=== PATIENT | female | born 1970 | race African-American/Black ===

== ENCOUNTER 2023-07-02 14:15 | Outpatient (AMB) | payer OTHER, SELFPAY ==
--- NOTE | 2023-07-02 14:17 | HO.NEPHOV ---
HPI HPI Comments History of Present Illness Details I had the privilege of seeing Nettie in follow-up of her recent renal transplant on 03/19/2023.( donor). She had PRA of 65. She was induced with Campath. She had delayed graft function. She required for dialysis treatments post transplant. 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 She had been getting immunosuppression with tacrolimus and mycophenolate. Her tacrolimus dosage has been adjusted with the help of ketoconazole. Her baseline serum creatinine has been around 1.2 to 1.5 mg/dL. CMV status of the donor was negative and recipient was positive. EBV status of donor and recipient were positive. Hepatitis B core antibody was negative for donor and recipient. Hepatitis C antibody was negative for donor and recipient. She had been BK virus negative by PCR as of 06/16/23. Prospera was completed on 06/26/2023. There is no history of any rejection to date. Her donor specific antibody has been negative. She had been getting envarsus 11mg and myfortic 720/720mg. Prophylaxis therapy included atovoquone daily ( d/c date 09/18/23 ) and valcyte (d/c date 09/18/23). She had 2 readmissions post transplant (05/03/23 for htn urgency & on 05/14/23 hyperkalemia). She currently feels very well and did not have any new complaints at the time of this office visit. [facility] Medical History (Updated 07/16/23 @ 06:20 by Jone Gallego MD) Anemia Seizures Hypertension Lupus History of end stage renal disease Surgical History (Updated 07/02/23 @ 14:50 by Jone Gallego MD) History of kidney transplant Vital Signs 07/02/23 14:18 Height 5 ft 2 in Weight 147 lb BMI 26.9 BP 140/90 H Blood Pressure Location Lt brachial Position Sitting Pulse 93 Pulse Source Pulse Oximeter Pulse Oximetry (%) 100 Oxygen Delivery Method Room Air Physical Exam Vital Signs: Last Vital Signs Pulse 93 07/02/23 14:18 BP 140/90 H 07/02/23 14:18 Pulse Ox 100 07/02/23 14:18 Oxygen Delivery Method Room Air 07/02/23 14:18 BMI result Body Mass Index 26.9 Const General: comfortable and no acute distress Orientation/consciousness: patient oriented x3 HEENT Head: Yes normocephalic Mouth: Normal oral and palatal mucosa present Eyes EOM: EOMs intact bilaterally Neck Neck: Yes supple Resp Auscultation: clear to auscultation bilaterally Cardio Jugular venous distension: no JVD Rate: regular rate GI Palpation (GI): Soft to palpation Auscultation: normal bowel sounds Skin General skin exam: no rashes or lesions noted Neuro General: patient oriented x3 and moves all extremities Extrem General: Yes no pedal edema Assessment & Plan Assessment & Plan (1) History of kidney transplant: Code(s): Z94.0 - Kidney transplant status (2) Hypertension: Code(s): I10 - Essential (primary) hypertension Qualifiers: Hypertension type: primary hypertension Qualified Code(s): I10 - Essential (primary) hypertension (3) Lupus: Code(s): M32.9 - Systemic lupus erythematosus, unspecified (4) Secondary hyperparathyroidism (of renal origin): Code(s): N25.81 - Secondary hyperparathyroidism of renal origin Plan 1. Allograft function: stable; follow up labs 2. Immunosuppression: tac level reviewed and dose has been adjusted 3. BP and volume status: stable; no changes 4. Metabolic parameters: potassium stable with diet changes; on magnesium and will follow up labs 5. Hematologic parameters: anemia stable; no need for intervention; follow for now 6. Prophylaxis/infection: reviewed; tolerating; no changes Orders: Orders Blood Urea Nitrogen 07/02/23 Z94.0 - Kidney transplant status Creatinine 07/02/23 Z94.0 - Kidney transplant status Calcium 07/02/23 Z94.0 - Kidney transplant status Complete Blood Count Auto Diff 07/02/23 Z94.0 - Kidney transplant status Electrolytes 07/02/23 Z94.0 - Kidney transplant status Magnesium 07/02/23 Z94.0 - Kidney transplant status Phosphorus 07/02/23 Z94.0 - Kidney transplant status Tacrolimus Prograf 07/02/23 Z94.0 - Kidney transplant status Coding Level of Care Code Est Pt Level 4 (42041) Diagnoses History of kidney transplant Z94.0 Primary hypertension I10 Hypertension type: primary hypertension Lupus M32.9 Secondary hyperparathyroidism (of renal origin) N25.81 Results Reviewed Nephrology Results: No Data to Display
[2023-07-02 14:18] VITALS: BP 140/90; PULSE 93; O2SAT 100; BMI 26.9
== END 2023-07-02 14:59 | disposition home or self-care (01) ==
PROVIDERS: Visit Provider Internal Medicine Nephrology
DX: Z94.0 Kidney transplant status (principal); I10 Essential (primary) hypertension; M32.9 Systemic lupus erythematosus, unspecified; N25.81 Secondary hyperparathyroidism of renal origin
CPT/HCPCS: 99214

== ENCOUNTER → 2023-07-02 14:15 | Outpatient (BNVA) | payer OTHER, SELFPAY | PROVIDERS: Visit Provider Internal Medicine Nephrology | DX: I10 Essential (primary) hypertension (principal); N25.81 Secondary hyperparathyroidism of renal origin; M32.9 Systemic lupus erythematosus, unspecified | CPT/HCPCS: 99212 ==

== ENCOUNTER 2023-07-16 09:25 | Outpatient (AMB) | payer OTHER, SELFPAY ==
--- NOTE | 2023-07-16 09:34 | HO.NEPHOV ---
HPI HPI Comments History of Present Illness Details I had the privilege of seeing Nettie in follow-up of her recent renal transplant on 03/19/2023.( donor). She had PRA of 65. She was induced with Campath. She had delayed graft function. She required for dialysis treatments post transplant. 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 She had been getting immunosuppression with tacrolimus and mycophenolate. Her tacrolimus dosage has been adjusted with the help of ketoconazole. Her baseline serum creatinine has been around 1.2 to 1.5 mg/dL. CMV status of the donor was negative and recipient was positive. EBV status of donor and recipient were positive. Hepatitis B core antibody was negative for donor and recipient. Hepatitis C antibody was negative for donor and recipient. She had been BK virus negative by PCR as of 06/16/23. Prospera was completed on 06/26/2023. There is no history of any rejection to date. Her donor specific antibody has been negative. She had been getting envarsus 11mg and myfortic 720/720mg. Prophylaxis therapy included atovoquone daily ( d/c date 09/18/23 ) and valcyte (d/c date 09/18/23). She had 2 readmissions post transplant (05/03/23 for htn urgency & on 05/14/23 hyperkalemia). She currently feels very well and did not have any new complaints at the time of this office visit. [facility] Medical History (Updated 07/16/23 @ 06:20 by Jone Gallego MD) Anemia Seizures Hypertension Lupus History of end stage renal disease Surgical History History of kidney transplant Vital Signs 07/16/23 09:56 Height 5 ft 2 in Weight 145 lb 8 oz BMI 26.6 BP 120/80 Blood Pressure Location Rt brachial Position Sitting Pulse 94 Pulse Source Pulse Oximeter Pulse Oximetry (%) 100 Oxygen Delivery Method Room Air Physical Exam Vital Signs: Last Vital Signs Pulse 94 07/16/23 09:56 BP 120/80 07/16/23 09:56 Pulse Ox 100 07/16/23 09:56 Oxygen Delivery Method Room Air 07/16/23 09:56 BMI result Body Mass Index 26.6 Const General: comfortable and no acute distress Orientation/consciousness: patient oriented x3 HEENT Head: Yes normocephalic Mouth: Normal oral and palatal mucosa present Eyes EOM: EOMs intact bilaterally Neck Neck: Yes supple Resp Auscultation: clear to auscultation bilaterally Cardio Jugular venous distension: no JVD Rate: regular rate GI Other: No tenderness over transplant Palpation (GI): Soft to palpation Auscultation: normal bowel sounds General: Yes no CVA tenderness Back/Spine/Pelvis Back: no CVA tenderness Skin General skin exam: no rashes or lesions noted Neuro General: patient oriented x3 and moves all extremities Extrem General: Yes no pedal edema Assessment & Plan Assessment & Plan (1) Lupus: Code(s): M32.9 - Systemic lupus erythematosus, unspecified (2) Hypertension: Code(s): I10 - Essential (primary) hypertension Qualifiers: Hypertension type: primary hypertension Qualified Code(s): I10 - Essential (primary) hypertension (3) History of kidney transplant: Code(s): Z94.0 - Kidney transplant status (4) Secondary hyperparathyroidism (of renal origin): Code(s): N25.81 - Secondary hyperparathyroidism of renal origin Plan 1. Allograft function: stable; follow up labs 2. Immunosuppression: tac level reviewed and dose has been adjusted 3. BP and volume status: stable; no changes 4. Metabolic parameters: potassium stable with diet changes; on magnesium and will follow up labs 5. Hematologic parameters: anemia stable; no need for intervention; follow for now 6. Prophylaxis/infection: reviewed; tolerating; no changes Orders: Orders Electrolytes 3 Weeks I10 - Essential (primary) hypertension, M32.9 - Systemic lupus erythematosus, unspecified, N25.81 - Secondary hyperparathyroidism of renal origin, Z94.0 - Kidney transplant status Calcium 3 Weeks I10 - Essential (primary) hypertension, M32.9 - Systemic lupus erythematosus, unspecified, N25.81 - Secondary hyperparathyroidism of renal origin, Z94.0 - Kidney transplant status Complete Blood Count Auto Diff 3 Weeks I10 - Essential (primary) hypertension, M32.9 - Systemic lupus erythematosus, unspecified, N25.81 - Secondary hyperparathyroidism of renal origin, Z94.0 - Kidney transplant status Tacrolimus Prograf 3 Weeks I10 - Essential (primary) hypertension, M32.9 - Systemic lupus erythematosus, unspecified, N25.81 - Secondary hyperparathyroidism of renal origin, Z94.0 - Kidney transplant status Creatinine 3 Weeks I10 - Essential (primary) hypertension, M32.9 - Systemic lupus erythematosus, unspecified, N25.81 - Secondary hyperparathyroidism of renal origin, Z94.0 - Kidney transplant status Blood Urea Nitrogen 3 Weeks I10 - Essential (primary) hypertension, M32.9 - Systemic lupus erythematosus, unspecified, N25.81 - Secondary hyperparathyroidism of renal origin, Z94.0 - Kidney transplant status Parathyroid Hormone Intact 3 Weeks I10 - Essential (primary) hypertension, M32.9 - Systemic lupus erythematosus, unspecified, N25.81 - Secondary hyperparathyroidism of renal origin, Z94.0 - Kidney transplant status Vitamin D 25-OH Total 3 Weeks I10 - Essential (primary) hypertension, M32.9 - Systemic lupus erythematosus, unspecified, N25.81 - Secondary hyperparathyroidism of renal origin, Z94.0 - Kidney transplant status Alanine Aminotransferase 3 Weeks I10 - Essential (primary) hypertension, M32.9 - Systemic lupus erythematosus, unspecified, N25.81 - Secondary hyperparathyroidism of renal origin, Z94.0 - Kidney transplant status Aspartate Amino Transferase 3 Weeks I10 - Essential (primary) hypertension, M32.9 - Systemic lupus erythematosus, unspecified, N25.81 - Secondary hyperparathyroidism of renal origin, Z94.0 - Kidney transplant status Coding Level of Care Code Est Pt Level 4 (73246) Diagnoses Lupus M32.9 Primary hypertension I10 Hypertension type: primary hypertension History of kidney transplant Z94.0 Secondary hyperparathyroidism (of renal origin) N25.81 Results Reviewed Nephrology Results: No Data to Display
[2023-07-16 09:56] VITALS: BP 120/80; PULSE 94; O2SAT 100; BMI 26.6
== END 2023-07-16 10:36 | disposition home or self-care (01) ==
PROVIDERS: Visit Provider Internal Medicine Nephrology
DX: M32.9 Systemic lupus erythematosus, unspecified (principal); I10 Essential (primary) hypertension; Z94.0 Kidney transplant status; N25.81 Secondary hyperparathyroidism of renal origin
CPT/HCPCS: 99214

== ENCOUNTER → 2023-07-16 09:25 | Outpatient (BNVA) | payer OTHER, SELFPAY | PROVIDERS: Visit Provider Internal Medicine Nephrology ==

== ENCOUNTER 2023-07-16 09:34 | Outpatient (REF) | payer OTHER, SELFPAY | END 2023-07-16 09:35 | disposition home or self-care (01) | LOC: HO.HKASLDS 09:34 | PROVIDERS: Visit Provider Internal Medicine Nephrology | DX: M32.9 Systemic lupus erythematosus, unspecified (principal); I10 Essential (primary) hypertension; N25.81 Secondary hyperparathyroidism of renal origin; Z94.0 Kidney transplant status | CPT/HCPCS: 99212 ==

== ENCOUNTER 2023-08-11 11:31 | Outpatient (AMB) | payer OTHER, SELFPAY ==
[2023-08-11 11:34] VITALS: BP 120/88; PULSE 78; O2SAT 98; BMI 26.7
--- NOTE | 2023-08-11 11:34 | HO.NEPHOV ---
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 She had PRA of 65. She was induced with Campath. She had delayed graft function. She required for dialysis treatments post transplant. 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 She had been getting immunosuppression with tacrolimus and mycophenolate. Her tacrolimus dosage has been adjusted with the help of ketoconazole. Her baseline serum creatinine has been around 1.2 to 1.5 mg/dL. CMV status of the donor was negative and recipient was positive. EBV status of donor and recipient were positive. Hepatitis B core antibody was negative for donor and recipient. Hepatitis C antibody was negative for donor and recipient. She had been BK virus negative by PCR as of 06/16/23. Prospera was completed on 06/26/2023. There is no history of any rejection to date. Her donor specific antibody has been negative. She had been getting envarsus 11mg and myfortic 720/720mg. Prophylaxis therapy included atovoquone daily ( d/c date 09/18/23 ) and valcyte (d/c date 09/18/23). She had 2 readmissions post transplant (05/03/23 for htn urgency & on 05/14/23 hyperkalemia). She occasionally gets GERD symptoms. She currently feels very well and did not have any new complaints at the time of this office visit. [facility] Medical History (Updated 07/16/23 @ 06:20 by Jone Gallego MD) Anemia Seizures Hypertension Lupus History of end stage renal disease Surgical History History of kidney transplant Social History (Updated 08/11/23 @ 11:48 by Winsome Angel MA) Alcohol intake: never Patient Tobacco Use Status: Never used Tobacco Use of substances other than those prescribed or required for medical reasons: No Physical Exam Vital Signs: Last Vital Signs Pulse 78 08/11/23 11:34 BP 120/88 08/11/23 11:34 Pulse Ox 98 08/11/23 11:34 Oxygen Delivery Method Room Air 08/11/23 11:34 BMI result Body Mass Index 26.7 Const General: comfortable and no acute distress Orientation/consciousness: patient oriented x3 HEENT Head: Yes normocephalic Mouth: Normal oral and palatal mucosa present Eyes EOM: EOMs intact bilaterally Neck Neck: Yes supple Resp Auscultation: clear to auscultation bilaterally Cardio Jugular venous distension: no JVD Rate: regular rate GI Palpation (GI): Soft to palpation Auscultation: normal bowel sounds General: Yes no CVA tenderness Back/Spine/Pelvis Back: no CVA tenderness Skin General skin exam: no rashes or lesions noted Neuro General: patient oriented x3 and moves all extremities Extrem General: Yes no pedal edema Results Reviewed Nephrology Results: No Data to Display Assessment & Plan Assessment & Plan (1) Secondary hyperparathyroidism (of renal origin): Code(s): N25.81 - Secondary hyperparathyroidism of renal origin Category: Medical (2) Lupus: Code(s): M32.9 - Systemic lupus erythematosus, unspecified Category: Medical (3) History of kidney transplant: Code(s): Z94.0 - Kidney transplant status Category: Surgical Plan 1. Allograft function: stable; follow up labs 2. Immunosuppression: tac level reviewed and dose has been adjusted 3. BP and volume status: stable; no changes 4. Metabolic parameters: potassium stable with diet changes; on magnesium and will follow up labs 5. Hematologic parameters: anemia stable; no need for intervention; follow for now 6. Prophylaxis/infection: reviewed; tolerating; no changes Orders: Orders Tacrolimus Prograf Today M32.9 - Systemic lupus erythematosus, unspecified, N25.81 - Secondary hyperparathyroidism of renal origin, Z94.0 - Kidney transplant status Blood Urea Nitrogen Today M32.9 - Systemic lupus erythematosus, unspecified, N25.81 - Secondary hyperparathyroidism of renal origin, Z94.0 - Kidney transplant status Electrolytes Today M32.9 - Systemic lupus erythematosus, unspecified, N25.81 - Secondary hyperparathyroidism of renal origin, Z94.0 - Kidney transplant status Calcium Today M32.9 - Systemic lupus erythematosus, unspecified, N25.81 - Secondary hyperparathyroidism of renal origin, Z94.0 - Kidney transplant status Aspartate Amino Transferase Today M32.9 - Systemic lupus erythematosus, unspecified, N25.81 - Secondary hyperparathyroidism of renal origin, Z94.0 - Kidney transplant status Creatinine Today M32.9 - Systemic lupus erythematosus, unspecified, N25.81 - Secondary hyperparathyroidism of renal origin, Z94.0 - Kidney transplant status Phosphorus Today M32.9 - Systemic lupus erythematosus, unspecified, N25.81 - Secondary hyperparathyroidism of renal origin, Z94.0 - Kidney transplant status Magnesium Today M32.9 - Systemic lupus erythematosus, unspecified, N25.81 - Secondary hyperparathyroidism of renal origin, Z94.0 - Kidney transplant status Alanine Aminotransferase Today M32.9 - Systemic lupus erythematosus, unspecified, N25.81 - Secondary hyperparathyroidism of renal origin, Z94.0 - Kidney transplant status Coding Level of Care Code Est Pt Level 4 (79029) Diagnoses Secondary hyperparathyroidism (of renal origin) N25.81 Lupus M32.9 History of kidney transplant Z94.0
== END 2023-08-11 12:22 | disposition home or self-care (01) ==
PROVIDERS: Visit Provider Internal Medicine Nephrology
DX: N25.81 Secondary hyperparathyroidism of renal origin (principal); M32.9 Systemic lupus erythematosus, unspecified; Z94.0 Kidney transplant status
CPT/HCPCS: 99214

== ENCOUNTER → 2023-08-11 11:31 | Outpatient (BNVA) | payer OTHER, SELFPAY | PROVIDERS: Visit Provider Internal Medicine Nephrology | DX: N25.81 Secondary hyperparathyroidism of renal origin (principal); M32.9 Systemic lupus erythematosus, unspecified; Z94.0 Kidney transplant status | CPT/HCPCS: 99212 ==

== ENCOUNTER 2023-08-12 10:07 | Outpatient (REF) | payer OTHER, SELFPAY ==
[2023-08-12 15:09] LABS: Anion Gap 13 (12-20); Carbon Dioxide 23 mmol/L (22-29); Chloride 111 mmol/L (96-108); Estimated Glomerular Filt Rate 44; Potassium 5.3 mmol/L (3.3-5.1); Sodium 142 mmol/L (135-145)
[2023-08-13 10:13] LABS: Tacrolimus Prograf 6.8 mcg/L
== END 2023-08-12 10:08 | disposition home or self-care (01) ==
LOC: HO.HKASLDS 10:07
PROVIDERS: Visit Provider Internal Medicine Nephrology
DX: N25.81 Secondary hyperparathyroidism of renal origin (principal); M32.9 Systemic lupus erythematosus, unspecified; I10 Essential (primary) hypertension; Z94.0 Kidney transplant status
CPT/HCPCS: 36415; 80051; 80197; 82310; 82565

== ENCOUNTER 2023-08-25 10:55 | Outpatient (AMB) | payer OTHER, SELFPAY ==
--- NOTE | 2023-08-25 11:12 | HO.NEPHOV_ITS ---
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 She had PRA of 65. She was induced with Campath. She had delayed graft function. She required for dialysis treatments post transplant. 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 She had been getting immunosuppression with tacrolimus and mycophenolate. Her tacrolimus dosage has been adjusted with the help of ketoconazole. Her baseline serum creatinine has been around 1.2 to 1.5 mg/dL. CMV status of the donor was negative and recipient was positive. EBV status of donor and recipient were positive. Hepatitis B core antibody was negative for donor and recipient. Hepatitis C antibody was negative for donor and recipient. She had been BK virus negative by PCR as of 06/16/23. Prospera was completed on 06/26/2023. There is no history of any rejection to date. Her donor specific antibody has been negative. She had been getting envarsus 11mg and myfortic 720/720mg. Prophylaxis therapy included atovoquone daily ( d/c date 09/18/23 ) and valcyte (d/c date 09/18/23). She had 2 readmissions post transplant (05/03/23 for htn urgency & on 05/14/23 hyperkalemia). She occasionally gets GERD symptoms. She currently feels very well and did not have any new complaints at the time of this office visit. [facility] Medical History (Updated 07/16/23 @ 06:20 by Jone Gallego MD) Anemia Seizures Hypertension Lupus History of end stage renal disease Surgical History History of kidney transplant Social History (Updated 08/11/23 @ 11:48 by Winsome Angel MA) Alcohol intake: never Patient Tobacco Use Status: Never used Tobacco Physical Exam Const General: comfortable and no acute distress Orientation/consciousness: patient oriented x3 HEENT Head: Yes normocephalic Mouth: Normal oral and palatal mucosa present Eyes EOM: EOMs intact bilaterally Neck Neck: Yes supple Resp Auscultation: clear to auscultation bilaterally Cardio Jugular venous distension: no JVD Rate: regular rate GI Palpation (GI): Soft to palpation Auscultation: normal bowel sounds General: Yes no CVA tenderness Back/Spine/Pelvis Back: no CVA tenderness Skin General skin exam: no rashes or lesions noted Neuro General: patient oriented x3 and moves all extremities Extrem General: Yes no pedal edema Results Reviewed Nephrology Results: Sodium 142 mmol/L (135-145) 08/12/23 Potassium 5.3 mmol/L (3.3-5.1) H 08/12/23 Chloride 111 mmol/L (96-108) H 08/12/23 Carbon Dioxide 23 mmol/L (22-29) 08/12/23 Creatinine 1.29 mg/dL (0.5-1.4) 08/12/23 Calcium 10.0 mg/dL (8.4-10.2) 08/12/23 Assessment & Plan Assessment & Plan (1) Secondary hyperparathyroidism (of renal origin): Code(s): N25.81 - Secondary hyperparathyroidism of renal origin Category: Medical (2) Lupus: Code(s): M32.9 - Systemic lupus erythematosus, unspecified Category: Medical (3) Hypertension: Code(s): I10 - Essential (primary) hypertension Category: Medical Qualifiers: Hypertension type: primary hypertension Qualified Code(s): I10 - Essential (primary) hypertension (4) History of kidney transplant: Code(s): Z94.0 - Kidney transplant status Category: Surgical Plan 1. Allograft function: stable; follow up labs 2. Immunosuppression: tac level reviewed and C/W with current dose 3. BP and volume status: stable; no changes 4. Metabolic parameters: potassium stable with diet changes; on magnesium and will follow up labs 5. Hematologic parameters: anemia stable; no need for intervention; follow for now 6. Prophylaxis/infection: reviewed; tolerating; no changes Orders: Orders Other Ref Test - Misc Today Z94.0 - Kidney transplant status Magnesium Today Z94.0 - Kidney transplant status Complete Blood Count Auto Diff Today Z94.0 - Kidney transplant status Calcium Today Z94.0 - Kidney transplant status Blood Urea Nitrogen Today Z94.0 - Kidney transplant status Creatinine Today Z94.0 - Kidney transplant status Alanine Aminotransferase Today Z94.0 - Kidney transplant status Tacrolimus Prograf Today Z94.0 - Kidney transplant status Phosphorus Today Z94.0 - Kidney transplant status Electrolytes Today Z94.0 - Kidney transplant status Aspartate Amino Transferase Today Z94.0 - Kidney transplant status Coding Level of Care Code Est Pt Level 4 (61354) Diagnoses Secondary hyperparathyroidism (of renal origin) N25.81 Lupus M32.9 Primary hypertension I10 Hypertension type: primary hypertension History of kidney transplant Z94.0
[2023-08-25 11:14] VITALS: BP 130/70; PULSE 110; O2SAT 97; BMI 27.0
== END 2023-08-25 11:45 | disposition home or self-care (01) ==
PROVIDERS: Visit Provider Internal Medicine Nephrology
DX: N25.81 Secondary hyperparathyroidism of renal origin (principal); M32.9 Systemic lupus erythematosus, unspecified; I10 Essential (primary) hypertension; Z94.0 Kidney transplant status
CPT/HCPCS: 99214

== ENCOUNTER → 2023-08-25 10:55 | Outpatient (BNVA) | payer OTHER, SELFPAY | PROVIDERS: Visit Provider Internal Medicine Nephrology | DX: N25.81 Secondary hyperparathyroidism of renal origin (principal); M32.9 Systemic lupus erythematosus, unspecified; I10 Essential (primary) hypertension; Z94.0 Kidney transplant status | CPT/HCPCS: 99212 ==

== ENCOUNTER 2023-09-10 09:07 | Outpatient (REF) | payer OTHER, SELFPAY | END 2023-09-10 09:08 | disposition home or self-care (01) | LOC: HO.HKASLDS 09:07 | PROVIDERS: Visit Provider Internal Medicine Nephrology | DX: Z13.89 Encounter for screening for other disorder (principal) ==

== ENCOUNTER 2023-09-15 16:06 | Outpatient (AMB) | payer OTHER, SELFPAY ==
--- NOTE | 2023-09-15 16:40 | HO.NEPHOV_ITS ---
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 She had PRA of 65. She was induced with Campath. She had delayed graft function. She required for dialysis treatments post transplant. 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 She had been getting immunosuppression with tacrolimus and mycophenolate. Her tacrolimus dosage has been adjusted with the help of ketoconazole. Her baseline serum creatinine has been around 1.2 to 1.5 mg/dL. CMV status of the donor was negative and recipient was positive. EBV status of donor and recipient were positive. Hepatitis B core antibody was negative for donor and recipient. Hepatitis C antibody was negative for donor and recipient. She had been BK virus negative by PCR as of 06/16/23. Prospera was completed on 06/26/2023. There is no history of any rejection to date. Her donor specific antibody has been negative. She had been getting envarsus 11mg and myfortic 720/720mg. Prophylaxis therapy included atovoquone daily ( d/c date 09/18/23 ) and valcyte (d/c date 09/18/23). She had 2 readmissions post transplant (05/03/23 for htn urgency & on 05/14/23 hyperkalemia). She occasionally gets GERD symptoms. She currently feels very well and did not have any new complaints at the time of this office visit. [facility] Medical History (Updated 07/16/23 @ 06:20 by Jone Gallego MD) Anemia Seizures Hypertension Lupus History of end stage renal disease Surgical History History of kidney transplant Social History Alcohol intake: never Patient Tobacco Use Status: Never used Tobacco Physical Exam Vital Signs: Last Vital Signs Pulse 98 09/15/23 16:41 BP 140/80 H 09/15/23 16:41 Pulse Ox 99 09/15/23 16:41 Oxygen Delivery Method Room Air 09/15/23 16:41 BMI result Body Mass Index 26.5 Const General: comfortable and no acute distress Orientation/consciousness: patient oriented x3 HEENT Head: Yes normocephalic Mouth: Normal oral and palatal mucosa present Eyes EOM: EOMs intact bilaterally Neck Neck: Yes supple Resp Auscultation: clear to auscultation bilaterally Cardio Jugular venous distension: no JVD Rate: regular rate GI Palpation (GI): Soft to palpation Auscultation: normal bowel sounds General: Yes no CVA tenderness Back/Spine/Pelvis Back: no CVA tenderness Skin General skin exam: no rashes or lesions noted Neuro General: patient oriented x3 and moves all extremities Extrem General: Yes no pedal edema Results Reviewed Nephrology Results: Sodium 142 mmol/L (135-145) 08/12/23 Potassium 5.3 mmol/L (3.3-5.1) H 08/12/23 Chloride 111 mmol/L (96-108) H 08/12/23 Carbon Dioxide 23 mmol/L (22-29) 08/12/23 Creatinine 1.29 mg/dL (0.5-1.4) 08/12/23 Calcium 10.0 mg/dL (8.4-10.2) 08/12/23 Assessment & Plan Assessment & Plan (1) Secondary hyperparathyroidism (of renal origin): Code(s): N25.81 - Secondary hyperparathyroidism of renal origin Category: Medical (2) Lupus: Code(s): M32.9 - Systemic lupus erythematosus, unspecified Category: Medical (3) Hypertension: Code(s): I10 - Essential (primary) hypertension Category: Medical Qualifiers: Hypertension type: primary hypertension Qualified Code(s): I10 - Essential (primary) hypertension (4) History of kidney transplant: Code(s): Z94.0 - Kidney transplant status Category: Surgical Plan 1. Allograft function: stable graft function 2. Immunosuppression: tac level reviewed and C/W with current dose 3. BP and volume status: stable; no changes 4. Metabolic parameters: potassium stable with diet changes; on magnesium and will follow up labs 5. Hematologic parameters: anemia stable; no need for intervention; follow for now 6. Prophylaxis/infection: Prophylaxis therapy included atovoquone daily ( d/c date 09/18/23 ) and valcyte (d/c date 09/18/23) Orders: Orders Complete Blood Count Auto Diff Today I10 - Essential (primary) hypertension, M32.9 - Systemic lupus erythematosus, unspecified, N25.81 - Secondary hyperparathyroidism of renal origin, Z94.0 - Kidney transplant status Creatinine Today I10 - Essential (primary) hypertension, M32.9 - Systemic lupus erythematosus, unspecified, N25.81 - Secondary hyperparathyroidism of renal origin, Z94.0 - Kidney transplant status Blood Urea Nitrogen Today I10 - Essential (primary) hypertension, M32.9 - Systemic lupus erythematosus, unspecified, N25.81 - Secondary hyperparathyroidism of renal origin, Z94.0 - Kidney transplant status Electrolytes Today I10 - Essential (primary) hypertension, M32.9 - Systemic lupus erythematosus, unspecified, N25.81 - Secondary hyperparathyroidism of renal origin, Z94.0 - Kidney transplant status Magnesium Today I10 - Essential (primary) hypertension, M32.9 - Systemic lupus erythematosus, unspecified, N25.81 - Secondary hyperparathyroidism of renal origin, Z94.0 - Kidney transplant status Creatinine 1 Month I10 - Essential (primary) hypertension, M32.9 - Systemic lupus erythematosus, unspecified, N25.81 - Secondary hyperparathyroidism of renal origin, Z94.0 - Kidney transplant status Blood Urea Nitrogen 1 Month I10 - Essential (primary) hypertension, M32.9 - Systemic lupus erythematosus, unspecified, N25.81 - Secondary hyperparathyroidism of renal origin, Z94.0 - Kidney transplant status Electrolytes 1 Month I10 - Essential (primary) hypertension, M32.9 - Systemic lupus erythematosus, unspecified, N25.81 - Secondary hyperparathyroidism of renal origin, Z94.0 - Kidney transplant status Tacrolimus Prograf 1 Month I10 - Essential (primary) hypertension, M32.9 - Systemic lupus erythematosus, unspecified, N25.81 - Secondary hyperparathyroidism of renal origin, Z94.0 - Kidney transplant status Tacrolimus Prograf Today I10 - Essential (primary) hypertension, M32.9 - Systemic lupus erythematosus, unspecified, N25.81 - Secondary hyperparathyroidism of renal origin, Z94.0 - Kidney transplant status Calcium Today I10 - Essential (primary) hypertension, M32.9 - Systemic lupus erythematosus, unspecified, N25.81 - Secondary hyperparathyroidism of renal origin, Z94.0 - Kidney transplant status Phosphorus Today I10 - Essential (primary) hypertension, M32.9 - Systemic lupus erythematosus, unspecified, N25.81 - Secondary hyperparathyroidism of renal origin, Z94.0 - Kidney transplant status Alanine Aminotransferase Today I10 - Essential (primary) hypertension, M32.9 - Systemic lupus erythematosus, unspecified, N25.81 - Secondary hyperparathyroid ism of renal origin, Z94.0 - Kidney transplant status Aspartate Amino Transferase Today I10 - Essential (primary) hypertension, M32.9 - Systemic lupus erythematosus, unspecified, N25.81 - Secondary hyperparathyroidism of renal origin, Z94.0 - Kidney transplant status Coding Level of Care Code Est Pt Level 4 (15714) Diagnoses Secondary hyperparathyroidism (of renal origin) N25.81 Lupus M32.9 Primary hypertension I10 Hypertension type: primary hypertension History of kidney transplant Z94.0
[2023-09-15 16:41] VITALS: BP 140/80; PULSE 98; O2SAT 99; BMI 26.5
== END 2023-09-15 17:01 | disposition home or self-care (01) ==
PROVIDERS: Visit Provider Internal Medicine Nephrology
DX: N25.81 Secondary hyperparathyroidism of renal origin (principal); M32.9 Systemic lupus erythematosus, unspecified; I10 Essential (primary) hypertension; Z94.0 Kidney transplant status
CPT/HCPCS: 99214

== ENCOUNTER → 2023-09-15 16:06 | Outpatient (BNVA) | payer OTHER, SELFPAY | PROVIDERS: Visit Provider Internal Medicine Nephrology | DX: N25.81 Secondary hyperparathyroidism of renal origin (principal); M32.9 Systemic lupus erythematosus, unspecified; I10 Essential (primary) hypertension; Z94.0 Kidney transplant status | CPT/HCPCS: 99212 ==

== ENCOUNTER 2023-10-29 13:51 | Outpatient (AMB) | payer OTHER, SELFPAY ==
[2023-10-29 14:08] VITALS: BP 116/70; PULSE 103; O2SAT 98; BMI 26.3
--- NOTE | 2023-10-29 14:08 | HO.NEPHOV_ITS ---
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 She had PRA of 65. She was induced with Campath. She had delayed graft function. She required for dialysis treatments post transplant. 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 She had been getting immunosuppression with tacrolimus and mycophenolate. Her tacrolimus dosage has been adjusted with the help of ketoconazole. Her baseline serum creatinine has been around 1.2 to 1.5 mg/dL. CMV status of the donor was negative and recipient was positive. EBV status of donor and recipient were positive. Hepatitis B core antibody was negative for donor and recipient. Hepatitis C antibody was negative for donor and recipient. She had been BK virus negative by PCR as of 06/16/23. Prospera was completed on 06/26/2023. There is no history of any rejection to date. Her donor specific antibody has been negative. She had been getting envarsus 11mg and myfortic 720/720mg. Prophylaxis therapy included atovoquone daily ( d/c date 09/18/23 ) and valcyte (d/c date 09/18/23). She had 2 readmissions post transplant (05/03/23 for htn urgency & on 05/14/23 hyperkalemia). She occasionally gets GERD symptoms. She currently feels very well and did not have any new complaints at the time of this office visit. [facility] Medical History (Updated 07/16/23 @ 06:20 by Jone Gallego MD) Anemia Seizures Hypertension Lupus History of end stage renal disease Surgical History History of kidney transplant Social History Alcohol intake: never Patient Tobacco Use Status: Never used Tobacco Physical Exam Vital Signs: BMI result Body Mass Index 26.3 Const General: comfortable and no acute distress Orientation/consciousness: patient oriented x3 HEENT Head: Yes normocephalic Mouth: Normal oral and palatal mucosa present Eyes EOM: EOMs intact bilaterally Neck Neck: Yes supple Resp Auscultation: clear to auscultation bilaterally Cardio Jugular venous distension: no JVD Rate: regular rate GI Palpation (GI): Soft to palpation Auscultation: normal bowel sounds General: Yes no CVA tenderness Back/Spine/Pelvis Back: no CVA tenderness Skin General skin exam: no rashes or lesions noted Neuro General: patient oriented x3 and moves all extremities Extrem General: Yes no pedal edema Results Reviewed Nephrology Results: Sodium 142 mmol/L (135-145) 08/12/23 Potassium 5.3 mmol/L (3.3-5.1) H 08/12/23 Chloride 111 mmol/L (96-108) H 08/12/23 Carbon Dioxide 23 mmol/L (22-29) 08/12/23 Creatinine 1.29 mg/dL (0.5-1.4) 08/12/23 Calcium 10.0 mg/dL (8.4-10.2) 08/12/23 Assessment & Plan Assessment & Plan (1) History of kidney transplant: Code(s): Z94.0 - Kidney transplant status Category: Surgical (2) Hypertension: Code(s): I10 - Essential (primary) hypertension Category: Medical Qualifiers: Hypertension type: primary hypertension Qualified Code(s): I10 - Essential (primary) hypertension (3) Secondary hyperparathyroidism (of renal origin): Code(s): N25.81 - Secondary hyperparathyroidism of renal origin Category: Medical Plan 1. Allograft function: stable graft function 2. Immunosuppression: C/W with current dose ; Repeat labs ordered 3. BP and volume status: stable; no changes 4. Metabolic parameters: potassium stable with diet changes; on magnesium and will follow up labs 5. Hematologic parameters: anemia stable; no need for intervention; follow for now 6. Prophylaxis/infection: Prophylaxis therapy included atovoquone daily ( d/dustin date 09/18/23 ) and valcyte (d/dustin date 09/18/23) Orders: Orders Complete Blood Count Auto Diff Today I10 - Essential (primary) hypertension, N25.81 - Secondary hyperparathyroidism of renal origin, Z94.0 - Kidney transplant status Creatinine Today I10 - Essential (primary) hypertension, N25.81 - Secondary hyperparathyroidism of renal origin, Z94.0 - Kidney transplant status Electrolytes Today I10 - Essential (primary) hypertension, N25.81 - Secondary hyperparathyroidism of renal origin, Z94.0 - Kidney transplant status Magnesium Today I10 - Essential (primary) hypertension, N25.81 - Secondary hyperparathyroidism of renal origin, Z94.0 - Kidney transplant status Tacrolimus Prograf Today I10 - Essential (primary) hypertension, N25.81 - Secondary hyperparathyroidism of renal origin, Z94.0 - Kidney transplant status Vitamin D 25-OH Total Today I10 - Essential (primary) hypertension, N25.81 - Secondary hyperparathyroidism of renal origin, Z94.0 - Kidney transplant status Blood Urea Nitrogen Today I10 - Essential (primary) hypertension, N25.81 - Secondary hyperparathyroidism of renal origin, Z94.0 - Kidney transplant status Calcium Today I10 - Essential (primary) hypertension, N25.81 - Secondary hyperparathyroidism of renal origin, Z94.0 - Kidney transplant status Phosphorus Today I10 - Essential (primary) hypertension, N25.81 - Secondary hyperparathyroidism of renal origin, Z94.0 - Kidney transplant status Protein Creatinine Ratio, Ur Today I10 - Essential (primary) hypertension, N25.81 - Secondary hyperparathyroidism of renal origin, Z94.0 - Kidney transplant status Coding Level of Care Code Est Pt Level 4 (49877) Diagnoses History of kidney transplant Z94.0 Primary hypertension I10 Hypertension type: primary hypertension Secondary hyperparathyroidism (of renal origin) N25.81
== END 2023-10-29 14:53 | disposition home or self-care (01) ==
PROVIDERS: PCP Internal Medicine; Visit Provider Internal Medicine Nephrology
DX: Z94.0 Kidney transplant status (principal); I10 Essential (primary) hypertension; N25.81 Secondary hyperparathyroidism of renal origin
CPT/HCPCS: 99214

== ENCOUNTER → 2023-10-29 13:51 | Outpatient (BNVA) | payer OTHER, SELFPAY | PROVIDERS: PCP Internal Medicine; Visit Provider Internal Medicine Nephrology | DX: I10 Essential (primary) hypertension (principal); N25.81 Secondary hyperparathyroidism of renal origin; Z94.0 Kidney transplant status | CPT/HCPCS: 99212 ==

== ENCOUNTER 2023-10-31 08:15 | Outpatient (REF) | payer OTHER, SELFPAY ==
[2023-10-31 08:45] LABS: MANUAL DIFF FLAG NO
[2023-10-31 08:52] LABS: Basophils Percent Auto 0.3 % (0-2); Eosinophils Absolute Auto 0.1 X10*3/uL (0.0-0.4); Eosinophils Percent Auto 2.7 % (0-4); Hematocrit 35.7 % (37.0-47.0); Hemoglobin 11.5 g/dl (12.0-16.0); Imm Gran Abs Auto 0.15 X10*3/uL (0.00-0.03); Lymphocytes Absolute Auto 0.4 X10*3/uL (1.2-4.9); Lymphocytes Percent Auto 12.3 % (20-40); Mean Corpuscular HGB Conc 32.2 g/dl (31.0-35.0); Mean Corpuscular Hemoglobin 30.7 pg (27.0-33.0); Mean Corpuscular Volume 95.2 fL (80.0-98.0); Mean Platelet Volume 8.9 fL (9.4-12.3); Monocytes Absolute Auto 0.4 X10*3/uL (0.1-1.2); Neutrophils Percent Auto 66.7 % (45-73); Platelet Count 192 X10*3/uL (160-400); Red Blood Count 3.75 X10*6/uL (4.20-5.50); Red Cell Distribution Width 13.3 % (11.0-16.0)
[2023-10-31 09:30] LABS: Anion Gap 12 (12-20); Blood Urea Nitrogen 32 mg/dL (9-16); Calcium 10.4 mg/dL (8.4-10.2); Carbon Dioxide 25 mmol/L (22-29); Chloride 110 mmol/L (96-108); Estimated Glomerular Filt Rate 41; Magnesium 1.7 mg/dL (1.6-2.6); Phosphorus 2.9 mg/dL (2.7-4.5); Sodium 142 mmol/L (135-145)
[2023-10-31 09:47] LABS: Vitamin D 25-OH Total 55.1 ng/mL (>30)
[2023-10-31 10:05] LABS: Creatinine Urine 77.68 mg/dL; Total Protein Urine Random < 7 mg/dL (<12)
[2023-11-01 21:49] LABS: Tacrolimus Prograf 6.9 mcg/L
== END 2023-10-31 08:16 | disposition home or self-care (01) ==
LOC: HO.LAB 08:15
PROVIDERS: Visit Provider Internal Medicine Nephrology
DX: N25.81 Secondary hyperparathyroidism of renal origin (principal); I10 Essential (primary) hypertension; Z94.0 Kidney transplant status
CPT/HCPCS: 36415; 80051; 80197; 82306; 82310; 82565; 82570; 83735; 84100; 84156; 84520; 85025

== ENCOUNTER 2023-11-26 14:46 | Outpatient (AMB) | payer OTHER, SELFPAY ==
--- NOTE | 2023-11-26 15:21 | HO.NEPHOV ---
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 She had PRA of 65. She was induced with Campath. She had delayed graft function. She required for dialysis treatments post transplant. 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 She had been getting immunosuppression with tacrolimus and mycophenolate. Her tacrolimus dosage has been adjusted with the help of ketoconazole. Her baseline serum creatinine has been around 1.2 to 1.5 mg/dL. CMV status of the donor was negative and recipient was positive. EBV status of donor and recipient were positive. Hepatitis B core antibody was negative for donor and recipient. Hepatitis C antibody was negative for donor and recipient. She had been BK virus negative by PCR as of 06/16/23. Prospera was completed on 06/26/2023. There is no history of any rejection to date. Her donor specific antibody has been negative. She had been getting envarsus 11mg and myfortic 720/720mg. Prophylaxis therapy included atovoquone daily ( d/c date 09/18/23 ) and valcyte (d/c date 09/18/23). She had 2 readmissions post transplant (05/03/23 for htn urgency & on 05/14/23 hyperkalemia). She occasionally gets GERD symptoms. She currently feels very well and did not have any new complaints at the time of this office visit. [facility] Medical History (Updated 07/16/23 @ 06:20 by Jone Gallego MD) Anemia Seizures Hypertension Lupus History of end stage renal disease Surgical History History of kidney transplant Social History Alcohol intake: never Patient Tobacco Use Status: Never used Tobacco Review of Systems Const All systems reviewed & are unremarkable except as noted in HPI and below Physical Exam Vital Signs: Last Vital Signs Pulse 92 11/26/23 15:22 BP 138/80 11/26/23 15:22 Pulse Ox 98 11/26/23 15:22 Oxygen Delivery Method Room Air 11/26/23 15:22 BMI result Body Mass Index 26.4 Const General: comfortable and no acute distress Orientation/consciousness: patient oriented x3 HEENT Head: Yes normocephalic Mouth: Normal oral and palatal mucosa present Eyes EOM: EOMs intact bilaterally Neck Neck: Yes supple Resp Auscultation: clear to auscultation bilaterally Cardio Jugular venous distension: no JVD Rate: regular rate GI Palpation (GI): Soft to palpation Auscultation: normal bowel sounds General: Yes no CVA tenderness Back/Spine/Pelvis Back: no CVA tenderness Skin General skin exam: no rashes or lesions noted Neuro General: patient oriented x3 and moves all extremities Extrem General: Yes no pedal edema Results Reviewed Nephrology Results: Hgb 11.5 g/dl (12.0-16.0) L 10/31/23 WBC 3.0 X10*3/uL (4.8-10.8) L 10/31/23 Plt Count 192 X10*3/uL (160-400) 10/31/23 Sodium 142 mmol/L (135-145) 10/31/23 Potassium 5.0 mmol/L (3.3-5.1) 10/31/23 Chloride 110 mmol/L (96-108) H 10/31/23 Carbon Dioxide 25 mmol/L (22-29) 10/31/23 BUN 32 mg/dL (9-16) H 10/31/23 Creatinine 1.37 mg/dL (0.5-1.4) 10/31/23 Calcium 10.4 mg/dL (8.4-10.2) H 10/31/23 Phosphorus 2.9 mg/dL (2.7-4.5) 10/31/23 Urine Creatinine 77.68 mg/dL 10/31/23 Protein/Creatinin Ratio TNP 10/31/23 Assessment & Plan Assessment & Plan (1) Secondary hyperparathyroidism (of renal origin): Code(s): N25.81 - Secondary hyperparathyroidism of renal origin Category: Medical (2) Lupus: Code(s): M32.9 - Systemic lupus erythematosus, unspecified Category: Medical (3) Hypertension: Code(s): I10 - Essential (primary) hypertension Category: Medical Qualifiers: Hypertension type: primary hypertension Qualified Code(s): I10 - Essential (primary) hypertension (4) History of kidney transplant: Code(s): Z94.0 - Kidney transplant status Category: Surgical Plan 1. Allograft function: stable graft function 2. Immunosuppression: Recently reduced cellcept; C/W with current dose ; Repeat labs ordered 3. BP and volume status: stable; no changes 4. Metabolic parameters: potassium stable with diet changes; on magnesium and will follow up labs 5. Hematologic parameters: anemia stable; no need for intervention; follow for now 6. Prophylaxis/infection: Prophylaxis therapy included atovoquone daily ( d/dustin date 09/18/23 ) and valcyte (d/dustin date 09/18/23) Orders: Orders Blood Urea Nitrogen 2 Months I10 - Essential (primary) hypertension, M32.9 - Systemic lupus erythematosus, unspecified, N25.81 - Secondary hyperparathyroidism of renal origin, Z94.0 - Kidney transplant status Calcium 2 Months I10 - Essential (primary) hypertension, M32.9 - Systemic lupus erythematosus, unspecified, N25.81 - Secondary hyperparathyroidism of renal origin, Z94.0 - Kidney transplant status Magnesium 2 Months I10 - Essential (primary) hypertension, M32.9 - Systemic lupus erythematosus, unspecified, N25.81 - Secondary hyperparathyroidism of renal origin, Z94.0 - Kidney transplant status Complete Blood Count Auto Diff 2 Months I10 - Essential (primary) hypertension, M32.9 - Systemic lupus erythematosus, unspecified, N25.81 - Secondary hyperparathyroidism of renal origin, Z94.0 - Kidney transplant status Creatinine 2 Months I10 - Essential (primary) hypertension, M32.9 - Systemic lupus erythematosus, unspecified, N25.81 - Secondary hyperparathyroidism of renal origin, Z94.0 - Kidney transplant status Electrolytes 2 Months I10 - Essential (primary) hypertension, M32.9 - Systemic lupus erythematosus, unspecified, N25.81 - Secondary hyperparathyroidism of renal origin, Z94.0 - Kidney transplant status Parathyroid Hormone Intact 2 Months I10 - Essential (primary) hypertension, M32.9 - Systemic lupus erythematosus, unspecified, N25.81 - Secondary hyperparathyroidism of renal origin, Z94.0 - Kidney transplant status Tacrolimus Prograf 2 Months I10 - Essential (primary) hypertension, M32.9 - Systemic lupus erythematosus, unspecified, N25.81 - Secondary hyperparathyroidism of renal origin, Z94.0 - Kidney transplant status Phosphorus 2 Months I10 - Essential (primary) hypertension, M32.9 - Systemic lupus erythematosus, unspecified, N25.81 - Secondary hyperparathyroidism of renal origin, Z94.0 - Kidney transplant status Medications: Changed From clonidine HCl 0.1 mg PO BID 60 tabs 3RF To clonidine HCl 0.1 mg PO BID 180 tabs 3RF 90 days Coding Level of Care Code Est Pt Level 4 (33729) Diagnoses Secondary hyperparathyroidism (of renal origin) N25.81 Lupus M32.9 Primary hypertension I10 Hypertension type: primary hypertension History of kidney transplant Z94.0
[2023-11-26 15:22] VITALS: BP 138/80; PULSE 92; O2SAT 98; BMI 26.4
== END 2023-11-26 15:49 | disposition home or self-care (01) ==
PROVIDERS: PCP Internal Medicine; Visit Provider Internal Medicine Nephrology
DX: N25.81 Secondary hyperparathyroidism of renal origin (principal); M32.9 Systemic lupus erythematosus, unspecified; I10 Essential (primary) hypertension; Z94.0 Kidney transplant status
CPT/HCPCS: 99214

== ENCOUNTER → 2023-11-26 14:46 | Outpatient (BNVA) | payer OTHER, SELFPAY | PROVIDERS: PCP Internal Medicine; Visit Provider Internal Medicine Nephrology | DX: N25.81 Secondary hyperparathyroidism of renal origin (principal); M32.9 Systemic lupus erythematosus, unspecified; I10 Essential (primary) hypertension; Z94.0 Kidney transplant status | CPT/HCPCS: 99212 ==

== ENCOUNTER 2024-01-23 07:05 | Outpatient (REF) | payer OTHER, SELFPAY ==
[2024-01-23 08:02] LABS: Basophils Percent Auto 0.6 % (0-2); Eosinophils Absolute Auto 0.2 X10*3/uL (0.0-0.4); Eosinophils Percent Auto 5.1 % (0-4); Hematocrit 41.9 % (37.0-47.0); Hemoglobin 13.1 g/dl (12.0-16.0); Imm Gran Abs Auto 0.01 X10*3/uL (0.00-0.03); Imm Gran Pct Auto 0.3 % (0.0-0.4); Lymphocytes Absolute Auto 1.2 X10*3/uL (1.2-4.9); Lymphocytes Percent Auto 34.5 % (20-40); MANUAL DIFF FLAG SCAN; Mean Corpuscular HGB Conc 31.3 g/dl (31.0-35.0); Mean Corpuscular Hemoglobin 29.8 pg (27.0-33.0); Mean Corpuscular Volume 95.4 fL (80.0-98.0); Mean Platelet Volume 9.7 fL (9.4-12.3); Monocytes Absolute Auto 0.4 X10*3/uL (0.1-1.2); Monocytes Percent Auto 9.9 % (2-11); Neutrophils Absolute Auto 1.8 x10*3/uL (2.0-8.3); Neutrophils Percent Auto 49.6 % (45-73); PLT CLUMP 1; Red Blood Count 4.39 X10*6/uL (4.20-5.50); SCAN SMEAR FLAG 1
[2024-01-23 08:06] LABS: White Blood Count 3.5 X10*3/uL (4.8-10.8)
[2024-01-23 08:18] LABS: Anion Gap 11 (12-20); Blood Urea Nitrogen 42 mg/dL (9-16); Calcium 11.1 mg/dL (8.4-10.2); Carbon Dioxide 25 mmol/L (22-29); Chloride 110 mmol/L (96-108); Estimated Glomerular Filt Rate 41; Magnesium 1.7 mg/dL (1.6-2.6); Phosphorus 3.5 mg/dL (2.7-4.5); Potassium 4.5 mmol/L (3.3-5.1); Sodium 141 mmol/L (135-145)
[2024-01-23 09:15] LABS: Platelet Count 214 X10*3/uL (160-400); SLIDE REVIEW VERIFIED
[2024-01-24 14:38] LABS: Tacrolimus Prograf 8.4 mcg/L
== END 2024-01-23 07:06 | disposition home or self-care (01) ==
LOC: HO.LAB 07:05
PROVIDERS: PCP Internal Medicine; Visit Provider Internal Medicine Nephrology
DX: N25.81 Secondary hyperparathyroidism of renal origin (principal); M32.9 Systemic lupus erythematosus, unspecified; I10 Essential (primary) hypertension; Z94.0 Kidney transplant status
CPT/HCPCS: 36415; 80051; 80197; 82310; 82565; 83735; 83970; 84100; 84520; 85025

== ENCOUNTER 2024-01-26 15:30 | Outpatient (AMB) | payer OTHER, SELFPAY ==
--- NOTE | 2024-01-26 15:32 | HO.NEPHOV ---
Vital Signs 01/26/24 15:34 Height 5 ft 2 in Weight 159 lb 4 oz BMI 29.1 BP 110/70 Blood Pressure Location Rt radial Position Sitting Pulse 87 Pulse Source Pulse Oximeter Pulse Oximetry (%) 99 Oxygen Delivery Method Room Air Intake Visit Reasons: 2 mon follow up/ Conf [employer] Impregnating Range Tender Required: No Accompanied by: Self / Same As Patient Allergies gabapentin Allergy (Mild, Verified 01/26/24 15:37) Unknown lisinopril Allergy (Mild, Verified 01/26/24 15:37) Unknown losartan Allergy (Mild, Verified 01/26/24 15:37) Unknown HPI Comments Details: I had the privilege of seeing Nettie in follow-up of her recent renal transplant on 03/19/2023.( donor). She had PRA of 65. She was induced with Campath. She had delayed graft function. She required for dialysis treatments post transplant. 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 She had been getting immunosuppression with tacrolimus and mycophenolate. Her tacrolimus dosage has been adjusted with the help of ketoconazole. Her baseline serum creatinine has been around 1.2 to 1.5 mg/dL. CMV status of the donor was negative and recipient was positive. EBV status of donor and recipient were positive. Hepatitis B core antibody was negative for donor and recipient. Hepatitis C antibody was negative for donor and recipient. She had been BK virus negative by PCR as of 06/16/23. Prospera was completed on 06/26/2023. There is no history of any rejection to date. Her donor specific antibody has been negative. She had been getting envarsus 11mg and myfortic 720/720mg. Prophylaxis therapy included atovoquone daily ( d/c date 09/18/23 ) and valcyte (d/c date 09/18/23). She had 2 readmissions post transplant (05/03/23 for htn urgency & on 05/14/23 hyperkalemia). She occasionally gets GERD symptoms. She currently feels very well and did not have any new complaints at the time of this office visit. [facility] Medical History (Updated 07/16/23 @ 06:20 by Jone Gallego MD) Anemia Seizures Hypertension Lupus History of end stage renal disease Surgical History History of kidney transplant Social History Alcohol intake: never Patient Tobacco Use Status: Never used Tobacco Review of Systems Const All systems reviewed & are unremarkable except as noted in HPI and below Physical Exam Vital Signs: Last Vital Signs Pulse 87 01/26/24 15:34 BP 110/70 01/26/24 15:34 Pulse Ox 99 01/26/24 15:34 Oxygen Delivery Method Room Air 01/26/24 15:34 BMI result Body Mass Index 29.1 Const General: comfortable and no acute distress Orientation/consciousness: patient oriented x3 HEENT Head: Yes normocephalic Mouth: Normal oral and palatal mucosa present Eyes EOM: EOMs intact bilaterally Neck Neck: Yes supple Resp Auscultation: clear to auscultation bilaterally Cardio Jugular venous distension: no JVD Rate: regular rate GI Palpation (GI): Soft to palpation Auscultation: normal bowel sounds General: Yes no CVA tenderness Back/Spine/Pelvis Back: no CVA tenderness Skin General skin exam: no rashes or lesions noted Neuro General: patient oriented x3 and moves all extremities Extrem General: Yes no pedal edema Results Reviewed Nephrology Results: Hgb 13.1 g/dl (12.0-16.0) 01/23/24 WBC 3.5 X10*3/uL (4.8-10.8) L 01/23/24 Plt Count 214 X10*3/uL (160-400) 01/23/24 Sodium 141 mmol/L (135-145) 01/23/24 Potassium 4.5 mmol/L (3.3-5.1) 01/23/24 Chloride 110 mmol/L (96-108) H 01/23/24 Carbon Dioxide 25 mmol/L (22-29) 01/23/24 BUN 42 mg/dL (9-16) H 01/23/24 Creatinine 1.35 mg/dL (0.5-1.4) 01/23/24 Calcium 11.1 mg/dL (8.4-10.2) H 01/23/24 Phosphorus 3.5 mg/dL (2.7-4.5) 01/23/24 PTH Intact 108.0 pg/mL (8.7-77.1) H 01/23/24 Urine Creatinine 77.68 mg/dL 10/31/23 Protein/Creatinin Ratio TNP 10/31/23 Assessment & Plan Assessment & Plan (1) History of kidney transplant: Code(s): Z94.0 - Kidney transplant status Category: Surgical (2) Hypertension: Code(s): I10 - Essential (primary) hypertension Category: Medical Qualifiers: Hypertension type: primary hypertension Qualified Code(s): I10 - Essential (primary) hypertension (3) Lupus: Code(s): M32.9 - Systemic lupus erythematosus, unspecified Category: Medical (4) Secondary hyperparathyroidism (of renal origin): Code(s): N25.81 - Secondary hyperparathyroidism of renal origin Category: Medical Plan 1. Allograft function: stable graft function 2. Immunosuppression: C/W with current medications 3. BP and volume status: stable; no changes 4. Metabolic parameters: potassium stable with diet changes; on magnesium and will follow up labs 5. Hematologic parameters: anemia stable; no need for intervention; follow for now 6. Prophylaxis/infection: Prophylaxis therapy included atovoquone daily ( d/dustin date 09/18/23 ) and valcyte (d/dustin date 09/18/23) Stopped NaHCO3 and Vit D for now Orders: Orders Creatinine 2 Months I10 - Essential (primary) hypertension, M32.9 - Systemic lupus erythematosus, unspecified, N25.81 - Secondary hyperparathyroidism of renal origin, Z94.0 - Kidney transplant status Blood Urea Nitrogen 2 Months I10 - Essential (primary) hypertension, M32.9 - Systemic lupus erythematosus, unspecified, N25.81 - Secondary hyperparathyroidism of renal origin, Z94.0 - Kidney transplant status Electrolytes 2 Months I10 - Essential (primary) hypertension, M32.9 - Systemic lupus erythematosus, unspecified, N25.81 - Secondary hyperparathyroidism of renal origin, Z94.0 - Kidney transplant status Calcium 2 Months I10 - Essential (primary) hypertension, M32.9 - Systemic lupus erythematosus, unspecified, N25.81 - Secondary hyperparathyroidism of renal origin, Z94.0 - Kidney transplant status Phosphorus 2 Months I10 - Essential (primary) hypertension, M32.9 - Systemic lupus erythematosus, unspecified, N25.81 - Secondary hyperparathyroidism of renal origin, Z94.0 - Kidney transplant status Complete Blood Count Auto Diff 2 Months I10 - Essential (primary) hypertension, M32.9 - Systemic lupus erythematosus, unspecified, N25.81 - Secondary hyperparathyroidism of renal origin, Z94.0 - Kidney transplant status Tacrolimus Prograf 2 Months I10 - Essential (primary) hypertension, M32.9 - Systemic lupus erythematosus, unspecified, N25.81 - Secondary hyperparathyroidism of renal origin, Z94.0 - Kidney transplant status Medications: Discontinued cholecalciferol (vitamin D3) Discontinued Reason: Doctor's Order 1,250 mcg PO QWEEK 90 days 13 caps 1RF Coding Level of Care Code Est Pt Level 4 (84479) Diagnoses History of kidney transplant Z94.0 Primary hypertension I10 Hypertension type: primary hypertension Lupus M32.9 Secondary hyperparathyroidism (of renal origin) N25.81
[2024-01-26 15:34] VITALS: BP 110/70; PULSE 87; O2SAT 99; BMI 29.1
== END 2024-01-26 16:05 | disposition home or self-care (01) ==
PROVIDERS: PCP Internal Medicine; Visit Provider Internal Medicine Nephrology
DX: Z94.0 Kidney transplant status (principal); I10 Essential (primary) hypertension; M32.9 Systemic lupus erythematosus, unspecified; N25.81 Secondary hyperparathyroidism of renal origin
CPT/HCPCS: 99214

== ENCOUNTER → 2024-01-26 15:30 | Outpatient (BNVA) | payer OTHER, SELFPAY | PROVIDERS: PCP Internal Medicine; Visit Provider Internal Medicine Nephrology | DX: N25.81 Secondary hyperparathyroidism of renal origin (principal); M32.9 Systemic lupus erythematosus, unspecified; I10 Essential (primary) hypertension; Z94.0 Kidney transplant status | CPT/HCPCS: 99212 ==

== ENCOUNTER 2024-04-20 08:44 | Outpatient (REF) | payer OTHER, SELFPAY | END 2024-04-20 08:45 | disposition home or self-care (01) | LOC: HO.HKASLDS 08:44 | PROVIDERS: Visit Provider Internal Medicine Nephrology | DX: Z13.89 Encounter for screening for other disorder (principal) | CPT/HCPCS: 36415 ==

== ENCOUNTER 2024-04-21 14:42 | Outpatient (AMB) | payer OTHER, SELFPAY ==
--- NOTE | 2024-04-21 14:54 | HO.NEPHOV_ITS ---
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 She had PRA of 65. She was induced with Campath. She had delayed graft function. She required for dialysis treatments post transplant. 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 She had been getting immunosuppression with tacrolimus and mycophenolate. Her tacrolimus dosage has been adjusted with the help of ketoconazole. Her baseline serum creatinine has been around 1.2 to 1.5 mg/dL. CMV status of the donor was negative and recipient was positive. EBV status of donor and recipient were positive. Hepatitis B core antibody was negative for donor and recipient. Hepatitis C antibody was negative for donor and recipient. She had been BK virus negative by PCR as of 06/16/23. Prospera was completed on 06/26/2023. There is no history of any rejection to date. Her donor specific antibody has been negative. She had been getting envarsus 11mg and myfortic 720/720mg. Prophylaxis therapy included atovoquone daily ( d/c date 09/18/23 ) and valcyte (d/c date 09/18/23). She had 2 readmissions post transplant (05/03/23 for htn urgency & on 05/14/23 hyperkalemia). She occasionally gets GERD symptoms. She currently feels very well and did not have any new complaints at the time of this office visit. [facility] Medical History (Updated 07/16/23 @ 06:20 by Jone Gallego MD) Anemia Seizures Hypertension Lupus History of end stage renal disease Surgical History History of kidney transplant Social History Alcohol intake: never Patient Tobacco Use Status: Never used Tobacco Review of Systems Const All systems reviewed & are unremarkable except as noted in HPI and below Physical Exam Vital Signs: Last Vital Signs Pulse 88 04/21/24 14:57 BP 110/80 04/21/24 14:57 Pulse Ox 99 04/21/24 14:57 Oxygen Delivery Method Room Air 04/21/24 14:57 BMI result Body Mass Index 30.7 Const General: comfortable and no acute distress Orientation/consciousness: patient oriented x3 HEENT Head: Yes normocephalic Mouth: Normal oral and palatal mucosa present Eyes EOM: EOMs intact bilaterally Neck Neck: Yes supple Resp Auscultation: clear to auscultation bilaterally Cardio Jugular venous distension: no JVD Rate: regular rate GI Palpation (GI): Soft to palpation Auscultation: normal bowel sounds General: Yes no CVA tenderness Back/Spine/Pelvis Back: no CVA tenderness Skin General skin exam: no rashes or lesions noted Neuro General: patient oriented x3 and moves all extremities Extrem General: Yes no pedal edema Assessment & Plan Assessment & Plan (1) History of kidney transplant: Code(s): Z94.0 - Kidney transplant status Category: Surgical (2) Hypertension: Code(s): I10 - Essential (primary) hypertension Category: Medical Qualifiers: Hypertension type: primary hypertension Qualified Code(s): I10 - Essential (primary) hypertension (3) Lupus: Code(s): M32.9 - Systemic lupus erythematosus, unspecified Category: Medical (4) Secondary hyperparathyroidism (of renal origin): Code(s): N25.81 - Secondary hyperparathyroidism of renal origin Category: Medical Plan 1. Allograft function: stable graft function 2. Immunosuppression: C/W with current medications 3. BP and volume status: stable; no changes 4. Metabolic parameters: potassium stable with diet changes; on magnesium and will follow up labs 5. Hematologic parameters: anemia stable; no need for intervention; follow for now 6. Prophylaxis/infection: Prophylaxis therapy included atovoquone daily ( d/dustin date 09/18/23 ) and valcyte (d/dustin date 09/18/23) Orders: Orders Electrolytes 1 Day I10 - Essential (primary) hypertension, M32.9 - Systemic lupus erythematosus, unspecified, N25.81 - Secondary hyperparathyroidism of renal origin, Z94.0 - Kidney transplant status Phosphorus 1 Day I10 - Essential (primary) hypertension, M32.9 - Systemic lupus erythematosus, unspecified, N25.81 - Secondary hyperparathyroidism of renal origin, Z94.0 - Kidney transplant status Protein Creatinine Ratio, Ur 1 Day I10 - Essential (primary) hypertension, M32.9 - Systemic lupus erythematosus, unspecified, N25.81 - Secondary hyperparathyroidism of renal origin, Z94.0 - Kidney transplant status Parathyroid Hormone Intact 1 Day I10 - Essential (primary) hypertension, M32.9 - Systemic lupus erythematosus, unspecified, N25.81 - Secondary hyperparathyroidism of renal origin, Z94.0 - Kidney transplant status Vitamin D 25-OH Total 1 Day I10 - Essential (primary) hypertension, M32.9 - Systemic lupus erythematosus, unspecified, N25.81 - Secondary hyperparathyroidism of renal origin, Z94.0 - Kidney transplant status Complete Blood Count Auto Diff 2 Months I10 - Essential (primary) hypertension, M32.9 - Systemic lupus erythematosus, unspecified, N25.81 - Secondary hyperparathyroidism of renal origin, Z94.0 - Kidney transplant status Creatinine 2 Months I10 - Essential (primary) hypertension, M32.9 - Systemic lupus erythematosus, unspecified, N25.81 - Secondary hyperparathyroidism of renal origin, Z94.0 - Kidney transplant status Complete Blood Count Auto Diff 1 Day I10 - Essential (primary) hypertension, M32.9 - Systemic lupus erythematosus, unspecified, N25.81 - Secondary hyperparathyroidism of renal origin, Z94.0 - Kidney transplant status Creatinine 1 Day I10 - Essential (primary) hypertension, M32.9 - Systemic lupus erythematosus, unspecified, N25.81 - Secondary hyperparathyroidism of renal origin, Z94.0 - Kidney transplant status Blood Urea Nitrogen 1 Day I10 - Essential (primary) hypertension, M32.9 - Systemic lupus erythematosus, unspecified, N25.81 - Secondary hyperparathyroidism of renal origin, Z94.0 - Kidney transplant status Calcium 1 Day I10 - Essential (primary) hypertension, M32.9 - Systemic lupus erythematosus, unspecified, N25.81 - Secondary hyperparathyroidism of renal origin, Z94.0 - Kidney transplant status Magnesium 1 Day I10 - Essential (primary) hypertension, M32.9 - Systemic lupus erythematosus, unspecified, N25.81 - Secondary hyperparathyroidism of renal origin, Z94.0 - Kidney transplant status Tacrolimus Prograf 1 Day I10 - Essential (primary) hypertension, M32.9 - Systemic lupus erythematosus, unspecified, N25.81 - Secondary hyperparathyroidism of renal origin, Z94.0 - Kidney transplant status Alanine Aminotransferase 1 Day I10 - Essential (primary) hypertension, M32.9 - Systemic lupus erythematosus, unspecified, N25.81 - Secondary hyperparathyroidism of renal origin, Z94.0 - Kidney transplant status Aspartate Amino Transferase 1 Day I10 - Essential (primary) hypertension, M32.9 - Systemic lupus erythematosus, unspecified, N25.81 - Secondary hyperparathyroidism of renal origin, Z94.0 - Kidney transplant status Tacrolimus Prograf 2 Months I10 - Essential (primary) hypertension, M32.9 - Systemic lupus erythematosus, unspecified, N25.81 - Secondary hyperparathyroidism of renal origin, Z94.0 - Kidney transplant status Blood Urea Nitrogen 2 Months I10 - Essential (primary) hypertension, M32.9 - Systemic lupus erythematosus, unspecified, N25.81 - Secondary hyperparathyroidism of renal origin, Z94.0 - Kidney transplant status Electrolytes 2 Months I10 - Essential (primary) hypertension, M32.9 - Systemic lupus erythematosus, unspecified, N25.81 - Secondary hyperparathyroidism of renal origin, Z94.0 - Kidney transplant status Coding Level of Care Code Est Pt Level 4 (39317) Diagnoses History of kidney transplant Z94.0 Primary hypertension I10 Hypertension type: primary hypertension Lupus M32.9 Secondary hyperparathyroidism (of renal origin) N25.81
[2024-04-21 14:57] VITALS: BP 110/80; PULSE 88; O2SAT 99; BMI 30.7
== END 2024-04-21 15:31 | disposition home or self-care (01) ==
PROVIDERS: PCP Internal Medicine; Visit Provider Internal Medicine Nephrology
DX: Z94.0 Kidney transplant status (principal); I10 Essential (primary) hypertension; M32.9 Systemic lupus erythematosus, unspecified; N25.81 Secondary hyperparathyroidism of renal origin
CPT/HCPCS: 99214

== ENCOUNTER → 2024-04-21 14:42 | Outpatient (BNVA) | payer OTHER, SELFPAY | PROVIDERS: PCP Internal Medicine; Visit Provider Internal Medicine Nephrology | DX: I10 Essential (primary) hypertension (principal); N25.81 Secondary hyperparathyroidism of renal origin; M32.9 Systemic lupus erythematosus, unspecified; Z94.0 Kidney transplant status | CPT/HCPCS: 99212 ==

== ENCOUNTER 2024-04-22 08:21 | Outpatient (REF) | payer OTHER, SELFPAY ==
[2024-04-22 08:53] LABS: MANUAL DIFF FLAG NO
[2024-04-22 09:29] LABS: Basophils Percent Auto 0.7 % (0-2); Eosinophils Absolute Auto 0.1 X10*3/uL (0.0-0.4); Eosinophils Percent Auto 3.3 % (0-4); Hematocrit 41.4 % (37.0-47.0); Hemoglobin 13.4 g/dl (12.0-16.0); Imm Gran Abs Auto 0.01 X10*3/uL (0.00-0.03); Imm Gran Pct Auto 0.3 % (0.0-0.4); Lymphocytes Absolute Auto 1.1 X10*3/uL (1.2-4.9); Mean Corpuscular HGB Conc 32.4 g/dl (31.0-35.0); Mean Corpuscular Hemoglobin 29.8 pg (27.0-33.0); Mean Platelet Volume 8.9 fL (9.4-12.3); Monocytes Absolute Auto 0.3 X10*3/uL (0.1-1.2); Monocytes Percent Auto 11.1 % (2-11); Neutrophils Absolute Auto 1.5 x10*3/uL (2.0-8.3); Neutrophils Percent Auto 49.6 % (45-73); Platelet Count 211 X10*3/uL (160-400); Red Cell Distribution Width 13.1 % (11.0-16.0); White Blood Count 3.1 X10*3/uL (4.8-10.8)
[2024-04-22 10:09] LABS: Alanine Aminotransferase 42 U/L (0-31); Anion Gap 9 (12-20); Aspartate Amino Transferase 29 U/L (5-31); Blood Urea Nitrogen 34 mg/dL (9-16); Calcium 10.2 mg/dL (8.4-10.2); Carbon Dioxide 25 mmol/L (22-29); Chloride 113 mmol/L (96-108); Estimated Glomerular Filt Rate 40; Magnesium 1.6 mg/dL (1.6-2.6); Sodium 142 mmol/L (135-145)
[2024-04-22 10:27] LABS: Creatinine Urine 110.09 mg/dL; Total Protein Urine Random < 7 mg/dL (<12)
[2024-04-22 10:33] LABS: Vitamin D 25-OH Total 34.7 ng/mL (>30)
[2024-04-22 10:35] LABS: Parathyroid Hormone Intact 134.6 pg/mL (8.7-77.1)
[2024-04-23 11:33] LABS: Tacrolimus Prograf 7.4 mcg/L
== END 2024-04-22 08:22 | disposition home or self-care (01) ==
LOC: HO.LAB 08:21
PROVIDERS: PCP Internal Medicine; Visit Provider Internal Medicine Nephrology
DX: Z94.0 Kidney transplant status (principal); N25.81 Secondary hyperparathyroidism of renal origin; M32.9 Systemic lupus erythematosus, unspecified; I10 Essential (primary) hypertension
CPT/HCPCS: 36415; 80051; 80197; 82306; 82310; 82565; 82570; 83735; 83970; 84100; 84156; 84450; 84460; 84520; 85025

== ENCOUNTER 2024-06-30 15:01 | Outpatient (AMB) | payer OTHER, SELFPAY ==
--- NOTE | 2024-06-30 15:09 | HO.NEPHOV ---
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 She had PRA of 65. She was induced with Campath. She had delayed graft function. She required for dialysis treatments post transplant. 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 She had been getting immunosuppression with tacrolimus and mycophenolate. Her tacrolimus dosage has been adjusted with the help of ketoconazole. Her baseline serum creatinine has been around 1.2 to 1.5 mg/dL. CMV status of the donor was negative and recipient was positive. EBV status of donor and recipient were positive. Hepatitis B core antibody was negative for donor and recipient. Hepatitis C antibody was negative for donor and recipient. She had been BK virus negative by PCR as of 06/16/23. Prospera was completed on 06/26/2023. There is no history of any rejection to date. Her donor specific antibody has been negative. She had been getting envarsus 11mg and myfortic 720/720mg. Prophylaxis therapy included atovoquone daily ( d/c date 09/18/23 ) and valcyte (d/c date 09/18/23). She had 2 readmissions post transplant (05/03/23 for htn urgency & on 05/14/23 hyperkalemia). She occasionally gets GERD symptoms. She currently feels very well and did not have any new complaints at the time of this office visit. [facility] Medical History (Updated 07/16/23 @ 06:20 by Jone Gallego MD) Anemia Seizures Hypertension Lupus History of end stage renal disease Surgical History History of kidney transplant Social History Alcohol intake: never Patient Tobacco Use Status: Never used Tobacco Review of Systems Const All systems reviewed & are unremarkable except as noted in HPI and below Physical Exam Const General: comfortable and no acute distress Orientation/consciousness: patient oriented x3 HEENT Head: Yes normocephalic Mouth: Normal oral and palatal mucosa present Eyes EOM: EOMs intact bilaterally Neck Neck: Yes supple Resp Auscultation: clear to auscultation bilaterally Cardio Jugular venous distension: no JVD Rate: regular rate GI Palpation (GI): Soft to palpation Auscultation: normal bowel sounds General: Yes no CVA tenderness Back/Spine/Pelvis Back: no CVA tenderness Skin General skin exam: no rashes or lesions noted Neuro General: patient oriented x3 and moves all extremities Extrem General: Yes no pedal edema Results Reviewed Nephrology Results: Hgb 13.4 g/dl (12.0-16.0) 04/22/24 WBC 3.1 X10*3/uL (4.8-10.8) L 04/22/24 Plt Count 211 X10*3/uL (160-400) 04/22/24 Sodium 142 mmol/L (135-145) 04/22/24 Potassium 5.0 mmol/L (3.3-5.1) 04/22/24 Chloride 113 mmol/L (96-108) H 04/22/24 Carbon Dioxide 25 mmol/L (22-29) 04/22/24 BUN 34 mg/dL (9-16) H 04/22/24 Creatinine 1.38 mg/dL (0.5-1.4) 04/22/24 Calcium 10.2 mg/dL (8.4-10.2) 04/22/24 Phosphorus 3.0 mg/dL (2.7-4.5) 04/22/24 PTH Intact 134.6 pg/mL (8.7-77.1) H 04/22/24 Urine Creatinine 110.09 mg/dL 04/22/24 Protein/Creatinin Ratio TNP 04/22/24 Assessment & Plan Assessment & Plan (1) History of kidney transplant: Code(s): Z94.0 - Kidney transplant status Category: Surgical (2) Hypertension: Code(s): I10 - Essential (primary) hypertension Category: Medical Qualifiers: Hypertension type: primary hypertension Qualified Code(s): I10 - Essential (primary) hypertension (3) Secondary hyperparathyroidism (of renal origin): Code(s): N25.81 - Secondary hyperparathyroidism of renal origin Category: Medical Plan 1. Allograft function: stable graft function( no labs recently) 2. Immunosuppression: C/W with current medications 3. BP and volume status: stable; no changes 4. Metabolic parameters: potassium stable with diet changes; on magnesium and will follow up labs 5. Hematologic parameters: anemia stable; no need for intervention; follow for now 6. Prophylaxis/infection: Prophylaxis therapy included atovoquone daily ( d/dustin date 09/18/23 ) and valcyte (d/dustin date 09/18/23) Orders: Orders Calcium Today I10 - Essential (primary) hypertension, N25.81 - Secondary hyperparathyroidism of renal origin, Z94.0 - Kidney transplant status Vitamin D 25-OH Total Today I10 - Essential (primary) hypertension, N25.81 - Secondary hyperparathyroidism of renal origin, Z94.0 - Kidney transplant status Parathyroid Hormone Intact Today I10 - Essential (primary) hypertension, N25.81 - Secondary hyperparathyroidism of renal origin, Z94.0 - Kidney transplant status Phosphorus Today I10 - Essential (primary) hypertension, N25.81 - Secondary hyperparathyroidism of renal origin, Z94.0 - Kidney transplant status Electrolytes 2 Months I10 - Essential (primary) hypertension, N25.81 - Secondary hyperparathyroidism of renal origin, Z94.0 - Kidney transplant status Calcium 2 Months I10 - Essential (primary) hypertension, N25.81 - Secondary hyperparathyroidism of renal origin, Z94.0 - Kidney transplant status Phosphorus 2 Months I10 - Essential (primary) hypertension, N25.81 - Secondary hyperparathyroidism of renal origin, Z94.0 - Kidney transplant status Complete Blood Count Auto Diff Today I10 - Essential (primary) hypertension, N25.81 - Secondary hyperparathyroidism of renal origin, Z94.0 - Kidney transplant status Creatinine Today I10 - Essential (primary) hypertension, N25.81 - Secondary hyperparathyroidism of renal origin, Z94.0 - Kidney transplant status Blood Urea Nitrogen Today I10 - Essential (primary) hypertension, N25.81 - Secondary hyperparathyroidism of renal origin, Z94.0 - Kidney transplant status Electrolytes Today I10 - Essential (primary) hypertension, N25.81 - Secondary hyperparathyroidism of renal origin, Z94.0 - Kidney transplant status Magnesium Today I10 - Essential (primary) hypertension, N25.81 - Secondary hyperparathyroidism of renal origin, Z94.0 - Kidney transplant status Tacrolimus Prograf 2 Days Z94.0 - Kidney transplant status Complete Blood Count Auto Diff 2 Months I10 - Essential (primary) hypertension, N25.81 - Secondary hyperparathyroidism of renal origin, Z94.0 - Kidney transplant status Creatinine 2 Months I10 - Essential (primary) hypertension, N25.81 - Secondary hyperparathyroidism of renal origin, Z94.0 - Kidney transplant status Blood Urea Nitrogen 2 Months I10 - Essential (primary) hypertension, N25.81 - Secondary hyperparathyroidism of renal origin, Z94.0 - Kidney transplant status Magnesium 2 Months I10 - Essential (primary) hypertension, N25.81 - Secondary hyperparathyroidism of renal origin, Z94.0 - Kidney transplant status Tacrolimus Prograf Today I10 - Essential (primary) hypertension, N25.81 - Secondary hyperparathyroidism of renal origin, Z94.0 - Kidney transplant status Alanine Aminotransferase Today I10 - Essential (primary) hypertension, N25.81 - Secondary hyperparathyroidism of renal origin, Z94.0 - Kidney transplant status Aspartate Amino Transferase Today I10 - Essential (primary) hypertension, N25.81 - Secondary hyperparathyroidism of renal origin, Z94.0 - Kidney transplant status Coding Level of Care Code Est Pt Level 4 (73577) Diagnoses History of kidney transplant Z94.0 Primary hypertension I10 Hypertension type: primary hypertension Secondary hyperparathyroidism (of renal origin) N25.81
[2024-06-30 15:13] VITALS: BP 110/70; BMI 32.8
--- OUTSIDE RECORDS SUMMARY | 2024-06-30 17:25 | XMS_ITS | Clinical Summary ---
Author Organization [facility] Address [address] [place] [address] Phone Care Team Providers Care Salvage Engineering Technician Name Role Phone Unavailable Primary Care Provider Unavailabl e Allergies Active Allergy Reactions Criticality Noted Date Comments Lisinopril 06/14/2020 Other reaction(s): lips swelling Medications levothyroxine sodium (TIROSINT) 100 MCG capsule Take 100 mcg by mouth 1 (one) time each day Active levETIRAcetam (KEPPRA) 750 MG tablet TAKE 1 TABLET BY MOUTH EVERY DAY PLUS TAKE AN ADDITIONAL 1 TABLET DAILY ON THURSDAY, THURSDAY, AND THURSDAY AFTER DIALYSIS 42 tablet 2 Active NIFEdipine CC (ADALAT CC) 90 MG 24 hr tablet Take 1 tablet (90 mg total) by mouth in the morning and 1 tablet (90 mg total) in the evening. Do not crush, chew, or split.. 60 tablet 2 Active Cholecalciferol (Vitamin D3) 25 MCG (1000 UT) capsule TAKE 2 CAPSULES BY MOUTH EVERY MORNING 60 capsule 3 3 Active labetalol (NORMODYNE) 200 MG tablet TAKE 2 TABLETS BY MOUTH THREE TIMES A DAY (MORNING, NOON, AND EVENING) FOR 30 DAYS 180 tablet 1 3 Active spironolactone (ALDACTONE) 50 MG tablet TAKE 1 TABLET BY MOUTH EVERY MORNING 30 tablet 6 3 Active cloNIDine (CATAPRES) 0.1 MG tablet Take 1 tablet (0.1 mg total) by mouth in the morning and 1 tablet (0.1 mg total) in the evening. 60 tablet 2 4 Active Family History Medical History Relation Comments Diabetes Father Hypertension Mother Relation Status Comments Father Alive Mother Alive Social History Tobacco Use Types Packs/Day Years Used Date Smoking Tobacco: Never Alcohol Use Standard Drinks/Week Comments Yes 0 (1 standard drink = 0.6 oz pure alcohol) Alcoholic Drinks/day: Occasional social drink Comments Unknown Sex and Gender Information Value Date Recorded Sex Assigned at Not on file Legal Sex Female 5:06 PM EST Gender Identity Not on file Sexual Orientation Not on file Last Filed Vital Signs Vital Sign Reading Time Taken Comments Blood Pressure 187/123 04/09/2021 9:52 AM EST Pulse 94 04/09/2021 9:52 AM EST Temperature 36.8 ??C (98.3 ??F) 04/09/2021 9:52 AM ES T Respiratory Rate - - Oxygen Saturation 99% 10/28/2019 12:00 PM EDT Inhaled Oxygen Concentration - - Weight 88 kg (194 lb) 10/28/2019 12:00 PM EDT Height 157.5 cm (5' 2 ) 10/28/2019 12:00 PM EDT Body Mass Index 35.48 10/28/2019 12:00 PM EDT Plan of Treatment Health Maintenance Due Date Last Done Comments Breast Cancer Screening 1972 Hepatitis B Vaccine (1 of 3 - 19+ 3-dose series) 05/22 Pneumococcal Vaccine: Pediat rics (0 to 5 Years) and At-Risk Patients (6 to 64 Years) (2 of 2 - PCV) 10/21/2018 10/21/2017 Colorectal Cancer Screening: Annual FOBT 2021 Colorectal Cancer Screening: Colonoscopy 2021 Colorectal Cancer Screening: Sigmoidoscopy 2021 Influenza Vaccine (#1) [address] [place] [address] [place] [address] CARE DUAL SNP ([id number]) [facility] CARE DUAL SNP ([id number]) MEDICARE [place]ICAID [place]
--- OUTSIDE RECORDS SUMMARY | 2024-06-30 17:25 | XMS_ITS | Encounter Summary ---
Author Organization [facility], Address [address] [place] [address] Phone Care Team Providers Care Cut Pressman Name Role Phone Unavailable Primary Care Provider Unavailabl e Encounter Details Date Type Department Care Team (Late st Contact Info) Description 05/02/2023 Documentation Only [facility] Dr [address] [place] [phone] Radu Arevalo MD [address] [place] [address] [place] [phone] Social History Tobacco Use Types Packs/Day Years Used Date Smoking Tobacco: Never Alcohol Use Standard Drinks/Week Comments Yes 0 (1 standard drink = 0.6 oz pure alcohol) Alcoholic Drinks/day: Occasional social drink Comments Unknown Sex and Gender Information Value Date Recorded Sex Assigned at Not on file Legal Sex Female 5:06 PM EST Gender Identity Not on file Sexual Orientation Not on file documented as of this encounter Plan of Treatment Not on file documented as of this encounter Visit Diagnoses Not on filedocumented in this encounter
--- OUTSIDE RECORDS SUMMARY | 2024-06-30 17:25 | XMS_ITS | Clinical Summary ---
Author Organization [facility] Address [address] [place] [address] Care Team Providers Care Chief Dietitian Name Role Phone Lore Vieira MD Primary Care Provider [phone] Surgical History Surgery Date Site/Laterality Comments BREAST REDUCTION PROCEDURE: [place] BREAST REDUCTION CHOLECYSTECTOMY PROCEDURE: DC LAPAROSCOPY SURG CHOLECYSTECTOMY TUBAL LIGATION PROCEDURE: HISTORICAL TUBAL LIGATION OTHER SURGICAL HISTORY 01/2020 PROCEDURE: ---- OTHER ----; COMMENT: peritoneal dialysis port placement OTHER SURGICAL HISTORY Left PROCEDURE: HISTORY OTHER; COMMENT: [place]Part[place]. Crespo upper arm fistula placement under general anesthesia. OTHER SURGICAL HISTORY 07/05/2021 PROCEDURE: [place] LAPAROSCOPY W/LYSIS OF ADHESIONS Medical History Medical History Date Comments Lupus nephritis ([facility]) 06/29/2017 DX:Lup us nephritis ([facility]) Hyperlipidemia 07/07/2017 DX:Hyperlipidemi a Morbid obesity with BMI of 4 0.0-44.9, adult ([facility]) 06/22/2006 DX:Morbid obesity with BMI o f 40.0-44.9, adult ([facility]) Vitamin D deficiency 07/07/2017 DX:Vitamin D deficiency CHF (congestive heart failur e) ([facility]) 07/07/2017 DX:CHF (congestive heart mikael lure) ([facility]) Nephrotic syndrome 07/07/2017 DX:Nephrotic syndrome Proteinuria 07/07/2017 DX:Proteinuria; [facility] (hypertension) 07/07/2017 DX:HTN (hyper tension); COMMENT: Followed [facility] Nephropathy ESRD (end stage renal diseas e) on dialysis ([facility]) DX:ESRD (end stage renal dis ease) on dialysis ([facility]); COMMENT: M/W/F dialysis since Nov 2019. Fares Lupus DX:Lupus History of gastritis 03/10/2022 DX:History of gastritis Family History Medical History Relation Name Comments Diabetes Father Hypertension Maternal Grandfather CAD Diabetes Maternal Grandmother hyperte nsion Other: lupus Maternal Grandmother Hypertension Mother Relation Name Status Comments Father Alive Maternal Grandfather Maternal Grandmother Mother Alive Son Alive Social History Tobacco Use Types Packs/Day Years Used Date Smoking Tobacco: Never Smokeless Tobacco: Never Alcohol Use Standard Drinks/Week Comments Not Currently 0 (1 standard drink = 0.6 oz pur e alcohol) Comments Unknown Sex and Gender Information Value Date Recorded Sex Assigned at Not on file Legal Sex Female 7:35 AM EST Gender Identity Not on file Sexual Orientation Not on file Obstetrics History Last Filed Vital Signs Vital Sign Reading Time Taken Comments Blood Pressure 191/139 11/12/2021 1:50 PM EDT automated - forearm Pulse 73 11/12/2021 1:35 PM EDT Temperature - - Respiratory Rate - - Oxygen Saturation - - Inhaled Oxygen Concentration - - Weight 56.6 kg (124 lb 11.2 oz) 11/12/2021 1:35 PM EDT Height 160 cm (5' 3 ) 11/12/2021 1:35 PM EDT Body Mass Index 22.09 11/12/2021 1:35 PM EDT Plan of Treatment Health Maintenance Due Date Last Done Comments Breast Cancer Screening 1972 Hepatitis B Vaccines (1 of 3 - 19+ 3-dose series) 1991 Cervical Cancer Screening: P ap Smear 1993 Pneumococcal Vaccine: 50+ Years (2 of 2 - PCV) 10/21/2018 10/21/2017 Pneumococcal Vaccine: Pediatrics (0 to 5 Years) and At-Risk Patients (6 to 64 Years) (2 of 2 - PCV) 10/21/2018 10/21/2017 Cholesterol Screening (Lipid Panel) 03/16/2022 Colorectal Cancer Screening: Colonoscopy 03/16/2022 Depression Screening 03/16/2022 HIV Screening 03/16/2022 Hepatitis C Screening 03/16/2022 Social Influencers of Health Screening 03/16/2022 Hypertension/CHF/CAD Annual BMP Blood Test 03/23/2022 DTaP,Tdap,and Td Vaccines (3 - Td or Tdap) 04/28/2022 04/28/2012, 06/22/2006 Zoster Vaccines (1 of 2) 2022 COVID-19 Vaccine (3 - 4-2 5 season) 2023 07/05/2020, 05/24/2020 Influenza Vaccine (#1) 2023 HIB Vaccines Aged Out No longer eligi ble based on patient's age to complete this topic HPV Vaccines Aged Out No longer eligi ble based on patient's age to complete this topic Hepatitis A Vaccines Aged Out No long er eligible based on patient's age to complete this topic IPV Vaccines Aged Out No longer eligi ble based on patient's age to complete this topic MMR Vaccines Aged Out No longer eligi ble based on patient's age to complete this topic Meningococcal ACWY Vaccine Aged Out N o longer eligible based on patient's age to complete this topic Meningococcal B Vacine Aged Out No lo nger eligible based on patient's age to complete this topic RSV Immunization Patients Under 20 months Aged Out No longer eligible b ased on patient's age to complete this topic Varicella Vaccines Aged Out No longer eligible based on patient's age to complete this topic Advance Directives Documents on File Type Date Recorded Patient Land Acquisition Specialist Expl anation Health Care Decision (hx) 09/10/2020 AD HOPKINS DIRECTIVE Health Care Decision (hx) 09/10/2020 AD HOPKINS DIRECTIVE Health Care Decision (hx) 09/10/2020 AD HOPKINS DIRECTIVE Health Care Decision (hx) 09/10/2020 AD HOPKINS DIRECTIVE Health Care Decision (hx) 09/10/2020 AD HOPKINS DIRECTIVE Health Care Decision (hx) 09/10/2020 AD HOPKINS DIRECTIVE Health Care Decision (hx) 09/10/2020 AD HOPKINS DIRECTIVE Health Care Decision (hx) 09/10/2020 AD HOPKINS DIRECTIVE Health Care Decision (hx) 09/10/2020 AD HOPKINS DIRECTIVE Health Care Decision (hx) 09/10/2020 AD HOPKINS DIRECTIVE Health Care Decision (hx) 09/10/2020 AD HOPKINS DIRECTIVE Health Care Decision (hx) 09/10/2020 AD HOPKINS DIRECTIVE Health Care Decision (hx) 09/10/2020 AD HOPKINS DIRECTIVE Health Care Decision (hx) 09/08/2020 AD HOPKINS DIRECTIVE Health Care Decision (hx) 09/08/2020 AD HOPKINS DIRECTIVE Health Care Decision (hx) 09/08/2020 AD HOPKINS DIRECTIVE Health Care Decision (hx) 09/08/2020 AD HOPKINS DIRECTIVE Health Care Decision (hx) 09/08/2020 AD HOPKINS DIRECTIVE Health Care Decision (hx) 09/08/2020 AD HOPKINS DIRECTIVE Health Care Decision (hx) 09/08/2020 AD HOPKINS DIRECTIVE Health Care Decision (hx) 09/08/2020 AD HOPKINS DIRECTIVE Health Care Decision (hx) 09/08/2020 AD HOPKINS DIRECTIVE Health Care Decision (hx) 09/08/2020 AD HOPKINS DIRECTIVE Health Care Decision (hx) 09/08/2020 AD HOPKINS DIRECTIVE Health Care Decision (hx) 09/08/2020 AD HOPKINS DIRECTIVE Health Care Decision (hx) 09/08/2020 AD HOPKINS DIRECTIVE Care Teams Chief Dietitian Relationship Specialty Start Date End Date Lore Vieira MD PCP - General Internal Medicine 04/30/17
--- OUTSIDE RECORDS SUMMARY | 2024-06-30 17:25 | XMS_ITS | Clinical Summary ---
Author Organization [facility] Address [address] [place] [address] Care Team Providers Care Rug Cutter Name Role Phone Lore Vieira Primary Care Provider Allergies Active Allergy Reactions Criticality Noted Date Comments Lisinopril 06/14/2020 Medications Medication Sig Dispensed Refills Start Date End Date Status B [id number] ACID PO Take by mouth. 0 Active Clobetasol Prop Emollient Base 0.05 % emollient cream Apply topically 2 (two) times a day. 0 Active Ear Wax Drops (CARBAMIDE PEROXIDE;DEBROX) 6.5 % otic solution 2 (two) times a day. 0 Active labetalol (NORMODYNE) 300 MG tablet Take 300 mg by mouth 2 (two) times a day. 0 Active hydrALAZINE (APRESOLINE) 100 MG tablet Take 100 mg by mouth 2 (two) times a day. 0 Active NIFEdipine (PROCARDIA XL) 60 MG 24 hr tablet Take 60 mg by mouth daily. 0 Active Active Problems Problem Noted Date Diagnosed Date Neutropenia 06/23/2020 Anemia due to chronic kidney disease 06/23/2020 Social History Tobacco Use Types Packs/Day Years Used Date Smoking Tobacco: Never Smokeless Tobacco: Never Alcohol Use Standard Drinks/Week Comments No 0 (1 standard drink = 0.6 oz pur e alcohol) Sex and Gender Information Value Date Recorded Sex Assigned at Not on file Gender Identity Not on file Sexual Orientation Not on file Last Filed Vital Signs Vital Sign Reading Time Taken Comments Blood Pressure 160/97 06/14/2020 3:16 PM EST Pulse 73 06/14/2020 3:16 PM EST Temperature 37.4 ??C (99.3 ??F) 06/14/2020 3:16 PM ES T Respiratory Rate - - Oxygen Saturation - - Inhaled Oxygen Concentration - - Weight 76.7 kg (169 lb) 06/14/2020 3:16 PM EST Height - - Body Mass Index - - Plan of Treatment Health Maintenance Due Date Last Done Comments Hepatitis B Vaccines (1 of 3 - 3-dose series) 1972 Hepatitis C Screening 1972 Depression Screening 1984 Preventative Health Evaluation 1990 Cervical Cancer Screening (Pap Smear) 1993 Colon Cancer Screening (Colonoscopy) 2017 DTap / Tdap / Td (3 - Td or Tdap) 04/28/2022 04/28/2012, 06/22/2006 Breast Cancer Screening (Mammogram) 2022 Shingrix-Zoster Vaccine (1 o f 2) 2022 COVID-19 Vaccine (2 - 2023-2 5 season) 2023 05/17/2020 Influenza Vaccine (#1) 2023 Pneumococcal Vaccine Aged Out 10/21/2017 No long er eligible based on patient's age to complete this topic RSV Ped < 20 months Aged Out No longe r eligible based on patient's age to complete this topic Care Teams Rug Cutter Relationship Specialty Start Date End Date Lore Vieira [address] [place] [address] PCP - General Internal Medicine 06/14/20
== END 2024-06-30 15:52 | disposition home or self-care (01) ==
LOC: HO.HKAS 15:02
PROVIDERS: PCP Internal Medicine; Visit Provider Internal Medicine Nephrology
DX: Z94.0 Kidney transplant status (principal); I10 Essential (primary) hypertension; N25.81 Secondary hyperparathyroidism of renal origin
CPT/HCPCS: 99214

== ENCOUNTER 2024-06-30 15:01 | Outpatient (REF) | payer OTHER, SELFPAY ==
[2024-06-30 18:11] LABS: MANUAL DIFF FLAG NO
[2024-06-30 18:34] LABS: Basophils Percent Auto 0.3 % (0-2); Eosinophils Absolute Auto 0.1 X10*3/uL (0.0-0.4); Eosinophils Percent Auto 2.4 % (0-4); Hematocrit 40.1 % (37.0-47.0); Hemoglobin 12.9 g/dl (12.0-16.0); Imm Gran Abs Auto 0.01 X10*3/uL (0.00-0.03); Imm Gran Pct Auto 0.3 % (0.0-0.4); Lymphocytes Absolute Auto 1.2 X10*3/uL (1.2-4.9); Lymphocytes Percent Auto 36.1 % (20-40); Mean Corpuscular HGB Conc 32.2 g/dl (31.0-35.0); Mean Corpuscular Hemoglobin 29.9 pg (27.0-33.0); Mean Platelet Volume 8.7 fL (9.4-12.3); Monocytes Absolute Auto 0.3 X10*3/uL (0.1-1.2); Monocytes Percent Auto 9.4 % (2-11); Neutrophils Absolute Auto 1.7 x10*3/uL (2.0-8.3); Neutrophils Percent Auto 51.5 % (45-73); Platelet Count 210 X10*3/uL (160-400); Red Blood Count 4.31 X10*6/uL (4.20-5.50); Red Cell Distribution Width 13.1 % (11.0-16.0); White Blood Count 3.3 X10*3/uL (4.8-10.8)
[2024-06-30 18:43] LABS: Alanine Aminotransferase 43 U/L (0-31); Anion Gap 12 (12-20); Aspartate Amino Transferase 22 U/L (5-31); Blood Urea Nitrogen 35 mg/dL (9-16); Calcium 9.9 mg/dL (8.4-10.2); Carbon Dioxide 21 mmol/L (22-29); Chloride 113 mmol/L (96-108); Estimated Glomerular Filt Rate 45; Magnesium 1.7 mg/dL (1.6-2.6); Potassium 4.5 mmol/L (3.3-5.1); Sodium 141 mmol/L (135-145)
[2024-06-30 19:00] LABS: Vitamin D 25-OH Total 31.4 ng/mL (>30)
[2024-06-30 19:16] LABS: Parathyroid Hormone Intact 177.1 pg/mL (8.7-77.1)
[2024-07-01 15:08] LABS: Tacrolimus Prograf 10.5 mcg/L
== END 2024-06-30 15:02 | disposition home or self-care (01) ==
LOC: HO.HKASLDS 15:01
PROVIDERS: PCP Internal Medicine; Visit Provider Internal Medicine Nephrology
DX: I10 Essential (primary) hypertension (principal); N25.81 Secondary hyperparathyroidism of renal origin; Z94.0 Kidney transplant status
CPT/HCPCS: 36415; 80051; 80197; 82306; 82310; 82565; 83735; 83970; 84100; 84450; 84460; 84520; 85025; 99212

== ENCOUNTER 2024-07-02 07:41 | Outpatient (REF) | payer OTHER, SELFPAY ==
[2024-07-03 12:14] LABS: Tacrolimus Prograf 5.4 mcg/L
== END 2024-07-02 07:42 | disposition home or self-care (01) ==
LOC: HO.LAB 07:41
PROVIDERS: PCP Internal Medicine; Visit Provider Internal Medicine Nephrology
DX: Z94.0 Kidney transplant status (principal)
CPT/HCPCS: 36415; 80197

== ENCOUNTER 2024-08-22 08:38 | Outpatient (REF) | payer OTHER, SELFPAY ==
--- OUTSIDE RECORDS SUMMARY | 2024-08-22 08:43 | XMS_ITS | Clinical Summary ---
Author Organization [facility] Address [address] [place] [address] Phone Care Team Providers Care Brazing Furnace Operator Name Role Phone Unavailable Primary Care Provider [...] - 19+ 3-dose series) 05/22 Pneumococcal Vaccine: 50+ Years (2 of 2 - PCV) 019 10/21/2017 Colorectal Cancer Screening: Annual FOBT 2021 Colorectal Cancer Screening: Colonoscopy 2021 Colorectal Cancer Screening: Sigmoidoscopy 2021 Influenza Vaccine (Season Ended) 2024 Pneumococcal Vaccine: Peds ( 0 to 5 Years) and At-Risk Patients (6 to 49 Years) Discontinued 10/21/2017 Insurance Care Dual SNP ([id number]) [facility] Care Dual SNP ([id number]) RAFAEL GALLARDO [id number] Medicare Medicaid [place]
--- OUTSIDE RECORDS SUMMARY | 2024-08-22 08:43 | XMS_ITS | Clinical Summary ---
Author Organization [facility] Address [address] [place] [address] Care Team Providers Care Motel Food Service Supervisor Name Role Phone Lore Vieira MD Primary Care Provider [phone] Surgical History Surgery Date Site/Laterality Comments BREAST REDUCTION PROCEDURE: [place] BREAST REDUCTION CHOLECYSTECTOMY PROCEDURE: [place] LAPAROSCOPY SURG CHOLECYSTECTOMY TUBAL LIGATION PROCEDURE: HISTORICAL TUBAL LIGATION OTHER SURGICAL HISTORY 01/2020 PROCEDURE: ---- OTHER ----; COMMENT: peritoneal dialysis port placement OTHER SURGICAL HISTORY Left PROCEDURE: HISTORY OTHER; COMMENT: [place]. Crespo upper arm fistula placement under general anesthesia. OTHER SURGICAL HISTORY 07/05/2021 PROCEDURE: [place] LAPAROSCOPY W/LYSIS OF ADHESIONS Medical History Medical History Date Comments Lupus nephritis ([facility] V24 , [facility] V28) 06/29/2017 DX:Lupus nephritis ([facility]) Hyperlipidemia 07/07/2017 DX:Hyperlipidemi a Morbid obesity with BMI of 4 0.0-44.9, adult ([facility] V24, [facility] V28) 06/22/2006 DX:Morbid obesity wit h BMI of 40.0-44.9, adult ([facility]) Vitamin D deficiency 07/07/2017 DX:Vitamin D deficiency CHF (congestive heart failur e) ([facility] V24, [facility] V28) 07/07/2017 DX:CHF (congestive heart mikael lure) ([facility]) Nephrotic syndrome 07/07/2017 DX:Nephrotic syndrome Proteinuria 07/07/2017 DX:Proteinuria; COMMENT: Followed [facility] Nephropathy HTN (hypertension) 07/07/2017 DX:HTN (hyper tension); COMMENT: Followed [facility] Nephropathy ESRD (end stage renal diseas e) on dialysis ([facility] V24, [facility] V28) DX:ESRD (end stage renal disease) on dialysis ([facility]); COMMENT: M/W/F dialysis since Nov 2019. Rosario Lupus DX:Lupus History of gastritis 03/10/2022 DX:History [...] of 2) 2022 COVID-19 Vaccine (3 - 2023-2 5 season) 2023 07/05/2020, 05/24/2020 Influenza Vaccine (Season Ended) 2024 HIB Vaccines Aged Out No longer eligi [...] age to complete this topic Meningococcal B Vaccine Aged Out No l onger eligible based on patient's age to complete this topic RSV Immunization Patients Under 20 months Aged Out No longer eligible b ased on patient's age to complete this topic Varicella Vaccines Aged Out No longer eligible based on patient's age to complete this topic Advance Directives Documents on File Type Date Recorded 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
--- OUTSIDE RECORDS SUMMARY | 2024-08-22 08:43 | XMS_ITS | Clinical Summary ---
Author Organization [facility] Address [address] [place] [address] Care Team Providers Care Mechanical Meter Tester Name Role Phone Lore Vieira Primary Care Provider Allergies Active Allergy Reactions Criticality Noted Date Comments Lisinopril 06/14/2020 Medications Medication Sig Dispensed Refills Start Date End Date Status B [id number] ACID PO Take by mouth. 0 Active [...] age to complete this topic Care Teams Mechanical Meter Tester Relationship Specialty Start Date End Date Lore Vieira [address] [place] [address] PCP - General Internal Medicine 06/14/20
--- OUTSIDE RECORDS SUMMARY | 2024-08-22 08:43 | XMS_ITS | Encounter Summary ---
Author Organization [facility], Address [address] [place] [address] Phone Care Team Providers Care Crust Sorter Name Role Phone Unavailable Primary Care Provider Unavailabl e Encounter Details Date Type Department Care Team (Late st Contact Info) Description 05/02/2023 Documentation Only [facility] Dr Gu[address] [place] [phone] Radu Arevalo MD [address] [place] [address] [place] [phone] Social History Tobacco Use Types Packs/Day Years [...]
[2024-08-22 09:00] LABS: MANUAL DIFF FLAG NO
[2024-08-22 09:22] LABS: Basophils Percent Auto 0.5 % (0-2); Eosinophils Absolute Auto 0.1 X10*3/uL (0.0-0.4); Eosinophils Percent Auto 2.3 % (0-4); Hematocrit 44.2 % (37.0-47.0); Hemoglobin 13.7 g/dl (12.0-16.0); Imm Gran Abs Auto 0.02 X10*3/uL (0.00-0.03); Imm Gran Pct Auto 0.5 % (0.0-0.4); Lymphocytes Absolute Auto 1.3 X10*3/uL (1.2-4.9); Lymphocytes Percent Auto 33.3 % (20-40); Mean Corpuscular Hemoglobin 29.5 pg (27.0-33.0); Mean Corpuscular Volume 95.1 fL (80.0-98.0); Mean Platelet Volume 8.6 fL (9.4-12.3); Monocytes Absolute Auto 0.4 X10*3/uL (0.1-1.2); Monocytes Percent Auto 10.5 % (2-11); Neutrophils Absolute Auto 2.1 x10*3/uL (2.0-8.3); Neutrophils Percent Auto 52.9 % (45-73); Platelet Count 201 X10*3/uL (160-400); Red Blood Count 4.65 X10*6/uL (4.20-5.50); Red Cell Distribution Width 13.1 % (11.0-16.0); White Blood Count 3.9 X10*3/uL (4.8-10.8)
[2024-08-22 10:12] LABS: Alanine Aminotransferase 36 U/L (0-31); Anion Gap 10 (12-20); Aspartate Amino Transferase 25 U/L (5-31); Blood Urea Nitrogen 31 mg/dL (9-16); Calcium 9.9 mg/dL (8.4-10.2); Carbon Dioxide 24 mmol/L (22-29); Chloride 113 mmol/L (96-108); Estimated Glomerular Filt Rate 46; Magnesium 1.6 mg/dL (1.6-2.6); Phosphorus 2.6 mg/dL (2.7-4.5); Potassium 4.8 mmol/L (3.3-5.1); Sodium 142 mmol/L (135-145)
[2024-08-22 10:30] LABS: Parathyroid Hormone Intact 169.3 pg/mL (8.7-77.1)
[2024-08-22 10:42] LABS: Vitamin D 25-OH Total 21.1 ng/mL (>30)
[2024-08-23 08:49] LABS: Tacrolimus Prograf 10.9 mcg/L
== END 2024-08-22 08:39 | disposition home or self-care (01) ==
LOC: HO.LAB 08:38
PROVIDERS: Visit Provider Internal Medicine Nephrology
DX: N25.81 Secondary hyperparathyroidism of renal origin (principal); M32.9 Systemic lupus erythematosus, unspecified; Z94.0 Kidney transplant status; I10 Essential (primary) hypertension
CPT/HCPCS: 36415; 80051; 80197; 82306; 82310; 82565; 83735; 83970; 84100; 84450; 84460; 84520; 85025

== ENCOUNTER 2024-08-25 15:28 | Outpatient (AMB) | payer OTHER, SELFPAY ==
--- OUTSIDE RECORDS SUMMARY | 2024-08-25 15:55 | XMS_ITS | Clinical Summary ---
Author Organization [facility] Address [address] [place] [address] Care Team Providers Care Supply Chain Assistant Name Role Phone Lore Vieira MD Primary Care Provider [phone] Surgical History Surgery Date Site/Laterality Comments BREAST REDUCTION PROCEDURE: [place] BREAST REDUCTION CHOLECYSTECTOMY PROCEDURE: [place] LAPAROSCOPY SURG CHOLECYSTECTOMY TUBAL LIGATION PROCEDURE: HISTORICAL TUBAL LIGATION OTHER SURGICAL HISTORY 01/2020 PROCEDURE: ---- OTHER ----; COMMENT: peritoneal dialysis port placement OTHER SURGICAL HISTORY Left PROCEDURE: HISTORY OTHER; COMMENT: [place]. Crespo upper arm fistula placement under general anesthesia. OTHER SURGICAL HISTORY 07/05/2021 PROCEDURE: [place] LAPAROSCOPY W/LYSIS OF ADHESIONS Medical History Medical History Date Comments Lupus nephritis ([facility] , [facility] V28) 06/29/2017 DX:Lupus nephritis ([facility] Hyperlipidemia 07/07/2017 DX:Hyperlipidemi a Morbid obesity with BMI of 4 0.0-44.9, adult ([facility] V24, [facility] V28) 06/22/2006 DX:Morbid obesity wit h BMI of 40.0-44.9, adult ([facility]) Vitamin D deficiency 07/07/2017 DX:Vitamin D deficiency CHF (congestive heart failur e) ([facility] V24, [facility] V28) 07/07/2017 DX:CHF (congestive heart mikael lure) ([facility]) Nephrotic syndrome 07/07/2017 DX:Nephrotic syndrome Proteinuria 07/07/2017 DX:Proteinuria; COMMENT: Followed [facility] Nephropathy HTN (hypertension) 07/07/2017 DX:HTN (hyper tension); COMMENT: Followed [facility] Nephropathy ESRD (end stage renal diseas e) on dialysis ([facility] V24, [facility] V28) DX:ESRD (end stage renal disease) on dialysis ([facility]); COMMENT: M/W/F dialysis since Nov 2019. 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
--- OUTSIDE RECORDS SUMMARY | 2024-08-25 15:55 | XMS_ITS | Encounter Summary ---
Author Organization [facility], Address [address] [place] [address] Phone Care Team Providers Care Disk Recordist Name Role Phone Unavailable Primary Care Provider Unavailabl e Encounter Details Date Type Department Care Team (Late st Contact Info) Description 05/02/2023 Documentation Only [facility] Dr Guillermina [address] [place] [phone] Radu Arevalo MD [address] [place] [address] [place] [phone] Social History Tobacco Use Types Packs/Day Years [...]
--- OUTSIDE RECORDS SUMMARY | 2024-08-25 15:55 | XMS_ITS | Clinical Summary ---
Author Organization [facility] Address [address] [place] [address] Care Team Providers Care Member Services Representative Name Role Phone Lore Vieira Primary Care Provider Allergies Active Allergy Reactions Criticality Noted Date Comments Lisinopril 06/14/2020 Medications Medication Sig Dispensed Refills Start Date End Date Status B [id number] ACID PO Take by mouth. 0 Active [...] age to complete this topic Care Teams Member Services Representative Relationship Specialty Start Date End Date Lore Vieira [address] [place] [address] PCP - General Internal Medicine 06/14/20
--- OUTSIDE RECORDS SUMMARY | 2024-08-25 15:55 | XMS_ITS | Clinical Summary ---
Author Organization [facility] Address [address] [place] [address] Phone Care Team Providers Care Forensic Nurse Name Role Phone Unavailable Primary Care Provider [...] Discontinued 10/21/2017 Insurance Care Dual SNP ([id number]) [facility] Care Dual SNP ([id number]) RAFAEL GALLARDO [id number] Medicare [place]
--- NOTE | 2024-08-25 15:56 | HO.NEPHOV_ITS ---
Vital Signs 08/25/24 15:59 Height 5 ft 2 in Weight 184 lb 4 oz BMI 33.7 BP 158/110 H Blood Pressure Location Rt brachial Position Sitting Intake Visit Reasons: 2mon Transplant follow-up w/labs Final Finisher Required: No Accompanied by: Self / Same As Patient Allergies gabapentin Allergy (Mild, Verified 08/25/24 15:58) Unknown lisinopril Allergy (Mild, Verified 08/25/24 15:58) Unknown losartan Allergy (Mild, Verified 08/25/24 15:58) Unknown HPI Comments Details: Nettie was seen in follow-up of her recent renal transplant on 03/19/2023.( donor). She had PRA of 65. She was induced with Campath. She had delayed graft function. She required for dialysis treatments post transplant. 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 She had been getting immunosuppression with tacrolimus and mycophenolate. Her tacrolimus dosage has been adjusted with the help of ketoconazole. Her baseline serum creatinine has been around 1.2 to 1.5 mg/dL. CMV status of the donor was negative and recipient was positive. EBV status of donor and recipient were positive. Hepatitis B core antibody was negative for donor and recipient. Hepatitis C antibody was negative for donor and recipient. She had been BK virus negative by PCR as of 06/16/23. Prospera was completed on 06/26/2023. There is no history of any rejection to date. Her donor specific antibody has been negative. She had been getting envarsus 11mg and myfortic 720/720mg. Prophylaxis therapy included atovoquone daily ( d/c date 09/18/23 ) and valcyte (d/c date 09/18/23). She had 2 readmissions post transplant (05/03/23 for htn urgency & on 05/14/23 hyperkalemia). She currently feels very well and did not have any new complaints at the time of this office visit [facility] Medical History (Updated 07/16/23 @ 06:20 by Jone Gallego MD) Anemia Seizures Hypertension Lupus History of end stage renal disease Surgical History History of kidney transplant Social History Alcohol intake: never Patient Tobacco Use Status: Never used Tobacco Review of Systems Const All systems reviewed & are unremarkable except as noted in HPI and below Physical Exam Vital Signs: Last Vital Signs BP 158/110 H 08/25/24 15:59 BMI result Body Mass Index 33.7 Const General: comfortable and no acute distress Orientation/consciousness: patient oriented x3 HEENT Head: Yes normocephalic Mouth: Normal oral and palatal mucosa present Eyes EOM: EOMs intact bilaterally Neck Neck: Yes supple Resp Auscultation: clear to auscultation bilaterally Cardio Jugular venous distension: no JVD Rate: regular rate GI Palpation (GI): Soft to palpation Auscultation: normal bowel sounds General: Yes no CVA tenderness Back/Spine/Pelvis Back: no CVA tenderness Skin General skin exam: no rashes or lesions noted Neuro General: patient oriented x3 and moves all extremities Extrem General: Yes no pedal edema Results Reviewed Nephrology Results: Hgb 13.7 g/dl (12.0-16.0) 08/22/24 WBC 3.9 X10*3/uL (4.8-10.8) L 08/22/24 Plt Count 201 X10*3/uL (160-400) 08/22/24 Sodium 142 mmol/L (135-145) 08/22/24 Potassium 4.8 mmol/L (3.3-5.1) 08/22/24 Chloride 113 mmol/L (96-108) H 08/22/24 Carbon Dioxide 24 mmol/L (22-29) 08/22/24 BUN 31 mg/dL (9-16) H 08/22/24 Creatinine 1.22 mg/dL (0.5-1.4) 08/22/24 Calcium 9.9 mg/dL (8.4-10.2) 08/22/24 Phosphorus 2.6 mg/dL (2.7-4.5) L 08/22/24 PTH Intact 169.3 pg/mL (8.7-77.1) H 08/22/24 Urine Creatinine 110.09 mg/dL 04/22/24 Protein/Creatinin Ratio TNP 04/22/24 Assessment & Plan Assessment & Plan (1) History of kidney transplant: Code(s): Z94.0 - Kidney transplant status Category: Surgical (2) Hypertension: Code(s): I10 - Essential (primary) hypertension Category: Medical Qualifiers: Hypertension type: primary hypertension Qualified Code(s): I10 - Essential (primary) hypertension (3) Secondary hyperparathyroidism (of renal origin): Code(s): N25.81 - Secondary hyperparathyroidism of renal origin Category: Medical Plan 1. Allograft function: stable graft function; DSA pending 2. Immunosuppression: C/W with current medications 3. BP and volume status: stable; no changes 4. Metabolic parameters: potassium stable with diet changes; on magnesium and will follow up labs 5. Hematologic parameters: anemia stable; no need for intervention; follow for now 6. Prophylaxis/infection: Prophylaxis therapy included atovoquone daily ( d/dustin date 09/18/23 ) and valcyte (d/dustin date 09/18/23) Orders: Orders Tacrolimus Prograf 2 Months I10 - Essential (primary) hypertension, N25.81 - Secondary hyperparathyroidism of renal origin, Z94.0 - Kidney transplant status Aspartate Amino Transferase 2 Months I10 - Essential (primary) hypertension, N25.81 - Secondary hyperparathyroidism of renal origin, Z94.0 - Kidney transplant status Albumin Level 2 Months I10 - Essential (primary) hypertension, N25.81 - Secondary hyperparathyroidism of renal origin, Z94.0 - Kidney transplant status Tacrolimus Prograf 1 Month Z94.0 - Kidney transplant status Complete Blood Count Auto Diff 2 Months I10 - Essential (primary) hypertension, N25.81 - Secondary hyperparathyroidism of renal origin, Z94.0 - Kidney transplant status Alanine Aminotransferase 2 Months I10 - Essential (primary) hypertension, N25.81 - Secondary hyperparathyroidism of renal origin, Z94.0 - Kidney transplant status Creatinine 2 Months I10 - Essential (primary) hypertension, N25.81 - Secondary hyperparathyroidism of renal origin, Z94.0 - Kidney transplant status Blood Urea Nitrogen 2 Months I10 - Essential (primary) hypertension, N25.81 - Secondary hyperparathyroidism of renal origin, Z94.0 - Kidney transplant status Electrolytes 2 Months I10 - Essential (primary) hypertension, N25.81 - Seconda ry hyperparathyroidism of renal origin, Z94.0 - Kidney transplant status Calcium 2 Months I10 - Essential (primary) hypertension, N25.81 - Secondary hyperparathyroidism of renal origin, Z94.0 - Kidney transplant status Phosphorus 2 Months I10 - Essential (primary) hypertension, N25.81 - Secondary hyperparathyroidism of renal origin, Z94.0 - Kidney transplant status Magnesium 2 Months I10 - Essential (primary) hypertension, N25.81 - Secondary hyperparathyroidism of renal origin, Z94.0 - Kidney transplant status Coding Level of Care Code Est Pt Level 4 (28257) Diagnoses History of kidney transplant Z94.0 Primary hypertension I10 Hypertension type: primary hypertension Secondary hyperparathyroidism (of renal origin) N25.81
[2024-08-25 15:59] VITALS: BP 158/110; BMI 33.7
== END 2024-08-25 16:18 | disposition home or self-care (01) ==
LOC: HO.HKAS 15:28
PROVIDERS: PCP Internal Medicine; Visit Provider Internal Medicine Nephrology
DX: Z94.0 Kidney transplant status (principal); I10 Essential (primary) hypertension; N25.81 Secondary hyperparathyroidism of renal origin
CPT/HCPCS: 99214

== ENCOUNTER → 2024-08-25 15:28 | Outpatient (BNVA) | payer OTHER, SELFPAY | PROVIDERS: PCP Internal Medicine; Visit Provider Internal Medicine Nephrology | DX: I10 Essential (primary) hypertension (principal); N25.81 Secondary hyperparathyroidism of renal origin; Z94.0 Kidney transplant status | CPT/HCPCS: 99212 ==

== ENCOUNTER 2024-10-25 07:40 | Outpatient (REF) | payer OTHER, SELFPAY ==
--- OUTSIDE RECORDS SUMMARY | 2024-10-25 07:44 | XMS_ITS | Clinical Summary ---
Author Organization [facility] Address [address] [place] [address] Care Team Providers Care Financial Reserve Clerk Name Role Phone Jone Gallego MD Primary Care Provider [phone] Encounters Date Type Department Care Team Description 08/22/2024 11:00 PM EDT Lab [facility] Transplant Program & [facility] [address] [place] [id number] System, Provider Not In Complication of transplanted kidney, unspecified complication (Primary Dx) from Last 3 Months Social History Tobacco Use Types Packs/Day Years Used Date Smoking Tobacco: Never Assessed Comments Unknown Sex and Gender Information Value Date Recorded Sex Assigned at Female 09/08/2024 2:16 PM EDT Legal Sex Female 11:48 AM EDT Gender Identity Female 09/08/2024 2:16 PM EDT Sexual Orientation Heterosexual (straight) 09/08 2:16 PM EDT Plan of Treatment Health Maintenance Due Date Last Done Comments Hepatitis C Virus Screening 1972 HIV Screening 1985 DTaP/Tdap/Td Vaccines (1 - Tdap) 1991 Hepatitis B Vaccines (1 of 3 - 19+ 3-dose series) 1991 Pap Smear (Ages 21-65) 1993 Mammogram 2012 Colonoscopy 2017 Pneumococcal Vaccines 50+ (1 of 1 - PCV) 2022 Zoster (Shingles) Vaccine (1 of 2) 2022 COVID-19 Vaccine (4 - 2023- season) 2023 03/22/2021, 07/05/2020, 05/24/2020 Influenza Vaccine 11/11/2024 Insurance MEDICARE PART A & B MISC MGD MEDICARE OUT OF NETWORK Care Teams Financial Reserve Clerk Relationship Specialty Start Date End Date Jone Gallego MD [address] [place] [address] [place] [address] PCP - General Nephrology 08/22/24
--- OUTSIDE RECORDS SUMMARY | 2024-10-25 07:44 | XMS_ITS | Clinical Summary ---
Author Organization [facility] Address [address] [place] [address] Care Team Providers Care Drawing Tender Name Role Phone Lore Vieira MD Primary Care Provider [phone] Surgical History Surgery Date Site/Laterality Comments BREAST REDUCTION PROCEDURE: PA BREAST REDUCTION CHOLECYSTECTOMY PROCEDURE: PA LAPAROSCOPY SURG CHOLECYSTECTOMY TUBAL LIGATION PROCEDURE: HISTORICAL TUBAL LIGATION OTHER SURGICAL HISTORY 01/2020 PROCEDURE: ---- OTHER ----; COMMENT: peritoneal dialysis port placement OTHER SURGICAL HISTORY Left PROCEDURE: HISTORY OTHER; COMMENT: McPartland. Crespo upper arm fistula placement under general anesthesia. OTHER SURGICAL HISTORY 07/05/2021 PROCEDURE: PA LAPAROSCOPY W/LYSIS OF ADHESIONS Medical History Medical History Date Comments Lupus nephritis ([facility] [place]24 , [facility] V28) 06/29/2017 DX:Lupus nephritis ([facility]) Hyperlipidemia 07/07/2017 DX:Hyperlipidemi a Morbid obesity with BMI of 4 0.0-44.9, adult ([facility] V24, [facility] V28) 06/22/2006 DX:Morbid obesity wit h BMI of 40.0-44.9, adult ([facility]) Vitamin D deficiency 07/07/2017 DX:Vitamin D deficiency CHF (congestive heart failur e) ([facility] V24, [facility] V28) 07/07/2017 DX:CHF (congestive heart mikael lure) ([facility]) Nephrotic syndrome 07/07/2017 DX:Nephrotic syndrome Proteinuria 07/07/2017 DX:Proteinuria; COMMENT: Followed [facility] Nephropathy HTN (hypertension) 07/07/2017 DX:HTN (hyper tension); COMMENT: Followed [facility] Nephropathy ESRD (end stage renal diseas e) on dialysis ([facility] V24, [facility] V28) DX:ESRD (end stage renal disease) on dialysis ([facility]); COMMENT: M/W/F dialysis since Nov 2019. 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
--- OUTSIDE RECORDS SUMMARY | 2024-10-25 07:45 | XMS_ITS ---
Author Name [facility] Organization Unknown Problems Problem Status Onset Date Problem Type Date of Resoluti on Source Complication of transplanted kidney, unspecified complication active EncounterDiagnosisAct CCT Encounters Encounter Type Encounter Reason Primary Diagnosis Location Date Ambulatory Unspecified complication of kidney transplant Unspecified complication of kidney transplant [place] 09/19/2024 Care Team Organization Name Specialty Phone Email Start Date End Da te [facility] [employer] JINNY GONZALEZ Primary Care 09/19/2024 [facility] [employer] JINNY GONZALEZ Primary Care 09/08/2024
--- OUTSIDE RECORDS SUMMARY | 2024-10-25 07:45 | XMS_ITS | Encounter Summary ---
Author Organization [facility], Address [address] [place] [address] Phone Care Team Providers Care Butting Saw Operator Name Role Phone Unavailable Primary Care Provider Unavailabl e Encounter Details Date Type Department Care Team (Late st Contact Info) Description 05/02/2023 Documentation Only [facility] Dr [address] [place] [phone] Radu Arevalo MD [address] [place] [address] [place] [phone] Social History Tobacco Use Types Packs/Day Years [...]
--- OUTSIDE RECORDS SUMMARY | 2024-10-25 07:45 | XMS_ITS | Clinical Summary ---
Author Organization [facility] Address [address] [place] [address] Care Team Providers Care Binding Cementer French Cord Name Role Phone Lore Vieira Primary Care Provider Allergies Active Allergy Reactions Criticality Noted Date Comments Lisinopril 06/14/2020 Medications Medication Sig Dispensed Refills Start Date End Date Status B [id number] ACID PO Take by mouth. 0 Active [...] 73 06/14/2020 3:16 PM EST Temperature 37.4 C (99.3 F) 06/14/2020 3:16 PM EST Respiratory Rate - - Oxygen Saturation - [...] 5 season) 2023 05/17/2020 Influenza Vaccine (#1) 2024 Pneumococcal Vaccine Aged Out 10/21/2017 No long er eligible based on patient's age to complete this topic RSV Ped < 20 months Aged Out No longe r eligible based on patient's age to complete this topic Care Teams Binding Cementer French Cord Relationship Specialty Start Date End Date Lore Vieira [address] [place] [address] PCP - General Internal Medicine 06/14/20
[2024-10-25 07:58] LABS: MANUAL DIFF FLAG NO
[2024-10-25 08:51] LABS: Hematocrit 41.4 % (37.0-47.0); Hemoglobin 13.3 g/dl (12.0-16.0); Imm Gran Abs Auto 0.01 X10*3/uL (0.00-0.03); Imm Gran Pct Auto 0.3 % (0.0-0.4); Lymphocytes Absolute Auto 1.3 X10*3/uL (1.2-4.9); Mean Corpuscular HGB Conc 32.1 g/dl (31.0-35.0); Mean Corpuscular Hemoglobin 29.6 pg (27.0-33.0); Mean Corpuscular Volume 92.2 fL (80.0-98.0); NRBC Abs Auto 0.000 X10*3/uL (0.0-0.012); NRBC Pct Auto 0.0 /100WBC (0.0-0.2); Platelet Count 214 X10*3/uL (160-400); Red Blood Count 4.49 X10*6/uL (4.20-5.50); White Blood Count 3.8 X10*3/uL (4.8-10.8)
[2024-10-25 09:16] LABS: Alanine Aminotransferase 37 U/L (0-31); Albumin Level 4.5 g/dL (3.5-5.0); Anion Gap 11 (12-20); Aspartate Amino Transferase 29 U/L (5-31); Blood Urea Nitrogen 31 mg/dL (9-16); Calcium 9.8 mg/dL (8.4-10.2); Carbon Dioxide 24 mmol/L (22-29); Chloride 113 mmol/L (96-108); Estimated Glomerular Filt Rate 35; Magnesium 1.7 mg/dL (1.6-2.6); Potassium 4.5 mmol/L (3.3-5.1); Sodium 143 mmol/L (135-145)
[2024-10-26 09:23] LABS: Tacrolimus Prograf 7.6 mcg/L
== END 2024-10-25 07:41 | disposition home or self-care (01) ==
LOC: HO.LAB 07:40
PROVIDERS: Visit Provider Internal Medicine Nephrology
DX: Z94.0 Kidney transplant status (principal); I10 Essential (primary) hypertension; N25.81 Secondary hyperparathyroidism of renal origin
CPT/HCPCS: 36415; 80051; 80197; 82040; 82310; 82565; 83735; 84100; 84450; 84460; 84520; 85025

== ENCOUNTER 2024-10-27 15:10 | Outpatient (AMB) | payer OTHER, SELFPAY ==
--- NOTE | 2024-10-27 15:30 | HO.NEPHOV ---
Vital Signs 10/27/24 15:38 Height 5 ft 2 in Weight 186 lb 8 oz BMI 34.1 BP 130/80 Blood Pressure Location Rt brachial Position Sitting Pulse 80 Pulse Source Pulse Oximeter Pulse Oximetry (%) 99 Oxygen Delivery Method Room Air Intake Visit Reasons: 2mon Transplant f/u w/labs-Conf Allergies gabapentin Allergy (Mild, Verified 10/27/24 15:40) Unknown lisinopril Allergy (Mild, Verified 10/27/24 15:40) Unknown losartan Allergy (Mild, Verified 10/27/24 15:40) Unknown HPI Comments Details: Nettie was seen in follow-up of her recent renal transplant on 03/19/2023.( donor). She had PRA of 65. She was induced with Campath. She had delayed graft function. She required for dialysis treatments post transplant. 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 She had been getting immunosuppression with tacrolimus and mycophenolate. Her tacrolimus dosage has been adjusted with the help of ketoconazole. Her baseline serum creatinine has been around 1.2 to 1.5 mg/dL. CMV status of the donor was negative and recipient was positive. EBV status of donor and recipient were positive. Hepatitis B core antibody was negative for donor and recipient. Hepatitis C antibody was negative for donor and recipient. She had been BK virus negative by PCR as of 06/16/23. Prospera was completed on 06/26/2023. There is no history of any rejection to date. Her donor specific antibody has been negative. She had been getting envarsus 11mg and myfortic 720/720mg. Prophylaxis therapy included atovoquone daily ( d/c date 09/18/23 ) and valcyte (d/c date 09/18/23). She had 2 readmissions post transplant (05/03/23 for htn urgency & on 05/14/23 hyperkalemia). Her serum creatinine has gone up a bit. She has been having RUE small joint stiffness. She currently feels very well and did not have any new complaints at the time of this office visit [facility] Medical History (Updated 07/16/23 @ 06:20 by Jone Gallego MD) Anemia Seizures Hypertension Lupus History of end stage renal disease Surgical History History of kidney transplant Social History Alcohol intake: never Patient Tobacco Use Status: Never used Tobacco Review of Systems Const All systems reviewed & are unremarkable except as noted in HPI and below Physical Exam Vital Signs: Last Vital Signs Pulse 80 10/27/24 15:38 BP 130/80 10/27/24 15:38 Pulse Ox 99 10/27/24 15:38 Oxygen Delivery Method Room Air 10/27/24 15:38 BMI result Body Mass Index 34.1 Const General: comfortable and no acute distress Orientation/consciousness: patient oriented x3 HEENT Head: Yes normocephalic Mouth: Normal oral and palatal mucosa present Eyes EOM: EOMs intact bilaterally Neck Neck: Yes supple Resp Auscultation: clear to auscultation bilaterally Cardio Jugular venous distension: no JVD Rate: regular rate GI Palpation (GI): Soft to palpation Auscultation: normal bowel sounds General: Yes no CVA tenderness Back/Spine/Pelvis Back: no CVA tenderness Skin General skin exam: no rashes or lesions noted Neuro General: patient oriented x3 and moves all extremities Extrem General: Yes no pedal edema Results Reviewed Nephrology Results: Hgb, (12.0-16.0) 13.3 g/dl 10/25/24 WBC, (4.8-10.8) 3.8 X10*3/uL L 10/25/24 Plt Count, (160-400) 214 X10*3/uL 10/25/24 Sodium, (135-145) 143 mmol/L 10/25/24 Potassium, (3.3-5.1) 4.5 mmol/L 10/25/24 Chloride, (96-108) 113 mmol/L H 10/25/24 Carbon Dioxide, (22-29) 24 mmol/L 10/25/24 BUN, (9-16) 31 mg/dL H 10/25/24 Creatinine, (0.5-1.4) 1.57 mg/dL H 10/25/24 Calcium, (8.4-10.2) 9.8 mg/dL 10/25/24 Phosphorus, (2.7-4.5) 2.9 mg/dL 10/25/24 PTH Intact, (8.7-77.1) 169.3 pg/mL H 08/22/24 Urine Creatinine 110.09 mg/dL 04/22/24 Protein/Creatinin Ratio TNP 04/22/24 Assessment & Plan Assessment & Plan (1) Hypertension: Code(s): I10 - Essential (primary) hypertension Category: Medical Qualifiers: Hypertension type: primary hypertension Qualified Code(s): I10 - Essential (primary) hypertension (2) History of kidney transplant: Code(s): Z94.0 - Kidney transplant status Category: Surgical (3) Lupus: Code(s): M32.9 - Systemic lupus erythematosus, unspecified Category: Medical Plan 1. Allograft function: Serum creatinine marginally up; DSA negative; May need USS/ biopsy if serum creatinine does not settle to baseline 2. Immunosuppression: C/W with current medications( may have to increase mycophenolate suzy if lupus activity present) 3. BP and volume status: stable; no changes 4. Metabolic parameters: will follow up labs 5. Hematologic parameters: anemia stable; no need for intervention; follow for now 6. Prophylaxis/infection: Prophylaxis therapy included atovoquone daily ( d/dustin date 09/18/23 ) and valcyte (d/dustin date 09/18/23) Orders: Orders Protein Creatinine Ratio, Ur 3 Weeks I10 - Essential (primary) hypertension, Z94.0 - Kidney transplant status Electrolytes 3 Weeks I10 - Essential (primary) hypertension, Z94.0 - Kidney transplant status Tacrolimus Prograf 3 Weeks I10 - Essential (primary) hypertension, Z94.0 - Kidney transplant status Anti DNA DS Antibody 3 Weeks M32.9 - Systemic lupus erythematosus, unspecified Uric Acid 3 Weeks I10 - Essential (primary) hypertension, Z94.0 - Kidney transplant status UA and rflx microscopic 3 Weeks I10 - Essential (primary) hypertension, Z94.0 - Kidney transplant status Creatinine 3 Weeks I10 - Essential (primary) hypertension, Z94.0 - Kidney transplant status Blood Urea Nitrogen 3 Weeks I10 - Essential (primary) hypertension, Z94.0 - Kidney transplant status Calcium 3 Weeks I10 - Essential (primary) hypertension, Z94.0 - Kidney transplant status Phosphorus 3 Weeks I10 - Essential (primary) hypertension, Z94.0 - Kidney transplant status Magnesium 3 Weeks I10 - Essential (primary) hypertension, Z94.0 - Kidney transplant status Complement C3 3 Weeks M32.9 - Systemic lupus erythematosus, unspecified Complement C4 3 Weeks M32.9 - Systemic lupus erythematosus, unspecified Coding Level of Care Code Est Pt Level 4 (53271) Diagnoses Primary hypertension I10 Hypertension type: primary hypertension History of kidney transplant Z94.0 Lupus M32.9
[2024-10-27 15:38] VITALS: BP 130/80; PULSE 80; O2SAT 99; BMI 34.1
--- OUTSIDE RECORDS SUMMARY | 2024-10-27 15:54 | XMS_ITS | Clinical Summary ---
Author Organization [facility] Address [address] [place] [address] Care Team Providers Care Counter Dish Carrier Name Role Phone Jone Gallego MD Primary Care Provider [phone] Encounters Date Type Department Care Team Description 08/22/2024 11:00 PM EDT Lab [facility] Transplant Program & [facility] [address] [place] [phone] System, Provider Not In Complication of transplanted [...] MGD MEDICARE OUT OF NETWORK Care Teams Counter Dish Carrier Relationship Specialty Start Date End Date Jone Gallego MD [address] [place] [address] [place] [address] PCP - General Nephrology 08/22/24
--- OUTSIDE RECORDS SUMMARY | 2024-10-27 15:54 | XMS_ITS | Clinical Summary ---
Author Organization [facility] Address [address] [place] [address] Care Team Providers Care Computer Aide Name Role Phone Lore Vieira MD Primary Care Provider [phone] Surgical History Surgery Date Site/Laterality Comments BREAST REDUCTION PROCEDURE: CO BREAST REDUCTION CHOLECYSTECTOMY PROCEDURE: CO LAPAROSCOPY SURG CHOLECYSTECTOMY TUBAL LIGATION PROCEDURE: HISTORICAL TUBAL LIGATION OTHER SURGICAL HISTORY 01/2020 PROCEDURE: ---- OTHER ----; COMMENT: peritoneal dialysis port placement OTHER SURGICAL HISTORY Left PROCEDURE: HISTORY OTHER; COMMENT: [facility]Partland. Crespo upper arm fistula placement under general anesthesia. OTHER SURGICAL HISTORY 07/05/2021 PROCEDURE: CO LAPAROSCOPY W/LYSIS OF ADHESIONS Medical History Medical History Date Comments Lupus [place] [place] [facility] [place]28) 06/29/2017 DX:Lupus nephritis ([facility]) Hyperlipidemia 07/07/2017 DX:Hyperlipidemi a Morbid obesity with BMI of 4 0.0-44.9, adult ([facility] V24, [facility] [place]28) 06/22/2006 DX:Morbid obesity wit h BMI of 40.0-44.9, adult ([facility]) Vitamin D deficiency 07/07/2017 DX:Vitamin D deficiency CHF (congestive heart failur e) ([facility] [place], [facility] V28) 07/07/2017 DX:CHF (congestive heart mikael lure) ([facility]) Nephrotic syndrome 07/07/2017 DX:Nephrotic syndrome Proteinuria 07/07/2017 DX:Proteinuria; COMMENT: Followed [facility] Nephropathy HTN (hypertension) 07/07/2017 DX:HTN (hyper tension); COMMENT: Followed [facility] Nephropathy ESRD (end stage renal diseas e) on dialysis ([facility] [place] [place]28) DX:ESRD (end stage renal disease) on dialysis ([facility]); COMMENT: M/W/F dialysis since Nov 2019. [...] Documents on File Type Date Recorded Patient Piecer Up Expl anation Health Care Decision (hx) 09/10/2020 [...] (hx) 09/08/2020 AD HOPKINS DIRECTIVE Care Teams Computer Aide Relationship Specialty Start Date End Date Lore Vieira MD PCP - General Internal Medicine 04/30/17
--- OUTSIDE RECORDS SUMMARY | 2024-10-27 15:54 | XMS_ITS | Clinical Summary ---
Author Organization [facility] Address [address] [place] [address] Care Team Providers Care Church Worker Name Role Phone Lore Vieira Primary Care Provider Allergies Active Allergy Reactions Criticality Noted Date Comments Lisinopril 06/14/2020 Medications Medication Sig Dispensed Refills Start Date End Date Status B [id number] ACID PO Take by mouth. 0 Active [...] age to complete this topic Care Teams Church Worker Relationship Specialty Start Date End Date Lore Vieira [address] [place] [address] PCP - General Internal Medicine 06/14/20
--- OUTSIDE RECORDS SUMMARY | 2024-10-27 15:54 | XMS_ITS | Encounter Summary ---
Author Organization [facility], Address [address] [place] [address] Phone Care Team Providers Care Mine Superintendent Name Role Phone Unavailable Primary Care Provider Unavailabl e Encounter Details Date Type Department Care Team (Late st Contact Info) Description 05/02/2023 Documentation Only [facility] Dr [address] [place] [phone] Radu Arevalo MD [address] [place] [address] [place] [phone] Social History Tobacco Use Types Packs/Day Years [...]
== END 2024-10-27 16:04 | disposition home or self-care (01) ==
LOC: HO.HKAS 15:10
PROVIDERS: PCP Internal Medicine; Visit Provider Internal Medicine Nephrology
DX: I10 Essential (primary) hypertension (principal); Z94.0 Kidney transplant status; M32.9 Systemic lupus erythematosus, unspecified
CPT/HCPCS: 99214

== ENCOUNTER → 2024-10-27 15:10 | Outpatient (BNVA) | payer OTHER, SELFPAY | PROVIDERS: PCP Internal Medicine; Visit Provider Internal Medicine Nephrology | DX: I10 Essential (primary) hypertension (principal); Z94.0 Kidney transplant status | CPT/HCPCS: 99212 ==

== ENCOUNTER 2024-12-17 08:43 | Outpatient (REF) | payer OTHER, SELFPAY ==
--- OUTSIDE RECORDS SUMMARY | 2024-12-17 08:47 | XMS_ITS | Clinical Summary ---
Author Organization [facility] Address [address] [place] [address] Care Team Providers Care Soda Worker Name Role Phone Lore Vieira MD Primary Care Provider [phone] Surgical History Surgery Date Site/Laterality Comments BREAST REDUCTION PROCEDURE: GA BREAST REDUCTION CHOLECYSTECTOMY PROCEDURE: GA LAPAROSCOPY SURG CHOLECYSTECTOMY TUBAL LIGATION PROCEDURE: HISTORICAL TUBAL LIGATION OTHER SURGICAL HISTORY 01/2020 PROCEDURE: ---- OTHER ----; COMMENT: peritoneal dialysis port placement OTHER SURGICAL HISTORY Left PROCEDURE: HISTORY OTHER; COMMENT: McPartland. Crespo upper arm fistula placement under general anesthesia. OTHER SURGICAL HISTORY 07/05/2021 PROCEDURE: GA LAPAROSCOPY W/LYSIS OF ADHESIONS Medical History Medical History Date Comments Lupus nephritis [place] [place] [facility] [place]) 06/29/2017 DX:Lupus nephritis ([facility]) Hyperlipidemia 07/07/2017 DX:Hyperlipidemi a Morbid obesity with BMI of 4 0.0-44.9, adult ([facility], [facility]) 06/22/2006 DX:Morbid obesity wit h BMI of 40.0-44.9, adult ([facility]) Vitamin D deficiency 07/07/2017 DX:Vitamin D deficiency CHF (congestive heart failur e) ([facility] [place], [facility] V28) 07/07/2017 DX:CHF (congestive heart mikael lure) ([facility]) Nephrotic syndrome 07/07/2017 DX:Nephrotic syndrome Proteinuria 07/07/2017 DX:Proteinuria; COMMENT: Followed [facility] Nephropathy HTN (hypertension) 07/07/2017 DX:HTN (hyper tension); COMMENT: Followed [facility] Nephropathy ESRD (end stage renal diseas e) on dialysis ([facility] [place], [facility]) DX:ESRD (end stage renal disease) on dialysis ([facility]); COMMENT: M/W/F dialysis since Nov 2019. Rosario [...] Panel) 03/16/2022 Colorectal Cancer Screening: Colonoscopy 03/16/2022 HIV Screening 03/16/2022 Hepatitis C Screening 03/16/2022 Social Influencers of Health Screening 03/16/2022 Hypertension/CHF/CAD Annual BMP Blood Test 03/23/2022 DTaP,Tdap,and Td Vaccines (3 - Td or Tdap) 04/28/2022 04/28/2012, 06/22/2006 Zoster Vaccines (1 of 2) 2022 Depression Screening 04/13/2024 COVID-19 Vaccine (3 - 2024-2 6 season) 2024 07/05/2020, 05/24/2020 Influenza Vaccine (#1) 2024 HIB [...] Documents on File Type Date Recorded Patient Magistrate Judge Expl anation Health Care Decision (hx) 09/10/2020 [...] DIRECTIVE Health Care Decision (hx) 09/10/2020 AD HOPKISN DIRECTIVE Health Care Decision (hx) 09/10/2020 AD [...] (hx) 09/08/2020 AD HOPKINS DIRECTIVE Care Teams Soda Worker Relationship Specialty Start Date End Date Lore Vieira MD PCP - General Internal Medicine 04/30/17
--- OUTSIDE RECORDS SUMMARY | 2024-12-17 08:47 | XMS_ITS | Clinical Summary ---
Author Organization [facility] Address [address] [place] [address] Care Team Providers Care Special Education Teaching Assistant Name Role Phone Jone Gallego MD Primary Care Provider [phone] Social History Tobacco Use Types Packs/Day Years [...] 11/11/2024 Insurance MEDICARE PART A & B [facility] [place] MEDIC[place] OUT OF NETWORK Care Teams Special Education Teaching Assistant Relationship Specialty Start Date End Date Jone Gallego MD [address] [place] [address] [place] [address] PCP - General Nephrology 08/22/24
--- OUTSIDE RECORDS SUMMARY | 2024-12-17 08:48 | XMS_ITS | Clinical Summary ---
Author Organization [facility] Address [address] [place] [phone] Phone Care Team Providers Care Fire Dispatcher Name Role Phone Lore Vieira MD Primary Care Provider [phone] Paul Lindo MD Unavailable [phone] Social History Tobacco Use Types Packs/Day Years Used Date Smoking Tobacco: Never Assessed Education Answer Date Recorded Are you interested in more education? Not on rené e 08/08/2022 Are you concerned about learning? Not on file 08/08/2022 No 08/08/2022 No 08/08/2022 Digital Access Answer Date Recorded No 09/09/2022 No 09/09/2022 No 09/09/2022 Reliable internet access at home? Not on file 09/09/2022 Device with a working camera? Not on file Comments Unknown Sex and Gender Information Value Date Recorded Sex Assigned at Not on file Legal Sex Female 2:50 PM EDT Gender Identity Not on file Sexual Orientation Not on file Plan of Treatment Not on file Medical Devices Not on file Insurance [facility] [place] [place] [facility] [place] [facility] [place] [address] [facility] [place] [facility] [place] [facility] MEDOP SERVICES [facility] [place] [facility] Tri[employer] [facility] [place] Performance Indicator ALLANCE [place] Performance Indicator ALLANCE [place] CITYPreventes.frCAP[facility] [place] EcoDomusCAPITAL [facility] [place] [employer] [place] [employer] [address] [place] [address] [employer] [facility] [place] [facility] [place] Member Subscriber Plan / Payer (Ef fective 2019-Present) Name:Nettie La Relation to Subscriber:Self Name:Nettie La Payer ID:[id number] Group ID:Not on file Type:Medicaid Address: [address] [place] [address] [facility] ACO Care Teams Fire Dispatcher Relationship Specialty Start Date End Date Lore Vieira MD [address] [place] [id number] PCP - General Internal Medicine 09/11/17 Paul Lindo MD [address] [place] [address] [address] [place] [address] 09/09/17 Additional Source Comments The information contained in this document represents components of the legal health record. It is not the complete legal health record.[facility]
--- OUTSIDE RECORDS SUMMARY | 2024-12-17 08:48 | XMS_ITS | Clinical Summary ---
Author Organization [facility] Address [address] [place] [address] Care Team Providers Care Loss Control Manager Name Role Phone Lore Vieira Primary Care Provider Allergies Active Allergy Reactions Criticality Noted Date Comments Lisinopril 06/14/2020 Medications Medication Sig Dispensed Refills Start Date End Date Status B [id number] ACID PO Take by mouth. 0 Active [...] f 2) 2022 COVID-19 Vaccine (2 - 2024-2 6 season) 2024 05/17/2020 Influenza Vaccine (#1) 2024 Pneumococcal Vaccine Aged Out 10/21/2017 No long er eligible based on patient's age to complete this topic RSV Ped < 20 months Aged Out No longe r eligible based on patient's age to complete this topic Care Teams Loss Control Manager Relationship Specialty Start Date End Date Lore Vieira [address] [place] [address] PCP - General Internal Medicine 06/14/20
--- OUTSIDE RECORDS SUMMARY | 2024-12-17 08:48 | XMS_ITS | Clinical Summary ---
Author Organization [facility] Address [address] [place] [address] Phone Care Team Providers Care Highway Maintainer Name Role Phone Unavailable Primary Care Provider [...] 94 04/09/2021 9:52 AM EST Temperature 36.8 C (98.3 F) 04/09/2021 9:52 AM EST Respiratory Rate - - Oxygen Saturation 99% [...] Cancer Screening: Sigmoidoscopy 2021 Influenza Vaccine (#1) 2024 Pneumococcal Vaccine: Peds ( 0 to 5 Years) and At-Risk Patients (6 to 49 Years) Discontinued 10/21/2017 Insurance One Care Dual SNP ([id number]) [facility] Care Dual SNP ([id number]) [place] Medicaid [place]
--- OUTSIDE RECORDS SUMMARY | 2024-12-17 08:48 | XMS_ITS | Encounter Summary ---
Author Organization [facility], Address [address] [place] [address] Phone Care Team Providers Care In Room Dining Server Name Role Phone Unavailable Primary Care Provider Unavailabl e Encounter Details Date Type Department Care Team (Late st Contact Info) Description 05/02/2023 Documentation Only [facility] Dr Guillermina [address] [place] [phone] Radu Arevalo MD [address] [place] [address] [place] [phone] Social History Tobacco Use Types Packs/Day Years [...]
[2024-12-17 10:35] LABS: Appearance Urine Clear; Glucose Urine UA Negative (Negative); PH 5.5 (5.0-9.0); Specific Gravity - Urine 1.015 (1.005-1.025)
[2024-12-17 10:45] LABS: Anion Gap 13 (12-20); Blood Urea Nitrogen 39 mg/dL (9-16); Calcium 10.2 mg/dL (8.4-10.2); Carbon Dioxide 24 mmol/L (22-29); Chloride 110 mmol/L (96-108); Estimated Glomerular Filt Rate 42; Magnesium 3.0 mg/dL (1.6-2.6); Potassium 4.8 mmol/L (3.3-5.1); Sodium 142 mmol/L (135-145); Uric Acid 7.5 mg/dL (2.4-5.7)
[2024-12-17 11:41] LABS: Total Protein Urine Random < 7 mg/dL (<12)
[2024-12-19 02:34] LABS: Tacrolimus Prograf 6.3 mcg/L
== END 2024-12-17 08:44 | disposition home or self-care (01) ==
LOC: HO.LAB 08:43
PROVIDERS: PCP Internal Medicine; Visit Provider Internal Medicine Nephrology
DX: I10 Essential (primary) hypertension (principal); M32.9 Systemic lupus erythematosus, unspecified; Z94.0 Kidney transplant status
CPT/HCPCS: 36415; 80051; 80197; 81003; 82310; 82565; 82570; 83735; 84100; 84156; 84520; 84550; 86160; 86225

== ENCOUNTER 2024-12-27 15:09 | Outpatient (AMB) | payer OTHER, SELFPAY ==
--- NOTE | 2024-12-27 15:17 | HO.NEPHOV_ITS ---
Vital Signs 12/27/24 15:24 Height 5 ft 2 in Weight 190 lb 4 oz BMI 34.8 BP 118/72 Blood Pressure Location Rt brachial Position Sitting Pulse 90 Pulse Source Pulse Oximeter Pulse Oximetry (%) 98 Oxygen Delivery Method Room Air Intake Visit Reasons: 1 month f/u with labs-Conf Web Content Executive Required: No Accompanied by: Self / Same As Patient Allergies gabapentin Allergy (Mild, Verified 12/27/24 15:24) Unknown lisinopril Allergy (Mild, Verified 12/27/24 15:24) Unknown losartan Allergy (Mild, Verified 12/27/24 15:24) Unknown HPI Comments Details: Nettie was seen in follow-up of her recent renal transplant on 03/19/2023.( donor). She had PRA of 65. She was induced with Campath. She had delayed graft function. She required for dialysis treatments post transplant. 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 She had been getting immunosuppression with tacrolimus and mycophenolate. Her tacrolimus dosage has been adjusted with the help of ketoconazole. Her baseline serum creatinine has been around 1.2 to 1.5 mg/dL. CMV status of the donor was negative and recipient was positive. EBV status of donor and recipient were positive. Hepatitis B core antibody was negative for donor and recipient. Hepatitis C antibody was negative for donor and recipient. She had been BK virus negative by PCR as of 06/16/23. Prospera was completed on 06/26/2023. There is no history of any rejection to date. Her donor specific antibody has been negative. She had been getting envarsus 11mg and myfortic 720/720mg. Prophylaxis therapy included atovoquone daily ( d/c date 09/18/23 ) and valcyte (d/c date 09/18/23). She had 2 readmissions post transplant (05/03/23 for htn urgency & on 05/14/23 hyperkalemia). Her serum creatinine is at baseline .She currently feels very well and did not have any new complaints at the time of this office visit [facility] Medical History (Updated 07/16/23 @ 06:20 by Jone Gallego MD) Anemia Seizures Hypertension Lupus History of end stage renal disease Surgical History History of kidney transplant Social History Alcohol intake: never Patient Tobacco Use Status: Never used Tobacco Review of Systems Const All systems reviewed & are unremarkable except as noted in HPI and below Physical Exam Vital Signs: Last Vital Signs Pulse 90 12/27/24 15:24 BP 118/72 12/27/24 15:24 Pulse Ox 98 12/27/24 15:24 Oxygen Delivery Method Room Air 12/27/24 15:24 BMI result Body Mass Index 34.8 Const General: comfortable and no acute distress Orientation/consciousness: patient oriented x3 HEENT Head: Yes normocephalic Mouth: Normal oral and palatal mucosa present Eyes EOM: EOMs intact bilaterally Neck Neck: Yes supple Resp Auscultation: clear to auscultation bilaterally Cardio Jugular venous distension: no JVD Rate: regular rate GI Palpation (GI): Soft to palpation Auscultation: normal bowel sounds General: Yes no CVA tenderness Back/Spine/Pelvis Back: no CVA tenderness Skin General skin exam: no rashes or lesions noted Neuro General: patient oriented x3 and moves all extremities Extrem General: Yes no pedal edema Results Reviewed Nephrology Results: 2 Hgb, (12.0-16.0) 13.3 g/dl 10/25/24 WBC, (4.8-10.8) 3.8 X10*3/uL L 10/25/24 Plt Count, (160-400) 214 X10*3/uL 10/25/24 Sodium, (135-145) 142 mmol/L 12/17/24 Potassium, (3.3-5.1) 4.8 mmol/L 12/17/24 Chloride, (96-108) 110 mmol/L H 12/17/24 Carbon Dioxide, (22-29) 24 mmol/L 12/17/24 BUN, (9-16) 39 mg/dL H 12/17/24 Creatinine, (0.5-1.4) 1.34 mg/dL 12/17/24 Calcium, (8.4-10.2) 10.2 mg/dL 12/17/24 Phosphorus, (2.7-4.5) 3.1 mg/dL 12/17/24 PTH Intact, (8.7-77.1) 169.3 pg/mL H 08/22/24 Urine Protein, (Neg-Trace) Negative mg/dL 12/17/24 Urine Creatinine 71.17 mg/dL 12/17/24 Protein/Creatinin Ratio TNP 12/17/24 Assessment & Plan Assessment & Plan (1) Hypertension: Code(s): I10 - Essential (primary) hypertension Category: Medical Qualifiers: Hypertension type: primary hypertension Qualified Code(s): I10 - Essential (primary) hypertension (2) Secondary hyperparathyroidism (of renal origin): Code(s): N25.81 - Secondary hyperparathyroidism of renal origin Category: Medical (3) History of kidney transplant: Code(s): Z94.0 - Kidney transplant status Category: Surgical (4) Lupus: Code(s): M32.9 - Systemic lupus erythematosus, unspecified Category: Medical Plan 1. Allograft function: Serum creatinine is back at baseline ; DSA negative 2. Immunosuppression: C/W with current medications( may have to increase mycophenolate suzy if lupus activity present) 3. BP and volume status: stable; no changes 4. Metabolic parameters: will follow up labs 5. Hematologic parameters: anemia stable; no need for intervention; follow for now 6. Prophylaxis/infection: Prophylaxis therapy included atovoquone daily ( d/dustin date 09/18/23 ) and valcyte (d/dustin date 09/18/23) Orders: Orders Creatinine 2 Months I10 - Essential (primary) hypertension, M32.9 - Systemic lupus erythematosus, unspecified, N25.81 - Secondary hyperparathyroidism of renal origin, Z94.0 - Kidney transplant status Electrolytes 2 Months I10 - Essential (primary) hypertension, M32.9 - Systemic lupus erythematosus, unspecified, N25.81 - Secondary hyperparathyroidism of renal origin, Z94.0 - Kidney transplant status Parathyroid Hormone Intact 2 Months I10 - Essential (primary) hypertension, M32.9 - Systemic lupus erythematosus, unspecified, N25.81 - Secondary hyperparathyroidism of renal origin, Z94.0 - Kidney transplant status Phosphorus 2 Months I10 - Essential (primary) hypertension, M32.9 - Systemic lupus erythematosus, unspecified, N25.81 - Secondary hyperparathyroidism of renal origin, Z94.0 - Kidney transplant status Tacrolimus Prograf 2 Months I10 - Essential (primary) hypertension, M32.9 - Systemic lupus erythematosus, unspecified, N25.81 - Secondary hyperparathyroidism of renal origin, Z94.0 - Kidney transplant status Complete Blood Count Auto Diff 2 Months I10 - Essential (primary) hypertension, M32.9 - Systemic lupus erythematosus, unspecified, N25.81 - Secondary hyperparathyroidism of renal origin, Z94.0 - Kidney transplant status Blood Urea Nitrogen 2 Months I10 - Essential (primary) hypertension, M32.9 - Systemic lupus erythematosus, unspecified, N25.81 - Secondary hyperparathyroidism of renal origin, Z94.0 - Kidney transplant status Calcium 2 Months I10 - Essential (primary) hypertension, M32.9 - Systemic lupus erythematosus, unspecified, N25.81 - Secondary hyperparathyroidism of renal origin, Z94.0 - Kidney transplant status Vitamin D 25-OH Total 2 Months I10 - Essential (primary) hypertension, M32.9 - Systemic lupus erythematosus, unspecified, N25.81 - Secondary hyperparathyroidism of renal origin, Z94.0 - Kidney transplant status Coding Level of Care Code Est Pt Level 4 (87579) Diagnoses Primary hypertension I10 Hypertension type: primary hypertension Secondary hyperparathyroidism (of renal origin) N25.81 History of kidney transplant Z94.0 Lupus M32.9
[2024-12-27 15:24] VITALS: BP 118/72; PULSE 90; O2SAT 98; BMI 34.8
--- OUTSIDE RECORDS SUMMARY | 2024-12-27 18:40 | XMS_ITS | Encounter Summary ---
Author Organization [facility], Address [address] [place] [address] Phone Care Team Providers Care Offset Lithographic Press Setter Name Role Phone Unavailable Primary Care Provider Unavailabl e Encounter Details Date Type Department Care Team (Late st Contact Info) Description 05/02/2023 Documentation Only [facility] Dr Guillermina [address] [place] [phone] Radu Arevalo MD [address] [place] [address] [place] [phone] Social History Tobacco Use Types Packs/Day Years [...]
--- OUTSIDE RECORDS SUMMARY | 2024-12-27 18:40 | XMS_ITS | Clinical Summary ---
Author Organization [facility] Address [address] [place] [address] Care Team Providers Care Manager Gas Name Role Phone Lore Vieira MD Primary Care Provider [phone] Surgical History Surgery Date Site/Laterality Comments BREAST REDUCTION PROCEDURE: CA BREAST REDUCTION CHOLECYSTECTOMY PROCEDURE: CA LAPAROSCOPY SURG CHOLECYSTECTOMY TUBAL LIGATION PROCEDURE: HISTORICAL TUBAL LIGATION OTHER SURGICAL HISTORY 01/2020 PROCEDURE: ---- OTHER ----; COMMENT: peritoneal dialysis port placement OTHER SURGICAL HISTORY Left PROCEDURE: HISTORY OTHER; COMMENT: [place]Part[place]. Crespo upper arm fistula placement under general anesthesia. OTHER SURGICAL HISTORY 07/05/2021 PROCEDURE: [place] LAPAROSCOPY W/LYSIS OF ADHESIONS Medical History Medical History Date Comments Lupus nephritis ([facility] V24 , [facility] V28) 06/29/2017 DX:Lupus nephritis ([facility]) Hyperlipidemia 07/07/2017 DX:Hyperlipidemi a Morbid obesity with BMI of 4 0.0-44.9, adult ([facility] V24, [facility] V28) 06/22/2006 DX:Morbid obesity wit h BMI of 40.0-44.9, adult ([facility]) Vitamin D deficiency 07/07/2017 DX:Vitamin D deficiency CHF (congestive heart failur e) ([facility] V24, [facility] V28) 07/07/2017 DX:CHF (congestive heart mikael lure) ([facility]) Nephrotic syndrome 07/07/2017 DX:Nephrotic syndrome Proteinuria 07/07/2017 DX:Proteinuria; COMMENT: Followed [facility] Nephropathy HTN (hypertension) 07/07/2017 DX:HTN (hyper tension); COMMENT: Followed [facility] Nephropathy ESRD (end stage renal diseas e) on dialysis ([facility] V24, [facility] V28) DX:ESRD (end stage renal disease) on dialysis ([facility]); COMMENT: M/W/F dialysis since Nov 2019. [...] Documents on File Type Date Recorded Patient Interventional Radiology Tech Expl anation Health Care Decision (hx) 09/10/2020 [...] (hx) 09/08/2020 AD HOPKINS DIRECTIVE Care Teams Manager Gas Relationship Specialty Start Date End Date Lore Vieira MD PCP - General Internal Medicine 04/30/17
--- OUTSIDE RECORDS SUMMARY | 2024-12-27 18:40 | XMS_ITS | Clinical Summary ---
Author Organization [facility] Address [address] [place] [address] Phone Care Team Providers Care Plasterer Rough Name Role Phone Unavailable Primary Care Provider [...] 10/21/2017 Insurance One Care Dual SNP ([id number]) [facility] Care Dual SNP ([id number]) [place]
--- OUTSIDE RECORDS SUMMARY | 2024-12-27 18:40 | XMS_ITS | Clinical Summary ---
Author Organization [facility] Address [address] [place] [address] Care Team Providers Care Bisque Tile Burner Name Role Phone Jone Gallego MD Primary Care Provider [phone] Social History Tobacco Use Types Packs/Day Years [...] Zoster (Shingles) Vaccine (1 of 2) 2022 Influenza Vaccine 11/11/2024 COVID-19 Vaccine ( season) 2024 03/22/2021, 07/05/2020, 05/24/2020 Insurance MEDICARE PART A & B [facility] [place]GD MEDICARE OUT OF NETWORK Care Teams Bisque Tile Burner Relationship Specialty Start Date End Date Jone Gallego MD [address] [place] [address] [place] [address] PCP - General Nephrology 08/22/24
--- OUTSIDE RECORDS SUMMARY | 2024-12-27 18:40 | XMS_ITS | Clinical Summary ---
Author Organization [facility] Address [address] [place] [address] Phone Care Team Providers Care Optical Goods Drilling Machine Operator Name Role Phone Lore Vieira MD Primary Care Provider [phone] Paul Lindo MD Unavailable [phone] Social History Tobacco Use Types Packs/Day Years [...] file Medical Devices Not on file Insurance [facility] [place] [facility] [place] [facility] [place] [address] [facility] [place] [facility] [place] [facility] [address] [facility] [place] [facility] [email or web address] [facility] [place] [employer] [place] [employer] [facility] [place] [facility] [place] eBooks in MotionADIRONDACK MEDICAL C[facility] [place] Partly [employer] [place] Partly [employer] [address] [place] [address] [email or web address] ALLANCE [place] [facility] [email or web address] [facility] [place] [facility] ACO Care Teams Optical Goods Drilling Machine Operator Relationship Specialty Start Date End Date Lore Vieira MD [address] [place] [id number] PCP - General Internal Medicine 09/11/17 Paul Lindo MD [address] [place] [address] [address] [place] [address] 09/09/17 Additional Source Comments The information contained in this document represents components of the legal health record. It is not the complete legal health record.[facility]
== END 2024-12-27 15:55 | disposition home or self-care (01) ==
LOC: HO.HKAS 15:10
PROVIDERS: PCP Internal Medicine; Visit Provider Internal Medicine Nephrology
DX: I10 Essential (primary) hypertension (principal); N25.81 Secondary hyperparathyroidism of renal origin; Z94.0 Kidney transplant status; M32.9 Systemic lupus erythematosus, unspecified
CPT/HCPCS: 99214

== ENCOUNTER → 2024-12-27 15:09 | Outpatient (BNVA) | payer OTHER, SELFPAY | PROVIDERS: PCP Internal Medicine; Visit Provider Internal Medicine Nephrology | DX: I10 Essential (primary) hypertension (principal); N25.81 Secondary hyperparathyroidism of renal origin; M32.9 Systemic lupus erythematosus, unspecified; Z94.0 Kidney transplant status | CPT/HCPCS: 99212 ==

== ENCOUNTER 2025-02-28 09:02 | Outpatient (AMB) | payer OTHER, SELFPAY ==
--- NOTE | 2025-02-28 09:03 | MHC.OFFVIS ---
Vital Signs 02/28/25 09:04 Height 5 ft 2 in Weight 192 lb 7.417 oz BMI 35.2 BP 120/74 Blood Pressure Location Lt brachial Position Sitting Pulse 83 Pulse Source Pulse Oximeter Pulse Oximetry (%) 98 Oxygen Delivery Method Room Air Intake Visit Reasons: lupus/ New Patient Intake Note: Patient is a new patient, internally referred by Dr. Gallego for Lupus.She states she has cramps in legs and hands since June. She takes Tylenol arthritis for the pain, she uses compression gloves on her hands. Reactor Fueling Supervisor Required: No Accompanied by: Self / Same As Patient Allergies gabapentin Allergy (Mild, Verified 02/28/25 09:08) Unknown lisinopril Allergy (Mild, Verified 02/28/25 09:08) Unknown losartan Allergy (Mild, Verified 02/28/25 09:08) Unknown HPI Comments Details: 54-year-old female with a history of lupus nephritis status post renal transplant coming in to establish as a new patient for the management of her underlying lupus. Patient reports that she had lupus nephritis onset 30 years ago, at that time she felt short of breath and proceed to the ER to find out that she had lupus nephritis. After 8 years, she was on dialysis for 2 years until and 2022 she underwent kidney transplant which has been successful till date. She is maintained on tacrolimus 12 mg daily and Myfortic acid 720 mg daily. In terms of her lupus she reports have joint pain in the right hand in the PIPs, she also states dull ache in the right shoulder which she attributes to her fracture in 2023. she also endorses muscle cramps in the legs , not knee pain. she states her pain is worse at the end of the day or during activity, she feels better when she wakes up in the morning and joint pain in hand gets worse with activity. She also endorses photosensitivity. no dry eyes sometimes dry mouth no oral ulcers, not on prednisone recently. no raynauds phenomenon no blood clots no miscarriage no pleuritic chest pain no bloody diarrhea no skin rash FH: grandmother had lupus Most recent labs show normal C3-C4 and negative anti dsDNA antibody Other labs include a low white cell count 3.8, this is baseline range, hemoglobin 13.3 platelets 214 She is currently on tacrolimus 11 mg p.o. daily and Myfortic acid 720 mg daily Sodium 142 potassium 4.8 chloride 110 BUN 39 creatinine 1.34 GFR 42 uric acid 7.5 magnesium 3 AST 29 ALT 37 Vital signs reviewed Physical Examination CONSTITUITIONAL Patient alert and cooperative. Well appearing and in no apparent painful distress HEENT Conjunctiva and sclera clear. No lymphadenopathy. CHEST/RESPIRATORY SYSTEM Normal respiratory effort and able to speak in complete sentences. Clear to auscultation bilaterally. No crackles, rales, rhonchi, wheezes heard. CARDIAC SYSTEM Regular rate and rhythm. S1 and S2 heard no murmurs. MSK Hands Right Hand: Patient had difficulty making a fist, particularly closing the 4th digit localized thickening noted of the 4th tendon, likely 4th digit tendinitis. No active synovitis noted in any of the joints. Nontender PIPs MCPs. Left Hand: Able to make a fist. No swelling or tenderness to palpation of the MCPs, PIPs or DIPs. No deformities noted. Wrists Right Wrist: Full ROM to flexion and extension. No swelling or TTP Left Wrist: Full ROM to flexion and extension. No swelling or TTP Elbows Right Elbow: Full ROM. No swelling or TTP. No TTP of the medial epicondyle. No TTP of the lateral epicondyle Left Elbow: Full ROM. No swelling or TTP. No TTP of the medial epicondyle. No TTP of the lateral epicondyle Shoulders Right shoulder: Full ROM. Left shoulder: Full ROM. No swelling noted. No TTP of the AC joint. No TTP of the subacromial bursa. No TTP of the posterior shoulder Hips Right hip: Good ROM. No pain elicited with hip flexion/internal rotation/external rotation Left hip: Good ROM. No pain elicited with hip flexion/internal rotation/external rotation Hip bursa: No tenderness to palpation bilaterally Knees Right knee: Full ROM. No swelling noted. No TTP of the knee joint line. No TTP of pes anserine bursa Left knee: Full ROM. No swelling noted. No TTP of the knee joint line. No TTP of pes anserine bursa. Ankles Right ankle: Good ankle dorsiflexion and plantar flexion. No swelling. No TTP of the ankle joint Left ankle: Good ankle dorsiflexion and plantar flexion. No swelling. No TTP of the ankle joint Feet Right foot: Negative squeeze test Left foot: Negative squeeze test Tender points? MILD TENDERNESS OF THE TROCHANTERIC BURSA ON THE LEFT SIDE SKIN No rashes [facility] Medical History Anemia Seizures Hypertension Lupus History of end stage renal disease Surgical History (Updated 02/28/25 @ 09:13 by Zaida Strauss CMA) Hx of breast reduction, elective History of kidney transplant Social History Alcohol intake: never Patient Tobacco Use Status: Never used Tobacco Physical Exam Vital Signs: BMI result Body Mass Index 35.2 Assessment & Plan Assessment & Plan (1) SLE (systemic lupus erythematosus related syndrome): Comment: 54-year-old female with a history of lupus nephritis status post renal transplant coming in as new patient for managing her underlying SLE. Currently patient is on tacrolimus 12 mg daily and Myfortic acid 720 mg daily. Overall she has good control of her disease. 1. She has localized tenderness of her right 4th flexor tendon, likely 4th digit tendinitis. We will refer her to OT for further evaluation and treatment. We discussed localized cortisone injection however she would like to try OT first. 2. With regards to her localized muscle cramps in the legs, I will check iron profile to rule out iron deficiency anemia which can contribute to muscle cramps 3. There are most recent CT C4 anti dsDNA is within normal limits, going against a flare. We will check ESR CRP today. 4. I will also obtain x-rays of the hands. 5. I discussed the addition of hydroxychloroquine to her medication regimen to prevent flares and prevent end-organ damage, once the blood work and imaging results are done this will be further explored in the next visit. #Long-term Use of Hydroxychloroquine Discussed with patient the risks and benefits of hydroxychloroquine in managing the rheumatic condition Benefits include: - Reduced pain, reduce mortality, maintenance of remission and reduction of flares Risks include: - GI upset, skin hyperpigmentation, retinal toxicity (especially after more than 5 years of use), myopathy Advised yearly ophthalmology visits FOLLOW-UP IN 1 MONTH AFTER THE COMPLETION OF HAND X-RAYS AND BLOOD WORK to discuss the addition of hydroxychloroquine to her medication regimen Code(s): M32.9 - Systemic lupus erythematosus, unspecified Category: Medical (2) Lupus nephritis: Code(s): M32.14 - Glomerular disease in systemic lupus erythematosus Category: Medical (3) Lupus: Code(s): M32.9 - Systemic lupus erythematosus, unspecified Category: Medical (4) SLE (systemic lupus erythematosus related syndrome): Comment: 54-year-old female with a history of lupus nephritis status post renal transplant coming in as new patient for managing her underlying SLE. Currently patient is on tacrolimus 12 mg daily and Myfortic acid 720 mg daily. Overall she has good control of her disease. 1. She has localized tenderness of her right 4th flexor tendon, likely 4th digit tendinitis. We will refer her to OT for further evaluation and treatment. We discussed localized cortisone injection however she would like to try OT first. 2. With regards to her localized muscle cramps in the legs, I will check iron profile to rule out iron deficiency anemia which can contribute to muscle cramps 3. There are most recent CT C4 anti dsDNA is within normal limits, going against a flare. We will check ESR CRP today. 4. I will also obtain x-rays of the hands. 5. I discussed the addition of hydroxychloroquine to her medication regimen to prevent flares and prevent end-organ damage, once the blood work and imaging results are done this will be further explored in the next visit. #Long-term Use of Hydroxychloroquine Discussed with patient the risks and benefits of hydroxychloroquine in managing the rheumatic condition Benefits include: - Reduced pain, reduce mortality, maintenance of remission and reduction of flares Risks include: - GI upset, skin hyperpigmentation, retinal toxicity (especially after more than 5 years of use), myopathy Advised yearly ophthalmology visits FOLLOW-UP IN 1 MONTH AFTER THE COMPLETION OF HAND X-RAYS AND BLOOD WORK to discuss the addition of hydroxychloroquine to her medication regimen Code(s): M32.9 - Systemic lupus erythematosus, unspecified Category: Medical (5) Finger tendinitis: Code(s): M77.8 - Other enthesopathies, not elsewhere classified Category: Medical (6) Muscle cramps: Code(s): R25.2 - Cramp and spasm Category: Medical (7) High blood uric acid level: Comment: Regarding her high blood uric acid level, she states that she had no episode of gout to date. We discussed dietary recommendations to prevent high uric acid levels. Information provided to the patient Code(s): E79.0 - Hyperuricemia without signs of inflammatory arthritis and tophaceous disease Category: Medical Plan 54-year-old female with a history of lupus nephritis status post renal transplant coming in as new patient for managing her underlying SLE. Currently patient is on tacrolimus 12 mg daily and Myfortic acid 720 mg daily. Overall she has good control of her disease. She has localized tenderness of her right 4th flexor tendon, likely 4th digit tendinitis. We will refer her to OT for further evaluation and treatment. We discussed localized cortisone injection however she would like to try OT first. With regards to her localized muscle cramps in the legs, I will check iron profile to rule out iron deficiency anemia which can contribute to muscle cramps There are most recent CT C4 anti dsDNA is within normal limits, going against a flare. We will check ESR CRP today. I will also obtain x-rays of the hands. I discussed the addition of hydroxychloroquine to her medication regimen to prevent flares and prevent end-organ damage, once the blood work and imaging results are done this will be further explored in the next visit. #Long-term Use of Hydroxychloroquine Discussed with patient the risks and benefits of hydroxychloroquine in managing the rheumatic condition Benefits include: - Reduced pain, reduce mortality, maintenance of remission and reduction of flares Risks include: - GI upset, skin hyperpigmentation, retinal toxicity (especially after more than 5 years of use), myopathy Advised yearly ophthalmology visits FOLLOW-UP IN 1 MONTH AFTER THE COMPLETION OF HAND X-RAYS AND BLOOD WORK to discuss the addition of hydroxychloroquine to her medication regimen Orders: Orders Erythrocyte Sedimentation Rate Today Z79.60 - superintendent terminal (current) use of unspecified immunomodulators and immunosuppressants IRON PROFILE Today M32.9 - Systemic lupus erythematosus, unspecified XR Hand Bilat min 3v Today M32.14 - Glomerular disease in systemic lupus erythematosus, M32.9 - Systemic lupus erythematosus, unspecified C Reactive Protein Today Z79.60 - superintendent terminal (current) use of unspecified immunomodulators and immunosuppressants OT Evaluation and Treatment Today M32.9 - Systemic lupus erythematosus, unspecified, M77.8 - Other enthesopathies, not elsewhere classified Coding Level of Care Code New Pt Level 5 (89308) Diagnoses SLE (systemic lupus erythematosus related syndrome) M32.9 Lupus nephritis M32.14 Lupus M32.9 Finger tendinitis M77.8 Muscle cramps R25.2 High blood uric acid level E79.0
[2025-02-28 09:04] VITALS: BP 120/74; PULSE 83; O2SAT 98; BMI 35.2
--- OUTSIDE RECORDS SUMMARY | 2025-02-28 18:44 | XMS_ITS | Clinical Summary ---
Author Organization [facility] Address [address] [place] [address] Care Team Providers Care Motor Equipment Lieutenant Name Role Phone Jone Gallego MD Primary Care Provider [phone] Social History Tobacco Use Types Packs/Day Years [...] 2) 2022 Influenza Vaccine 11/11/2024 COVID-19 Vaccine (2024- season) 2024 03/22/2021, 07/05/2020, 05/24/2020 RSV Vaccine 50 years and old er and Patients (1 - 1-dose 75+ series) 2047 Insurance MEDICARE PART A & B [facility] MEDICARE OUT OF NETWORK Care Teams Motor Equipment Lieutenant Relationship Specialty Start Date End Date Jone Gallego MD [address] [place] [address] [place] [address] PCP - General Nephrology 08/22/24
--- OUTSIDE RECORDS SUMMARY | 2025-02-28 18:45 | XMS_ITS | Encounter Summary ---
Author Organization [facility], Address [address] [place] [address] Phone Care Team Providers Care Radiology Rn Name Role Phone Unavailable Primary Care Provider Unavailabl e Encounter Details Date Type Department Care Team (Late st Contact Info) Description 05/02/2023 Documentation Only [facility] Dr Guillermina GUI[address] [place] [phone] Radu Arevalo MD [address] [place] [address] [place] [phone] Social History Tobacco Use Types Packs/Day Years [...]
--- OUTSIDE RECORDS SUMMARY | 2025-02-28 18:45 | XMS_ITS | Clinical Summary ---
Author Organization [facility] Address [address] [place] [address] Phone Care Team Providers Care Chemical Tester Name Role Phone Unavailable Primary Care Provider [...] 10/21/2017 Insurance One Care Dual SNP ([id number]) [facility] Care Dual SNP ([id number]) [place]
--- OUTSIDE RECORDS SUMMARY | 2025-02-28 18:45 | XMS_ITS | Clinical Summary ---
Author Organization [facility] Address [address] [place] [address] Care Team Providers Care Auger Press Operator Name Role Phone Lore Vieira MD Primary Care Provider [phone] Surgical History Surgery Date Site/Laterality Comments BREAST REDUCTION PROCEDURE: [place] BREAST REDUCTION CHOLECYSTECTOMY PROCEDURE: [place] LAPAROSCOPY SURG CHOLECYSTECTOMY TUBAL LIGATION PROCEDURE: HISTORICAL TUBAL LIGATION OTHER SURGICAL HISTORY 01/2020 PROCEDURE: ---- OTHER ----; COMMENT: peritoneal dialysis port placement OTHER SURGICAL HISTORY Left PROCEDURE: HISTORY OTHER; COMMENT: [place]Partland. Crespo upper arm fistula placement under general anesthesia. OTHER SURGICAL HISTORY 07/05/2021 PROCEDURE: MA LAPAROSCOPY W/LYSIS OF ADHESIONS Medical History Medical History Date Comments Lupus nephritis ([facility] V24 , [facility] V28) 06/29/2017 DX:Lupus nephritis ([facility]) Hyperlipidemia 07/07/2017 DX:Hyperlipidemi a Morbid obesity with BMI of 4 0.0-44.9, adult ([facility] V24, [facility] V28) 06/22/2006 DX:Morbid obesity wit h BMI of 40.0-44.9, adult ([facility]) Vitamin D deficiency 07/07/2017 DX:Vitamin D deficiency CHF (congestive heart failur e) ([facility] V24, [facility] V28) 07/07/2017 DX:CHF (congestive heart mikael lure) ([facility]) Nephrotic syndrome 07/07/2017 DX:Nephrotic syndrome Proteinuria 07/07/2017 DX:Proteinuria; COMMENT: Followed [facility] Nephropathy HTN (hypertension) 07/07/2017 DX:HTN (hyper tension); COMMENT: Followed [facility] Nephropathy ESRD (end stage renal diseas e) on dialysis ([facility] V24, [facility] V28) DX:ESRD (end stage renal disease) on dialysis ([facility]); COMMENT: M/W/F dialysis since Nov [...] Last Done Comments Breast Cancer Screening 1972 Colorectal Cancer Screening: Colonoscopy 1972 Hepatitis B Vaccines (1 of 3 - 19+ 3-dose series) 1991 Cervical Cancer Screening: P ap Smear 1993 Pneumococcal Vaccine: 50+ Years (2 of 2 - PCV) 10/21/2018 10/21/2017 Cholesterol Screening (Lipid Panel) 03/16/2022 HIV Screening 03/16/2022 Hepatitis C Screening 03/16/2022 Social Influencers of Health Screening 03/16/2022 Hypertension/CHF/CAD Annual BMP Blood Test 03/23/2022 DTaP,Tdap,and Td Vaccines (3 - Td or Tdap) 04/28/2022 04/28/2012, 06/22/2006 RSV Immunization Adult Patients (1 - Risk 50-74 years 1-dose series) 2022 Zoster Vaccines (1 of 2) 2022 Depression [...] Documents on File Type Date Recorded Patient Tariff Counsel Expl anation Health Care Decision (hx) 09/10/2020 [...] (hx) 09/08/2020 AD HOPKINS DIRECTIVE Care Teams Auger Press Operator Relationship Specialty Start Date End Date Lore Vieira MD PCP - General Internal Medicine 04/30/17
--- OUTSIDE RECORDS SUMMARY | 2025-02-28 18:46 | XMS_ITS | Clinical Summary ---
Author Organization [facility] Address [address] [place] [phone] Phone Care Team Providers Care Assistant Associate Full Professor Name Role Phone Lore Vieira MD Primary Care Provider [phone] Paul Lindo MD Unavailable [phone] Social History Tobacco Use Types Packs/Day Years [...] file Medical Devices Not on file Insurance [facility] [place] [facility] [place] [facility] [place] [address] [facility] [place] [facility] [place] [facility] Sample6 [facility] [place] [facility] HighRoads [facility] [place] Kamida ALLANCE A[place] M[place] Kamida ALLANCE [place] FLUSHINGDSET CorporationROCHESTER GENERAL [facility]ITAL[facility] [place] TapruROCHESTER GENERAL HOSPITAL[facility] [place] Passenger Baggage [employer] [place] Passenger Baggage [place] [place], [place] [address] [employer]Roads ALLANCE [place] [facility] HighRoads [facility] [place] [facility] AMIE [facility] Care Teams Assistant Associate Full Professor Relationship Specialty Start Date End Date Lore Vieira MD [address] [place] [address] PCP - General Internal Medicine 09/11/17 Paul Lindo MD [address] [place] [address] [address] [place] [address] 09/09/17 Additional Source Comments The information contained in this document represents components of the legal health record. It is not the complete legal health record.[facility]
== END 2025-02-28 10:00 | disposition home or self-care (01) ==
LOC: HO.RHES 09:02
PROVIDERS: PCP Internal Medicine; Visit Provider Student in an Organized Health Care Education/Training Program
DX: M32.14 Glomerular disease in systemic lupus erythematosus (principal); M77.8 Other enthesopathies, not elsewhere classified; R25.2 Cramp and spasm; E79.0 Hyperuricemia without signs of inflammatory arthritis and tophaceous disease; Z79.60 Long term (current) use of unspecified immunomodulators and immunosuppressants
CPT/HCPCS: 99204

== ENCOUNTER → 2025-02-28 09:02 | Outpatient (BNVA) | payer OTHER, SELFPAY | PROVIDERS: PCP Internal Medicine; Visit Provider Student in an Organized Health Care Education/Training Program | DX: M32.14 Glomerular disease in systemic lupus erythematosus (principal); M77.8 Other enthesopathies, not elsewhere classified; R25.2 Cramp and spasm; E79.0 Hyperuricemia without signs of inflammatory arthritis and tophaceous disease; Z79.60 Long term (current) use of unspecified immunomodulators and immunosuppressants | CPT/HCPCS: 99202 ==

== ENCOUNTER 2025-03-11 08:49 | Outpatient (REF) | payer OTHER, SELFPAY ==
--- OUTSIDE RECORDS SUMMARY | 2025-03-11 08:52 | XMS_ITS | Clinical Summary ---
Author Organization [facility] Address [address] [place] [address] Care Team Providers Care Chief Reservoir Engineering Name Role Phone Lore Vieira MD Primary Care Provider [phone] Surgical History Surgery Date Site/Laterality Comments BREAST [...] History Medical History Date Comments Lupus nephritis ([facility] V24 , [facility] V28) 06/29/2017 DX:Lupus nephritis ([facility]) Hyperlipidemia 07/07/2017 DX:Hyperlipidemi a Morbid obesity with BMI of 4 0.0-44.9, adult ([facility] V24, [facility] V28) 06/22/2006 DX:Morbid obesity wit h BMI of 40.0-44.9, adult ([facility]) Vitamin D deficiency 07/07/2017 DX:Vitamin D deficiency CHF (congestive heart failur e) ([facility] V24, [facility] V28) 07/07/2017 DX:CHF (congestive heart mikael lure) ([facility]) Nephrotic syndrome 07/07/2017 DX:Nephrotic syndrome Proteinuria 07/07/2017 DX:Proteinuria; COMMENT: Followed [facility] Nephropathy HTN (hypertension) 07/07/2017 DX:HTN (hyper tension); COMMENT: Followed [facility] Nephropathy ESRD (end stage renal diseas e) on dialysis ([facility] V24, [facility] V28) DX:ESRD (end stage renal disease) on dialysis ([facility]); COMMENT: M/W/F dialysis since Nov 2019. [...] Documents on File Type Date Recorded Patient Sas Analyst Expl anation Health Care Decision (hx) 09/10/2020 [...] 09/08/2020 AD HOPKINS DIRECTIVE Care Teams Chief Reservoir Engineering Relationship Specialty Start Date End Date Lore Vieira MD PCP - General Internal Medicine 04/30/17
--- OUTSIDE RECORDS SUMMARY | 2025-03-11 08:52 | XMS_ITS | Clinical Summary ---
Author Organization [facility] Address [address] [place] [address] Phone Care Team Providers Care Driver Examiner Name Role Phone Unavailable Primary Care Provider [...] 10/21/2017 Insurance One Care Dual SNP ([id number]) [facility] Care Dual SNP ([id number]) [place]
--- OUTSIDE RECORDS SUMMARY | 2025-03-11 08:52 | XMS_ITS | Clinical Summary ---
Author Organization [facility] Address [address] [place] [address] Care Team Providers Care Hand Bootmaker Name Role Phone Jone Gallego MD Primary Care Provider [phone] Social History Tobacco Use Types Packs/Day Years [...] 2047 Insurance MEDICARE PART A & B [facility] MEDIC[facility] OUT OF NETWORK Care Teams Hand Bootmaker Relationship Specialty Start Date End Date Jone Gallego MD [address] [place] [address] [place] [address] PCP - General Nephrology 08/22/24
--- OUTSIDE RECORDS SUMMARY | 2025-03-11 08:52 | XMS_ITS | Clinical Summary ---
Author Organization [facility] Address [address] [place] [address] Phone Care Team Providers Care Bit Grinder Name Role Phone Lore Vieira MD Primary Care Provider [phone] Paul Lindo MD Unavailable [phone] Social History Tobacco Use Types Packs/Day Years [...] file Medical Devices Not on file Insurance [facility] [place] [facility] [place] [facility] [address] [facility] [place] [facility] [place] [facility] [place] Above Security [facility] [place] [facility] [place] Tigerlily [facility] [place] [employer] ALLANCE ACO M[place] [employer] ALLANCE ACO [place] GRANT[facility] PASSExitroundJAMES [facility] [place] AkimboJAMES J. PETERS [facility] [place] [employer] [place] LendFriend [address] [place] [address] [place] Tigerlily [place] [place] [facility] [place] [employer] [facility] [place] [facility] [place] AMIE [employer] ACO Care Teams Bit Grinder Relationship Specialty Start Date End Date Lore Vieira MD [address] [place] [address] PCP - General Internal Medicine 09/11/17 Paul Lindo MD [address] [place] [address] [address] [place] [address] 09/09/17 Additional Source Comments The information contained in this document represents components of the legal health record. It is not the complete legal health record.[facility]
--- OUTSIDE RECORDS SUMMARY | 2025-03-11 08:52 | XMS_ITS | Encounter Summary ---
Author Organization [facility], Address [address] [place] [address] Phone Care Team Providers Care Shell Grader Name Role Phone Unavailable Primary Care Provider Unavailabl e Encounter Details Date Type Department Care Team (Late st Contact Info) Description 05/02/2023 Documentation Only [facility] Dr [address] [place] [id number] Radu Arevalo MD [address] [place] [address] [place] [phone] Social History Tobacco Use Types Packs/Day Years [...]
--- OUTSIDE RECORDS SUMMARY | 2025-03-11 08:53 | XMS_ITS | Clinical Summary ---
Author Organization [facility] Address [address] [place] [address] Care Team Providers Care Cook Starch Name Role Phone Lore Vieira Primary Care Provider Allergies Active Allergy Reactions Criticality Noted Date Comments Lisinopril 06/14/2020 Medications Medication Sig Dispensed Refills Start Date End Date Status B [id number] ACID PO Take by mouth. 0 Active [...] age to complete this topic Care Teams Cook Starch Relationship Specialty Start Date End Date Lore Vieira [address] [place] [address] PCP - General Internal Medicine 06/14/20
[2025-03-11 09:17] LABS: MANUAL DIFF FLAG NO
[2025-03-11 09:57] LABS: Hematocrit 44.2 % (37.0-47.0); Hemoglobin 13.9 g/dl (12.0-16.0); Imm Gran Abs Auto 0.01 X10*3/uL (0.00-0.03); Imm Gran Pct Auto 0.2 % (0.0-0.4); Lymphocytes Absolute Auto 1.7 X10*3/uL (1.2-4.9); Mean Corpuscular HGB Conc 31.4 g/dl (31.0-35.0); Mean Corpuscular Hemoglobin 29.3 pg (27.0-33.0); Mean Corpuscular Volume 93.1 fL (80.0-98.0); NRBC Abs Auto 0.000 X10*3/uL (0.0-0.012); NRBC Pct Auto 0.0 /100WBC (0.0-0.2); Platelet Count 192 X10*3/uL (160-400); Red Blood Count 4.75 X10*6/uL (4.20-5.50); White Blood Count 4.0 X10*3/uL (4.8-10.8)
[2025-03-11 10:35] LABS: Parathyroid Hormone Intact 143.0 pg/mL (8.7-77.1)
[2025-03-11 10:46] LABS: Anion Gap 13 (12-20); Blood Urea Nitrogen 36 mg/dL (9-16); Calcium 10.3 mg/dL (8.4-10.2); Carbon Dioxide 21 mmol/L (22-29); Chloride 114 mmol/L (96-108); Estimated Glomerular Filt Rate 42; Iron 101 mcg/dL (30-160); Percent Iron Saturation 49 % (15-50); Potassium 4.7 mmol/L (3.3-5.1); Sodium 143 mmol/L (135-145); Total Iron Binding Capacity 207 mcg/dL (228-428); Unsaturated Iron Binding 106 ug/dL
[2025-03-12 08:54] LABS: Tacrolimus Prograf 8.8 mcg/L
== END 2025-03-11 08:50 | disposition home or self-care (01) ==
LOC: HO.LAB 08:49
PROVIDERS: Student in an Organized Health Care Education/Training Program; PCP Internal Medicine; Visit Provider Internal Medicine Nephrology
DX: Z13.0 Encounter for screening for diseases of the blood and blood-forming organs and certain disorders involving the immune mechanism (principal); I10 Essential (primary) hypertension; N25.81 Secondary hyperparathyroidism of renal origin; M32.9 Systemic lupus erythematosus, unspecified; Z79.60 Long term (current) use of unspecified immunomodulators and immunosuppressants; Z94.0 Kidney transplant status
CPT/HCPCS: 36415; 80051; 80197; 82306; 82310; 82565; 83540; 83970; 84100; 84520; 85025; 85652; 86140

== ENCOUNTER 2025-03-16 15:05 | Outpatient (AMB) | payer OTHER, SELFPAY ==
--- NOTE | 2025-03-16 15:12 | HO.NEPHOV ---
Vital Signs 03/16/25 15:15 Height 5 ft 2 in Weight 193 lb BMI 35.3 BP 110/70 Blood Pressure Location Rt brachial Pulse 75 Pulse Source Pulse Oximeter Pulse Oximetry (%) 95 Oxygen Delivery Method Room Air Intake Visit Reasons: 2mnth w lab-Conf Station Operator Required: No Accompanied by: Self / Same As Patient Allergies gabapentin Allergy (Mild, Verified 03/16/25 15:15) Unknown lisinopril Allergy (Mild, Verified 03/16/25 15:15) Unknown losartan Allergy (Mild, Verified 03/16/25 15:15) Unknown HPI Comments Details: Nettie was seen in follow-up of her recent renal transplant on 03/19/2023.( donor). She had PRA of 65. She was induced with Campath. She had delayed graft function. She required for dialysis treatments post transplant. 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 She had been getting immunosuppression with tacrolimus and mycophenolate. Her tacrolimus dosage has been adjusted with the help of ketoconazole. Her baseline serum creatinine has been around 1.2 to 1.5 mg/dL. CMV status of the donor was negative and recipient was positive. EBV status of donor and recipient were positive. Hepatitis B core antibody was negative for donor and recipient. Hepatitis C antibody was negative for donor and recipient. She had been BK virus negative by PCR as of 06/16/23. Prospera was completed on 06/26/2023. There is no history of any rejection to date. Her donor specific antibody has been negative. She had been getting envarsus 11mg and myfortic 720/720mg. Prophylaxis therapy included atovoquone daily ( d/c date 09/18/23 ) and valcyte (d/c date 09/18/23). She had 2 readmissions post transplant (05/03/23 for htn urgency & on 05/14/23 hyperkalemia). Her serum creatinine is at baseline .She currently feels very well and did not have any new complaints at the time of this office visit [facility] Medical History (Updated 02/28/25 @ 10:31 by Stephanie Gold MD) Renal failure treated with peritoneal dialysis Fibroids Anemia Seizures Hypertension Lupus History of end stage renal disease Surgical History Hx of breast reduction, elective History of kidney transplant Social History Alcohol intake: never Patient Tobacco Use Status: Never used Tobacco Review of Systems Const All systems reviewed & are unremarkable except as noted in HPI and below Physical Exam Const General: comfortable and no acute distress Orientation/consciousness: patient oriented x3 HEENT Head: Yes normocephalic Mouth: Normal oral and palatal mucosa present Eyes EOM: EOMs intact bilaterally Neck Neck: Yes supple Resp Auscultation: clear to auscultation bilaterally Cardio Jugular venous distension: no JVD Rate: regular rate GI Palpation (GI): Soft to palpation Auscultation: normal bowel sounds General: Yes no CVA tenderness Back/Spine/Pelvis Back: no CVA tenderness Skin General skin exam: no rashes or lesions noted Neuro General: patient oriented x3 and moves all extremities Extrem General: Yes no pedal edema Results Reviewed Nephrology Results: Hgb, (12.0-16.0) 13.9 g/dl 03/11/25 WBC, (4.8-10.8) 4.0 X10*3/uL L 03/11/25 Plt Count, (160-400) 192 X10*3/uL 03/11/25 Sodium, (135-145) 143 mmol/L 03/11/25 Potassium, (3.3-5.1) 4.7 mmol/L 03/11/25 Chloride, (96-108) 114 mmol/L H 03/11/25 Carbon Dioxide, (22-29) 21 mmol/L L 03/11/25 BUN, (9-16) 36 mg/dL H 03/11/25 Creatinine, (0.5-1.4) 1.33 mg/dL 03/11/25 Calcium, (8.4-10.2) 10.3 mg/dL H 03/11/25 Phosphorus, (2.7-4.5) 3.1 mg/dL 03/11/25 PTH Intact, (8.7-77.1) 143.0 pg/mL H 03/11/25 Urine Protein, (Neg-Trace) Negative mg/dL 12/17/24 Urine Creatinine 71.17 mg/dL 12/17/24 Protein/Creatinin Ratio TNP 12/17/24 Assessment & Plan Assessment & Plan (1) Hypertension: Code(s): I10 - Essential (primary) hypertension Category: Medical Qualifiers: Hypertension type: primary hypertension Qualified Code(s): I10 - Essential (primary) hypertension (2) Secondary hyperparathyroidism (of renal origin): Code(s): N25.81 - Secondary hyperparathyroidism of renal origin Category: Medical (3) History of kidney transplant: Code(s): Z94.0 - Kidney transplant status Category: Surgical Plan 1. Allograft function: Serum creatinine is back at baseline ; DSA negative 2. Immunosuppression: C/W with current medications( may have to increase mycophenolate suzy if lupus activity present) 3. BP and volume status: stable; no changes 4. Metabolic parameters: will follow up labs 5. Hematologic parameters: anemia stable; no need for intervention; follow for now (Prophylaxis/infection: Prophylaxis therapy included atovoquone daily ( d/dustin date 09/18/23 ) and valcyte (d/dustin date 09/18/23) Orders: Orders Magnesium Today I10 - Essential (primary) hypertension, Z94.0 - Kidney transplant status Electrolytes Today I10 - Essential (primary) hypertension, Z94.0 - Kidney transplant status Calcium Today I10 - Essential (primary) hypertension, Z94.0 - Kidney transplant status Blood Urea Nitrogen Today I10 - Essential (primary) hypertension, Z94.0 - Kidney transplant status Tacrolimus Prograf Today I10 - Essential (primary) hypertension, Z94.0 - Kidney transplant status Other Ref Test - Misc Today I10 - Essential (primary) hypertension, Z94.0 - Kidney transplant status Phosphorus Today I10 - Essential (primary) hypertension, Z94.0 - Kidney transplant status Creatinine Today I10 - Essential (primary) hypertension, Z94.0 - Kidney transplant status Coding Level of Care Code Est Pt Level 4 (34297) Diagnoses Primary hypertension I10 Hypertension type: primary hypertension Secondary hyperparathyroidism (of renal origin) N25.81 History of kidney transplant Z94.0
[2025-03-16 15:15] VITALS: BP 110/70; PULSE 75; O2SAT 95; BMI 35.3
== END 2025-03-16 15:33 | disposition home or self-care (01) ==
LOC: HO.HKAS 15:06
PROVIDERS: PCP Internal Medicine; Visit Provider Internal Medicine Nephrology
DX: I10 Essential (primary) hypertension (principal); N25.81 Secondary hyperparathyroidism of renal origin; Z94.0 Kidney transplant status
CPT/HCPCS: 99214

== ENCOUNTER → 2025-03-16 15:05 | Outpatient (BNVA) | payer OTHER, SELFPAY | PROVIDERS: PCP Internal Medicine; Visit Provider Internal Medicine Nephrology | DX: I10 Essential (primary) hypertension (principal); N25.81 Secondary hyperparathyroidism of renal origin; Z94.0 Kidney transplant status | CPT/HCPCS: 99212 ==

== ENCOUNTER 2025-03-25 07:57 | Outpatient (REF) | payer OTHER, SELFPAY ==
--- NOTE | ~2025-03-25 | XR_ITS ---
Exam: XR HAND 3 VIEWS BILATERAL, bilateral hand x-rays TECHNIQUE: AP, lateral, and ball-catcher views upper extremity, bilateral hands INDICATION: M32.9 - Systemic lupus erythematosus, unspecified COMPARISON: None available. FINDINGS: RIGHT HAND: There is diffuse osteopenia. Joint spaces are preserved. There is no abnormal laxity. There are no erosions. Minute marginal osteophytes are present at the DIP joints of the second, third, fourth digits, and PIP joints of the second, fourth, and fifth digits. LEFT HAND: There is diffuse osteopenia. There is no abnormal laxity on the ball-catcher's view. There are no erosions. There are minute marginal osteophyte involving the second, third, fourth DIP and PIP joints, and IP joint of the thumb There is mild sclerosis at the first CMC joint. XR/XR Hand Bilat min 3v IMPRESSION: Right hand: Osteopenia and mild osteoarthritis Left hand: Osteopenia and mild osteoarthritis Electronically signed by: Marvin Freitas MD 03/27/2025 10:21 AM BAIRON
--- OUTSIDE RECORDS SUMMARY | 2025-03-25 08:01 | XMS_ITS | Clinical Summary ---
Author Organization [facility] Address [address] [place] [address] Care Team Providers Care Technology Intern Name Role Phone Lore Vieira MD Primary Care Provider [phone] Surgical History Surgery Date Site/Laterality Comments BREAST [...] History Medical History Date Comments Lupus nephritis ([facility] V24 , [facility] V28) 06/29/2017 DX:Lupus nephritis ([facility]) Hyperlipidemia 07/07/2017 DX:Hyperlipidemi a Morbid obesity with BMI of 4 0.0-44.9, adult ([facility] V24, [facility] V28) 06/22/2006 DX:Morbid obesity wit h BMI of 40.0-44.9, adult ([facility]) Vitamin D deficiency 07/07/2017 DX:Vitamin D deficiency CHF (congestive heart failur e) ([facility] V24, [facility] V28) 07/07/2017 DX:CHF (congestive heart mikael lure) ([facility]) Nephrotic syndrome 07/07/2017 DX:Nephrotic syndrome Proteinuria 07/07/2017 DX:Proteinuria; COMMENT: Followed [facility] Nephropathy HTN (hypertension) 07/07/2017 DX:HTN (hyper tension); COMMENT: Followed [facility] Nephropathy ESRD (end stage renal diseas e) on dialysis ([facility] V24, [facility] V28) DX:ESRD (end stage renal disease) on dialysis ([facility]); COMMENT: M/W/F dialysis since Nov 2019. [...] Documents on File Type Date Recorded Patient Oracle Etl Developer Expl anation Health Care Decision (hx) 09/10/2020 [...] DIRECTIVE Health Care Decision (hx) 09/10/2020 AD OHPKINS DIRECTIVE Health Care Decision (hx) 09/08/2020 AD [...] (hx) 09/08/2020 AD HOPKINS DIRECTIVE Care Teams Technology Intern Relationship Specialty Start Date End Date Lore Vieira MD PCP - General Internal Medicine 04/30/17
--- OUTSIDE RECORDS SUMMARY | 2025-03-25 08:01 | XMS_ITS | Clinical Summary ---
Author Organization [facility] Address [address] [place] [address] Care Team Providers Care Food Service Hotel Runner Name Role Phone Jone Gallego MD Primary Care Provider [phone] Social History Tobacco Use Types Packs/Day Years [...] 2047 Insurance MEDICARE PART A & B [facility]IC[facility] OUT OF NETWORK Care Teams Food Service Hotel Runner Relationship Specialty Start Date End Date Jone Gallego MD [address] [place] [address] [place] [address] PCP - General Nephrology 08/22/24
--- OUTSIDE RECORDS SUMMARY | 2025-03-25 08:01 | XMS_ITS | Clinical Summary ---
Author Organization [facility] Address [address] [place] [address] Phone Care Team Providers Care Bakery Clerk Name Role Phone Lore Vieira MD Primary Care Provider [phone] Paul Lindo MD Unavailable [phone] Social History Tobacco Use Types Packs/Day Years [...] file Medical Devices Not on file Insurance [facility] [place] [facility] [place] [facility] [place] [address] [facility] [place] [facility] [place] [facility] [employer]unch [facility] [place] [facility] Helpful Alliance [facility] [place] [employer] [place] [employer] [place] Media TechnologiesCENTRAL [facility] [place] ApiphanyCENTRAL ISLIP PSYCHIATRIC [facility] [place] [employer] [place] [employer] [address] [place], [place] [address] Helpful Alliance ALLANCE [place] [facility] Helpful Alliance [facility] [place] [facility] AMIE [facility] ACO Care Teams Bakery Clerk Relationship Specialty Start Date End Date Lore Vieira MD [address] [place] [id number] PCP - General Internal Medicine 09/11/17 Paul Lindo MD [address] [place] [address] [address] [place] [address] 09/09/17 Additional Source Comments The information contained in this document represents components of the legal health record. It is not the complete legal health record.[facility]
--- OUTSIDE RECORDS SUMMARY | 2025-03-25 08:01 | XMS_ITS | Clinical Summary ---
Author Organization [facility] Prior to 09/10/24 Address [address] [place] [address] Care Team Providers Care Corner Cutter Machine Operator Name Role Phone Lore Vieira Primary Care Provider [phone] Allergies Active Allergy Reactions Criticality Noted Date Comments Lisinopril 06/14/2020 Medications Medication Sig Dispensed Refills Start Date End Date Status B [id number]-[id number] ACID PO Take by mouth. 0 Active [...] age to complete this topic Care Teams Corner Cutter Machine Operator Relationship Specialty Start Date End Date Dariel Lorelupis Dudley [address] [place] [address] PCP - General Internal Medicine 06/14/20
== END 2025-03-25 07:58 | disposition home or self-care (01) ==
LOC: HO.XRAY 07:57
PROVIDERS: PCP Internal Medicine; Visit Provider Student in an Organized Health Care Education/Training Program
DX: M32.14 Glomerular disease in systemic lupus erythematosus (principal)
CPT/HCPCS: 73130

== ENCOUNTER → 2025-03-25 08:03 | Outpatient (BNV) | payer OTHER, SELFPAY | PROVIDERS: PCP Internal Medicine; Visit Provider Radiology Diagnostic Radiology | DX: M19.041 Primary osteoarthritis, right hand (principal); M19.042 Primary osteoarthritis, left hand | CPT/HCPCS: 73130 ==

== ENCOUNTER 2025-03-29 08:01 | Outpatient (AMB) | payer OTHER, SELFPAY ==
--- OUTSIDE RECORDS SUMMARY | 2025-03-29 08:05 | XMS_ITS | Clinical Summary ---
Author Organization [facility] Address [address] [place] [address] Care Team Providers Care Double Backer Name Role Phone Jone Gallego MD Primary Care Provider [phone] Social History Tobacco Use Types Packs/Day Years [...] 2047 Insurance MEDICARE PART A & B [facility] MEDICARE OUT OF NETWORK Care Teams Double Backer Relationship Specialty Start Date End Date Jone Gallego MD [address] [place] [address] [place] [address] PCP - General Nephrology 08/22/24
--- OUTSIDE RECORDS SUMMARY | 2025-03-29 08:05 | XMS_ITS | Clinical Summary ---
Author Organization [facility] Prior to 09/10/24 Address [address] [place] [address] Care Team Providers Care Dancing Teacher Name Role Phone Lore Vieira Primary Care Provider [phone] Allergies Active Allergy Reactions Criticality Noted Date Comments Lisinopril 06/14/2020 Medications Medication Sig Dispensed Refills Start Date End Date Status B [id number] ACID PO Take by mouth. 0 Active [...] age to complete this topic Care Teams Dancing Teacher Relationship Specialty Start Date End Date Dariel Lorelupis Dudley [address] [place] [address] PCP - General Internal Medicine 06/14/20
--- OUTSIDE RECORDS SUMMARY | 2025-03-29 08:05 | XMS_ITS | Clinical Summary ---
Author Organization [facility] Address [address] [place] [address] Phone Care Team Providers Care Chief Chemist Name Role Phone Lore Vieira MD Primary Care Provider [phone] Paul Lindo MD Unavailable [phone] Social History Tobacco Use Types Packs/Day Years [...] file Medical Devices Not on file Insurance [facility] [place] [place] [facility] [place] [facility] [place] [address] [facility] [place] [facility] [place] [facility] [employer] [facility] [place] [facility]ki [facility] [place] [employer] ALLANCE [place] EnTouch Controls ALL[facility] [place]Resource InteractiveHUNTINGTON HOSPITAL[facility] [place] E-Line MediaHUNTINGTON HOSPITALO [place] [employer] [place] [employer] [address] [place], [place] [address] [employer]ki [facility] [place] [facility] [place] [facility] AMIE [facility] ACO Care Teams Chief Chemist Relationship Specialty Start Date End Date Lore Vieira MD [address] [place] [address] PCP - General Internal Medicine 09/11/17 Paul Lindo MD [address] [place] [address] [address] [place] [address] 09/09/17 Additional Source Comments The information contained in this document represents components of the legal health record. It is not the complete legal health record.[facility]
[2025-03-29 08:08] VITALS: BP 122/72; PULSE 70; O2SAT 98; BMI 35.2
--- NOTE | 2025-03-29 08:08 | A.OFFVIS_ITS ---
Vital Signs 03/29/25 08:08 Height 5 ft 2 in Weight 192 lb 7.417 oz BMI 35.2 BP 122/72 Blood Pressure Location Lt brachial Position Sitting Pulse 70 Pulse Source Pulse Oximeter Pulse Oximetry (%) 98 Oxygen Delivery Method Room Air Intake Visit Reasons: follow up Intake Note: Patient presents for follow up on lupus, labs, and x-ray review. Machine Stoppage Frequency Checker Required: No Allergies gabapentin Allergy (Mild, Verified 03/29/25 08:19) Unknown lisinopril Allergy (Mild, Verified 03/29/25 08:19) Unknown losartan Allergy (Mild, Verified 03/29/25 08:19) Unknown HPI Comments Details: 54-year-old female with a history of lupus nephritis status post renal tr ansplant coming in as follow up for the management of her underlying lupus. Today she reports some joint pain in her hands, particularly in the right 4th finger-representing finger tendinitis. No active synovitis noted today. Overall she feels well Most recent dsDNA, C3-C4 within normal limits. ESR and CRP are negative. Hand x-rays showed osteopenia and mild osteoarthritis bilaterally, no evidence of erosions. Iron profile is suggestive of anemia of chronic disease, with low TIBC. CMP does not show any significant abnormality, last UPCR was very low. Initial History:Patient reports that she had lupus nephritis onset 30 years ago, at that time she felt short of breath and proceed to the ER to find out that she had lupus nephritis. After 8 years, she was on dialysis for 2 years until and 2022 she underwent kidney transplant which has been successful till date. She is maintained on tacrolimus 12 mg daily and Myfortic acid 720 mg daily. In terms of her lupus she reports have joint pain in the right hand in the PIPs, she also states dull ache in the right shoulder which she attributes to her fracture in 2023. she also endorses muscle cramps in the legs , not knee pain. she states her pain is worse at the end of the day or during activity, she feels better when she wakes up in the morning and joint pain in hand gets worse with activity. She also endorses photosensitivity. no dry eyes sometimes dry mouth no oral ulcers, not on prednisone recently. no raynauds phenomenon no blood clots no miscarriage no pleuritic chest pain no bloody diarrhea no skin rash FH: grandmother had lupus She is currently on tacrolimus 11 mg p.o. daily and Myfortic acid 720 mg daily Sodium 142 potassium 4.8 chloride 110 BUN 39 creatinine 1.34 GFR 42 uric acid 7.5 magnesium 3 AST 29 ALT 37 Vital signs reviewed Physical Examination CONSTITUITIONAL Patient alert and cooperative. Well appearing and in no apparent painful distress HEENT Conjunctiva and sclera clear. No lymphadenopathy. CHEST/RESPIRATORY SYSTEM Normal respiratory effort and able to speak in complete sentences. Clear to auscultation bilaterally. No crackles, rales, rhonchi, wheezes heard. CARDIAC SYSTEM Regular rate and rhythm. S1 and S2 heard no murmurs. MSK Hands * Right Hand: Patient had difficulty making a fist, particularly closing the 4th digit localized thickening noted of the 4th tendon, likely 4th digit tendinitis. No active synovitis noted in any of the joints. Nontender PIPs MCPs. * * Left Hand: Able to make a fist. No swelling or tenderness to palpation of the MCPs, PIPs or DIPs. No deformities noted. Wrists * Right Wrist: Full ROM to flexion and extension. No swelling or TTP * Left Wrist: Full ROM to flexion and extension. No swelling or TTP Elbows * Right Elbow: Full ROM. No swelling or TTP. No TTP of the medial epicondyle. No TTP of the lateral epicondyle * Left Elbow: Full ROM. No swelling or TTP. No TTP of the medial epicondyle. No TTP of the lateral epicondyle Shoulders * Right shoulder: Full ROM. * Left shoulder: Full ROM. No swelling noted. No TTP of the AC joint. No TTP of the subacromial bursa. No TTP of the posterior shoulder Hips * Right hip: Good ROM. No pain elicited with hip flexion/internal rotation/external rotation * Left hip: Good ROM. No pain elicited with hip flexion/internal rotation/external rotation Hip bursa: No tenderness to palpation bilaterally Knees * Right knee: Full ROM. No swelling noted. No TTP of the knee joint line. No TTP of pes anserine bursa * Left knee: Full ROM. No swelling noted. No TTP of the knee joint line. No TTP of pes anserine bursa. Ankles * Right ankle: Good ankle dorsiflexion and plantar flexion. No swelling. No TTP of the ankle joint * Left ankle: Good ankle dorsiflexion and plantar flexion. No swelling. No TTP of the ankle joint Feet * Right foot: Negative squeeze test * Left foot: Negative squeeze test Tender points? * MILD TENDERNESS OF THE TROCHANTERIC BURSA ON THE LEFT SIDE Skin: no rashes PFSH Medical History (Updated 03/29/25 @ 08:45 by Stephanie Gold MD) Renal failure treated with peritoneal dialysis Fibroids Anemia Seizures Hypertension Lupus History of end stage renal disease Surgical History Hx of breast reduction, elective History of kidney transplant Social History Alcohol intake: never Patient Tobacco Use Status: Never used Tobacco Physical Exam Vital Signs: BMI result Body Mass Index 35.2 Assessment & Plan Assessment & Plan (1) Finger tendinitis: Code(s): M77.8 - Other enthesopathies, not elsewhere classified Category: Medical (2) Lupus: Code(s): M32.9 - Systemic lupus erythematosus, unspecified Category: Medical (3) History of kidney transplant: Code(s): Z94.0 - Kidney transplant status Category: Surgical (4) SLE (systemic lupus erythematosus related syndrome): Code(s): M32.9 - Systemic lupus erythematosus, unspecified Category: Medical (5) Lupus nephritis: Code(s): M32.14 - Glomerular disease in systemic lupus erythematosus Category: Medical Plan 54-year-old female with a history of lupus nephritis status post renal transplant coming in as follow up for managing her underlying SLE. Currently patient is on tacrolimus 12 mg daily and Myfortic acid 720 mg daily. Overall she has good control of her disease. Most recent dsDNA, C3-C4 within normal limits. ESR and CRP are negative. Hand x-rays showed osteopenia and mild os teoarthritis bilaterally, no evidence of erosions. Iron profile is suggestive of anemia of chronic disease, with low TIBC. We will start hydroxychloroquine 200 mg b.i.d. in addition to tacrolimus 12 mg daily and Myfortic acid 720 mg daily. #Long-term Use of Hydroxychloroquine Discussed with patient the risks and benefits of hydroxychloroquine in managing the rheumatic condition Benefits include: - Reduced pain, reduce mortality, maintenance of remission and reduction of flares Risks include: - GI upset, skin hyperpigmentation, retinal toxicity (especially after more than 5 years of use), myopathy Advised yearly ophthalmology visits. I will refer to Ophthalmology today. I put in referral to OT for management of right fourth digit finger tendinitis. FOLLOW-UP IN 3 months for lupus surveillance and medication management Orders: Orders OT Evaluation and Treatment Today M77.8 - Other enthesopathies, not elsewhere classified Referrals Ophthalmology Referral M32.14 - Glomerular disease in systemic lupus erythematosus, M32.9 - Systemic lupus erythematosus, unspecified, Z51.81 - Encounter for therapeutic drug level monitoring, Z79.899 - Other [facility] (current) drug therapy, Z94.0 - Kidney transplant status Medications: New hydroxychloroquine (Plaquenil) 200 mg PO BID 60 tabs 3RF Coding Level of Care Code Est Pt Level 4 (91489) Diagnoses Finger tendinitis M77.8 Lupus M32.9 History of kidney transplant Z94.0 SLE (systemic lupus erythematosus related syndrome) M32.9 Lupus nephritis M32.14
== END 2025-03-29 08:43 | disposition home or self-care (01) ==
LOC: HO.RHES 08:02
PROVIDERS: PCP Internal Medicine; Visit Provider Student in an Organized Health Care Education/Training Program
DX: M32.9 Systemic lupus erythematosus, unspecified (principal); M32.14 Glomerular disease in systemic lupus erythematosus; M77.8 Other enthesopathies, not elsewhere classified; Z94.0 Kidney transplant status
CPT/HCPCS: 99214

== ENCOUNTER → 2025-03-29 08:01 | Outpatient (BNVA) | payer OTHER, SELFPAY | PROVIDERS: PCP Internal Medicine; Visit Provider Student in an Organized Health Care Education/Training Program | DX: M32.9 Systemic lupus erythematosus, unspecified (principal); Z94.0 Kidney transplant status; M32.14 Glomerular disease in systemic lupus erythematosus; M77.8 Other enthesopathies, not elsewhere classified | CPT/HCPCS: 99212 ==